=== PATIENT | female | born 1950 | race Hispanic/Latino ===

== ENCOUNTER 2019-05-04 10:51 | Emergency (ER) | payer BC, MEDICARE ==
[~2019-05-04] VITALS: Ht 167.6 cm; Wt 86.2 kg
[2019-05-04] MEDS ORDERED: IBUPROFEN 600 MG TAB PO STA (11:49)
[2019-05-04] MEDS ORDERED: IBUPROFEN 200 MG TAB ONE (12:15)
[2019-05-04] MEDS ORDERED: PENICILLIN G BENZATHINE LA 1.2 MU TBX IM STA (13:17)
[2019-05-04 19:34] VITALS: BP 121/59
== END 2019-05-04 13:42 | disposition home or self-care (01) ==
LOC: FSED 10:51
DX: J02.0 Streptococcal pharyngitis (principal); J01.00 Acute maxillary sinusitis, unspecified; R50.81 Fever presenting with conditions classified elsewhere; I10 Essential (primary) hypertension; M19.90 Unspecified osteoarthritis, unspecified site
CPT/HCPCS: 83518; 87400; 96372; 99283; J0561

== ENCOUNTER 2019-06-16 18:53 | Inpatient (IN) | payer MEDICARE ==
[~2019-06-16] VITALS: Ht 167.6 cm; Wt 84.4 kg
--- NOTE | 2019-06-16 21:10 | Diagnostic Imaging Report ---
EXAM: CHEST SINGLE (PORTABLE) DATE: 06/16/2019 8:30 PM INDICATION: ^SOB ^[id number] ^2039 COMPARISON: None FINDINGS: Lines and tubes: None Heart size normal for projection. No focal pulmonary opacity, pleural effusion or pneumothorax. Upper abdomen unremarkable. No acute bony abnormality. IMPRESSION: No evidence for acute disease. Signed by: Dr. Davis Mason M.D. on 06/16/2019 9:06 PM
[2019-06-16 21:25] LABS: BASOPHILS # (AUTO) 0.1 (0.0-0.1); BASOPHILS % 1.1 % (0.0-1.0); EOSINOPHILS # (AUTO) 0.2 (0.0-0.4); EOSINOPHILS % 2.1 % (0.0-6.0); HEMATOCRIT 39.4 % (34.2-44.1); HEMOGLOBIN 12.2 g/dL (12.0-16.0); LYMPHOCYTES # (AUTO) 1.9 (1.0-3.2); LYMPHOCYTES % 16.4 % (18.0-39.1); MEAN CORPUSCULAR HEMOGLOBIN 27.1 pg (28-32); MEAN CORPUSCULAR VOLUME 87.4 fL (81-99); MONOCYTES % 8.4 % (4.4-11.3); NEUTROPHILS % 69.1 % (38.7-80.0); PLATELET COUNT 313 x10e3/uL (140-360); RED BLOOD COUNT 4.51 x10e6/uL (3.6-5.1)
--- NOTE | 2019-06-16 21:27 | Diagnostic Imaging Report ---
EXAM: CT Abdomen and Pelvis WITHOUT contrast INDICATION: Right flank pain COMPARISON: None. TECHNIQUE: Abdomen and pelvis were scanned utilizing a multidetector helical scanner from the lung base to the pubic symphysis without administration of IV contrast. Absence of intravenous contrast decreases sensitivity for detection of focal lesions and vascular pathology. Coronal and sagittal reformations were obtained. Routine protocol was performed. IV CONTRAST: None ORAL CONTRAST: None COMPLICATIONS: None RADIATION DOSE: Total DLP: 612 mGy*cm Estimated effective dose: (DLP x 0.015 x size factor) mSv CTDIvol has been reviewed. It is below the limits set by the Radiation Protocol Committee (RPC). Dose modulation, iterative reconstruction, and/or weight based adjustment of the mA/kV was utilized to reduce the radiation dose to as low as reasonably achievable. FINDINGS: LINES and TUBES: None. LOWER THORAX : Mild cardiomegaly. Aortic valve calcifications. HEPATOBILIARY: Mild pneumobilia, as seen in patients with prior biliary surgery. No evidence of inflammatory changes. No focal hepatic lesions. No biliary ductal dilation. GALLBLADDER: There are cholecystectomy clips. SPLEEN: No splenomegaly. PANCREAS: No focal masses or ductal dilatation. ADRENALS: No adrenal nodules KIDNEYS/URETERS: No hydronephrosis. No cystic or solid mass lesions. A few punctate nonobstructive right renal calculi. Mild right renal atrophy. Mild urothelial thickening of the right renal pelvis and proximal ureteral. GI TRACT: Small hiatal hernia. No abnormal distention or wall thickening. Bowel anastomotic sutures in the lower mid abdomen with this focal bowel dilation, a common and essentially benign finding seen after bowel anastomosis. Colonic diverticuli without diverticulitis. Appendix is normal. PELVIC ORGANS/BLADDER: Hysterectomy. No adnexal masses. Trace perivesicular fat stranding. LYMPH NODES: No lymphadenopathy. VESSELS: There is mild atherosclerotic disease in the aorta and major arterial branches. PERITONEUM / RETROPERITONEUM: No free air or fluid. BONES: There are degenerative changes in the spine. SOFT TISSUES: Small sublatissimus lipoma in the right lower lateral posterior chest. IMPRESSION: 1. Urinary bladder findings can be seen with cystitis. 2. Subtle findings which can be seen with ascending right urinary tract infection. Mild right renal atrophy and punctate nonobstructive right renal calculi. 3. Colonic diverticulosis without diverticulitis. 4. Mild cardiomegaly. 5. Mild hepatomegaly. 6. Small hiatal hernia. Signed by: Rhett Moctezuma DO on 06/16/2019 9:24 PM
[2019-06-16 21:41] LABS: ALANINE AMINOTRANSFERASE 57 IU/L (0-55); ALBUMIN 3.2 g/dL (3.5-5.0); ALBUMIN/GLOBULIN RATIO 0.7 (0.8-2.0); ALKALINE PHOSPHATASE 272 IU/L (40-150); ANION GAP 12.9 mmol/L (8-16); BLOOD UREA NITROGEN 12 mg/dL (7-26); BUN/CREATININE RATIO 15 (6-25); CALCIUM 9.5 mg/dL (8.4-10.2); CARBON DIOXIDE 26 mmol/L (22-29); CHLORIDE 104 mmol/L (98-107); CREATININE, SERUM 0.81 mg/dL (0.57-1.11); EST GLOMERULAR FILTRATION RATE > 60 ML/MIN (60-); GLUCOSE 112 mg/dL (74-118); POTASSIUM 3.9 mmol/L (3.5-5.1); SODIUM 139 mmol/L (136-145)
[2019-06-16] MEDS ORDERED: CEFEPIME 1GM/NS 0.9% 50 ML 50 ML IV ONE (21:45)
[2019-06-16] MEDS ORDERED: CEFEPIME HCL 1 GM VIAL IV SCH (21:45)
[2019-06-16] MEDS ORDERED: SODIUM CHLORIDE 0.9% 1000ML 1,000 ML IV SCH (21:45)
[2019-06-16 22:04] LABS: BILIRUBIN,URINE NEGATIVE (NEGATIVE); CLARITY,URINE CLEAR (CLEAR); COLOR,URINE YELLOW (YELLOW); KETONES,URINE NEGATIVE (NEGATIVE); LEUKOCYTE ESTERASE ,URINE TRACE (NEGATIVE); NITRITE,URINE POSITIVE (NEGATIVE); PROTEIN,URINE DIPSTICK NEGATIVE (NEGATIVE); URINE UROBILINOGEN 0.2 mg/dL (0.2 - 1)
[2019-06-16 22:18] LABS: BACTERIA,URINE MANY /HPF; EPITHELIAL CELLS,URINE MODERATE /LPF
--- OUTSIDE RECORDS SUMMARY | 2019-06-16 23:43 | XMS REPORT ---
Author Author [facility] Address Unknown Phone Unavailable Care Team Providers Care County Surveyor Name Role Phone Shantal JUAREZ Unavailable Unavailable Problems This patient has no known problems. Allergies, Adverse Reactions, Alerts This patient has no known allergies or adverse reactions. Medications This patient has no known medications. Results Test Description Test Time Test Comments Text Results Atomic Results Result Comments CT ABDOMEN/PELVIS WO 2019 21:11:00 [facility] [address] [address] Patient Name: RAVI CARRANZA MR #: [id number] : 1950 Age/Sex: 69/F Req #: [id number] Adm Physician: Ordered by: PATRIA HOYOS DO Report #: [id number] Location: ER Room/Bed: Procedure: [id number] CT/CT ABDOMEN/PELVIS WO Exam Date: 06/16/19 Exam Time: 2039 REPORT STATUS: Signed EXAM: CT Abdomen and Pelvis WITHOUT contrast INDICATION: Right flank pain COMPARISON: None. TECHNIQUE: Abdomen and pelvis were scanned utilizing a multidetector helical scanner from the lung base to the pubic symphysis without administration of IV contrast. Absence of intravenous contrast decreases sensitivity for detection of focal lesions and vascular pathology. Coronal and sagittal reformations were obtained. Routine protocol was performed. IV CONTRAST: None ORAL CONTRAST: None COMPLICATIONS: None RADIATION DOSE: Total DLP: 612 mGy*cm Estimated effective dose: (DLP x 0.015 x size factor) mSv CTDIvol has been reviewed. It is below the limits set by the Radiation Protocol Committee (RPC). Dose modulation, iterative reconstruction, and/or weight based adjustment of the mA/kV was utilized to reduce the radiation dose to as low as reasonably achievable. FINDINGS: LINES and TUBES: None. LOWER THORAX : Mild cardiomegaly. Aortic valve calcificat ions. HEPATOBILIARY: Mild pneumobilia, as seen in patients with prior biliary surgery. No evidence of inflammatory changes. No focal hepatic lesions. No biliary ductal dilation. GALLBLADDER: There are cholecystectomy clips. SPLEEN: No splenomegaly. PANCREAS: No focal masses or ductal dilatation. ADRENALS: No adrenal nodules KIDNEYS/URETERS: No hydronephrosis. No cystic or solid mass lesions. A few punctate nonobstructive right renal calculi. Mild right renal atrophy. Mild urothelial thickening of the right renal pelvis and proximal ureteral. GI TRACT: Small hiatal hernia. No abnormal distention or wall thickening. Bowel anastomotic sutures in the lower mid abdomen with this focal bowel dilation, a common and essentially benign finding seen after bowel anastomosis. Colonic diverticuli without diverticulitis. Appendix is normal. PELVIC ORGANS/BLADDER: Hysterectomy. No adnexal masses. Trace perivesicular fat stranding. LYMPH NODES: No lymphadenopathy. VESSELS: There is mild atherosclerotic disease in the aorta and major arterial branches. PERITONEUM / RETROPERITONEUM: No free air or fluid. BONES: There are degenerative changes in the spine. SOFT TISSUES: Small sublatissimus lipoma in the right lower lateral posterior chest. IMPRESSION: 1. Urinary bladder findings can be seen with cystitis. 2. Subtle findings which can be seen with ascending right urinary tract infection. Mild right renal atrophy and punctate nonobstructive right renal calculi. 3. Colonic div erticulosis without diverticulitis. 4. Mild cardiomegaly. 5. Mild hepatomegaly. 6. Small hiatal hernia. Signed by: Rhett Moctezuma DO on 2019 9:24 PM Dictated By: RHETT MOCTEZUMA DO 23 Transcribed By: DERRICK on 06/16/192123 COPY TO: PATRIA HOYOS DO CHEST SINGLE (PORTABLE) 2019 21:06:00 [place] [address] Patient Name: RAVI CARRANZA MR #: [id number] : 1950 Age/Sex: 69/F Req #: [id number] Adm Physician: Ordered by: PATRIA HOYOS DO Report #: [id number] Location: ER Room/Bed: Procedure: [id number] DX/CHEST SINGLE (PORTABLE) Exam Date: 06/16/19 Exam Time: 2039 REPORT STATUS: Signed EXAM: CHEST SINGLE (PORTABLE) DATE: 2019 8:30 PM INDICATION: SOB [id number] COMPARISON: None FINDINGS: Lines and tubes: None Heart size normal for projection. No focal pulmonary opacity, pleural effusion or pneumothorax. Upper abdomen unremarkable. No acute bony abnormality. IMPRESSION: No evidence for acute disease. Signed by: Dr. Geoffrey Tellez M.D. on 9:06 PM Dictated By: GEOFFREY TELLEZ MD 05 Transcribed By: DERRICK on 06/16/192105 COPY TO: PATRIA HOYOS DO
[2019-06-17] VITALS (8 sets, daily range): BP systolic 112–170; BP diastolic 53–75
[2019-06-17] MEDS ORDERED: OMEPRAZOLE40 MG PO (00:07)
[2019-06-17] MEDS ORDERED: ENALAPRIL MALEA20 MG PO (00:07)
--- NOTE | 2019-06-17 00:30 | NUR ---
patient is a new admit that arrived via stretcher. patient is awake and talking. patient has been assisted into the bed. bed is in the lowest position and call olsen is within reach. will continue to monitor patient.
[2019-06-17] MEDS: ACETAMINOPHEN 325 MG TAB PO PRN ×2 (01:19→15:41)
--- NOTE | 2019-06-17 07:06 | NUR ---
report given to day nurse. patient is resting comfortably in bed. bed is in lowest position and call olsen is within reach.
[2019-06-17] MEDS ORDERED: SODIUM CHLORIDE 0.9% 250ML 250 ML ONE (16:12)
[2019-06-17] MEDS: ENALAPRIL MALEATE 10 MG TAB PO SCH (16:32)
[2019-06-17] MEDS: CEFTRIAXONE SOD 1 GM/NS 50 ML 50 ML IV SCH (16:32)
--- NOTE | 2019-06-17 20:37 | NUR ---
Received report from day nurse. Patient is resting comfortably in bed. Bed is in lowest position and call olsen is within reach. Will continue to monitor patient.
[2019-06-18] VITALS (8 sets, daily range): BP systolic 129–147; BP diastolic 59–70
--- NOTE | 2019-06-18 06:55 | NUR ---
report given to day nurse. patient is resting comfortably in bed. bed is in lowest position and call olsen is within reach.
[2019-06-18 07:12] LABS: BASOPHILS # (AUTO) 0.1 (0.0-0.1); BASOPHILS % 1.5 % (0.0-1.0); EOSINOPHILS # (AUTO) 0.3 (0.0-0.4); HEMATOCRIT 35.5 % (34.2-44.1); HEMOGLOBIN 10.8 g/dL (12.0-16.0); LYMPHOCYTES # (AUTO) 1.9 (1.0-3.2); MEAN CORPUSCULAR HEMOGLOBIN 26.7 pg (28-32); MEAN CORPUSCULAR HGB CONC 30.4 g/dL (31-35); MEAN CORPUSCULAR VOLUME 87.7 fL (81-99); MONOCYTES # (AUTO) 0.5 (0.2-0.8); MONOCYTES % 8.7 % (4.4-11.3); NEUTROPHILS # (AUTO) 3.2 (2.1-6.9); NEUTROPHILS % 50.9 % (38.7-80.0); PLATELET COUNT 322 x10e3/uL (140-360); RED BLOOD COUNT 4.05 x10e6/uL (3.6-5.1)
[2019-06-18 07:40] LABS: ANION GAP 11.2 mmol/L (8-16); BLOOD UREA NITROGEN 10 mg/dL (7-26); BUN/CREATININE RATIO 13 (6-25); CALCIUM 9.1 mg/dL (8.4-10.2); CARBON DIOXIDE 27 mmol/L (22-29); CHLORIDE 108 mmol/L (98-107); CREATININE, SERUM 0.78 mg/dL (0.57-1.11); EST GLOMERULAR FILTRATION RATE > 60 ML/MIN (60-); GLUCOSE 111 mg/dL (74-118); POTASSIUM 4.2 mmol/L (3.5-5.1); SODIUM 142 mmol/L (136-145)
[2019-06-18] MEDS: ACETAMINOPHEN 325 MG TAB PO PRN ×2 (08:56→20:22)
[2019-06-18] MEDS: PANTOPRAZOLE SOD 40 MG TABEC PO SCH (09:02)
[2019-06-18] MEDS: ENALAPRIL MALEATE 10 MG TAB PO SCH ×2 (09:03→16:22)
[2019-06-18 09:18] LABS: BILIRUBIN,URINE NEGATIVE (NEGATIVE); CLARITY,URINE SL CLOUDY (CLEAR); COLOR,URINE YELLOW (YELLOW); KETONES,URINE NEGATIVE (NEGATIVE); LEUKOCYTE ESTERASE ,URINE NEGATIVE (NEGATIVE); NITRITE,URINE NEGATIVE (NEGATIVE); PROTEIN,URINE DIPSTICK NEGATIVE (NEGATIVE); URINE UROBILINOGEN 0.2 mg/dL (0.2 - 1)
[2019-06-18 09:35] LABS: BACTERIA,URINE MODERATE /HPF; EPITHELIAL CELLS,URINE FEW /LPF; RBC,URINE 0-5 /HPF (0-5)
[2019-06-18] MEDS: CEFTRIAXONE SOD 1 GM/NS 50 ML 50 ML IV SCH (16:21)
--- NOTE | 2019-06-18 17:44 | NUR ---
Pt aox4 and able to verbalize needs. Denies any pain at this time. 0 s/s of acute distress noted.
--- NOTE | 2019-06-18 19:05 | NUR ---
received report from day nurse. patient is resting comfortably in the bed. bed is in the lowest position and call olsen is within reach.
[2019-06-19] VITALS (8 sets, daily range): BP systolic 120–170; BP diastolic 60–88
[2019-06-19 06:23] LABS: BASOPHILS # (AUTO) 0.1 (0.0-0.1); BASOPHILS % 1.7 % (0.0-1.0); EOSINOPHILS # (AUTO) 0.3 (0.0-0.4); EOSINOPHILS % 5.5 % (0.0-6.0); HEMOGLOBIN 11.5 g/dL (12.0-16.0); LYMPHOCYTES # (AUTO) 1.8 (1.0-3.2); LYMPHOCYTES % 30.2 % (18.0-39.1); MEAN CORPUSCULAR HGB CONC 31.1 g/dL (31-35); MEAN CORPUSCULAR VOLUME 86.9 fL (81-99); MONOCYTES # (AUTO) 0.4 (0.2-0.8); MONOCYTES % 7.4 % (4.4-11.3); NEUTROPHILS # (AUTO) 3.2 (2.1-6.9); PLATELET COUNT 362 x10e3/uL (140-360); RED BLOOD COUNT 4.26 x10e6/uL (3.6-5.1); RED CELL DISTRIBUTION WIDTH 12.9 % (11.7-14.4)
[2019-06-19 06:53] LABS: ALANINE AMINOTRANSFERASE 47 IU/L (0-55); ALBUMIN 2.8 g/dL (3.5-5.0); ALBUMIN/GLOBULIN RATIO 0.7 (0.8-2.0); ALKALINE PHOSPHATASE 202 IU/L (40-150); ANION GAP 11.4 mmol/L (8-16); BLOOD UREA NITROGEN 11 mg/dL (7-26); BUN/CREATININE RATIO 15 (6-25); CALCIUM 9.4 mg/dL (8.4-10.2); CARBON DIOXIDE 29 mmol/L (22-29); CHLORIDE 105 mmol/L (98-107); CREATININE, SERUM 0.75 mg/dL (0.57-1.11); EST GLOMERULAR FILTRATION RATE > 60 ML/MIN (60-); GLUCOSE 116 mg/dL (74-118); POTASSIUM 4.4 mmol/L (3.5-5.1); SODIUM 141 mmol/L (136-145)
--- NOTE | 2019-06-19 07:26 | NUR ---
report given to day nurse. patient is resting in bed. bed is in lowest position and call light is within reach.
--- NOTE | 2019-06-19 07:35 | NUR ---
PATIENT IN BED RESTING WITH NO S/S OF DISCOMFORT. CALL RECEIVED FROM LAB STATING THAT PATIENT HAS ESBL IN URINE. CALL PLACE TO MD, AWAITING CALL BACK. ISOLATION CART IN PLACE. BED IN LOWER POSITION, CALL LIGHT AT REACH.
[2019-06-19] MEDS: PANTOPRAZOLE SOD 40 MG TABEC PO SCH (07:58)
[2019-06-19] MEDS ORDERED: LORAZEPAM 1 MG TAB PO ONE (09:00)
[2019-06-19] MEDS ORDERED: GADOBENATE DIMEGLUMINE 1 ML IV ONE (09:05)
[2019-06-19] MEDS ORDERED: SODIUM CHLORIDE 0.9% 50ML 50 ML ONE (09:05)
[2019-06-19] MEDS: ENALAPRIL MALEATE 10 MG TAB PO SCH ×2 (09:14→17:21)
--- NOTE | 2019-06-19 09:17 | NUR ---
PATIENT OFF UNIT TO RADIOLOGY.
--- NOTE | 2019-06-19 10:12 | NUR ---
PATIENT BACK TO UNIT FROM RADIOLOGY. IN BED WITH CALL LIGHT AT REACH.
[2019-06-19] MEDS: MEROPENEM 500MG/ NS 50ML 50 ML IV SCH ×2 (11:14→18:00)
--- NOTE | 2019-06-19 11:52 | NUR ---
CONSENT SIGNED FOR PICC LINE PLACEMENT. RADIOLOGY NOTIFIED.
--- NOTE | 2019-06-19 13:04 | Diagnostic Imaging Report ---
EXAMINATION: CHEST XRAY LINE PLACEMENT INDICATION: Line placement COMPARISON: Chest radiograph 06/16/2019 FINDINGS: LINES/TUBES:Interval left PICC line placement, terminating at the superior vena cava. LUNGS:The lungs are well-inflated. No focal consolidation or pulmonary edema. PLEURA:No pleural effusion or pneumothorax. MEDIASTINUM:The cardiomediastinal silhouette appears normal in size and shape. BONES/SOFT TISSUES:No acute osseous injury. ABDOMEN:No free air under the diaphragm. IMPRESSION: Left PICC line terminates at the superior vena cava. No focal pneumonia or pulmonary edema. Signed by: Gibran Curz MD on 06/19/2019 1:01 PM
--- NOTE | 2019-06-19 13:13 | NUR ---
REQUEST RECEIVED FOR SNF VS HH FOR ABX. CM MET W THE PT AT THE BEDSIDE TO DISCUSS DC PLANNING. PT STATES SHE WOULD PREFER TO RETURN HOME IF POSSIBLE. DISCUSSED [facility]. STATES SHE HAS 3 DAUGHTERS AND HER IS ALSO TEACHABLE. STATES SHE WILL ALSO LEARN TO ADMINISTER MEDS IF NEEDED. PT STATES SHE IS IND W ADL'S. ALSO DISCUSSED A POSSIBLE COPAY. PT STATES IF THERE IS A LARGE COPAY SHE MAY CONSIDER A SNF. TOMAS NOTIFIED OF THIS.
--- NOTE | 2019-06-19 17:11 | Diagnostic Imaging Report ---
TECHNIQUE: MRI of the abdomen and MRCP WITHOUT and WITH intravenous contrast. 3-D volume reconstructions were obtained to evaluate the biliary ductal system. INDICATION: ^ABN LIVER ENZYMES ^Y. COMPARISON: CT from 06/16/2019. FINDINGS: LOWER THORAX: Unremarkable. LIVER: The liver is enlarged. No hepatic signal abnormality. There is an area of mild increased T2-weighted signal in segment V which measures 3.1 cm on axial T2-weighted image 20. This does mildly hyperenhancement on delayed phase imaging. There is mild interstitial diffusion in this area as well. BILIARY: Prior cholecystectomy. Pneumobilia. The common bile duct measures 0.3 cm in diameter. There has likely been a prior hepaticojejunostomy. SPLEEN: No splenomegaly. PANCREAS: No focal masses or ductal dilatation. ADRENALS: No adrenal nodules. KIDNEYS/URETERS: No hydronephrosis or solid mass lesions. Mild right renal cortical scarring. PERITONEUM/RETROPERITONEUM: No free fluid. LYMPH NODES: No lymphadenopathy. VESSELS: Conventional hepatic arterial anatomy. A rounded arterial structure in the hepatic hilum measures 0.7 cm I see on axial image 74 GI TRACT: No distention or wall thickening. Prior small bowel resection and anastomosis with patulous small bowel at the anastomotic site. BONES AND SOFT TISSUES: Unremarkable. IMPRESSION: The pneumobilia makes evaluation for underlying stones suboptimal. However, none is definitely seen. 1. There is a 3.1 cm lesion in the liver which is hyperintense on T2-weighted imaging with mildly restricted diffusion and delayed enhancement. If the patient has current signs of infection, phlegmon is the most likely diagnosis, especially given a prior hepaticojejunostomy and pneumobilia. Please correlate for signs of infection. The differential also includes focal nodular hyperplasia, cholangiocarcinoma, and a metastasis. A follow-up MRI of the abdomen with and without intravenous contrast is recommended in 3 months to document resolution after treatment. If the patient does not have signs of infection, consider Eovist MRI. 2. No definite choledocholithiasis. 3. Hepatomegaly. 4. The rounded area of arterial phase hyperenhancement in the hepatic hilum measures 0.7 cm and could be a small right hepatic artery aneurysm but is indeterminate. Close attention on follow-up imaging is recommended. Signed by: Johnny Cross JR, MD on 06/19/2019 5:08 PM
--- NOTE | 2019-06-19 18:56 | NUR ---
REPORT GIVEN TO ON COMING NURSE. PATIENT IN BED RESTING WITH NO S/S OF DISTRESS.
--- NOTE | 2019-06-19 19:15 | NUR ---
patient received awake, alert, lying quietly in bed. no c/o pain noted. pm assessment complete. daughter at the bedside. patient/daughter instructed to call for assistance when needed.
[2019-06-20] VITALS: BP 164/70
[2019-06-20] MEDS: MEROPENEM 500MG/ NS 50ML 50 ML IV SCH ×3 (02:00→17:19)
--- NOTE | 2019-06-20 03:00 | NUR ---
0300 labs drawn from left upper arm picc line at this time and sent to lab.
[2019-06-20 03:27] LABS: ANION GAP 11.1 mmol/L (8-16); BLOOD UREA NITROGEN 13 mg/dL (7-26); BUN/CREATININE RATIO 17 (6-25); CALCIUM 9.4 mg/dL (8.4-10.2); CARBON DIOXIDE 29 mmol/L (22-29); CHLORIDE 102 mmol/L (98-107); CREATININE, SERUM 0.77 mg/dL (0.57-1.11); EST GLOMERULAR FILTRATION RATE > 60 ML/MIN (60-); GLUCOSE 117 mg/dL (74-118); POTASSIUM 4.1 mmol/L (3.5-5.1); SODIUM 138 mmol/L (136-145)
[2019-06-20 04:35] VITALS: BP 125/71
[2019-06-20 04:41] LABS: BASOPHILS # (AUTO) 0.1 (0.0-0.1); BASOPHILS % 1.1 % (0.0-1.0); EOSINOPHILS # (AUTO) 0.3 (0.0-0.4); EOSINOPHILS % 4.1 % (0.0-6.0); HEMATOCRIT 37.6 % (34.2-44.1); HEMOGLOBIN 11.7 g/dL (12.0-16.0); LYMPHOCYTES # (AUTO) 1.8 (1.0-3.2); LYMPHOCYTES % 22.9 % (18.0-39.1); MEAN CORPUSCULAR HEMOGLOBIN 27.5 pg (28-32); MEAN CORPUSCULAR HGB CONC 31.1 g/dL (31-35); MEAN CORPUSCULAR VOLUME 88.3 fL (81-99); MONOCYTES # (AUTO) 0.6 (0.2-0.8); MONOCYTES % 6.9 % (4.4-11.3); NEUTROPHILS # (AUTO) 5.1 (2.1-6.9); PLATELET COUNT 412 x10e3/uL (140-360); RED BLOOD COUNT 4.26 x10e6/uL (3.6-5.1)
[2019-06-20] MEDS ORDERED: MERREM1 GM IV (05:41)
--- NOTE | 2019-06-20 07:25 | NUR ---
PATIENT IN BED RESTING WITH EYES CLOSED, NO RESPIRATORY DISTRESS OBSERVED. BED IN LOWER POSITION, CALL LIGHT AT REACH.
[2019-06-20 07:30] VITALS: BP 169/64
[2019-06-20] MEDS: PANTOPRAZOLE SOD 40 MG TABEC PO SCH (07:53)
[2019-06-20 08:00] VITALS: BP 169/64
[2019-06-20] MEDS: ENALAPRIL MALEATE 10 MG TAB PO SCH ×2 (08:45→17:19)
--- NOTE | 2019-06-20 11:33 | NUR ---
PATIENT OUT OF BED TO CHAIR WATCHING TV, NO COMPLAIN VOICED. CALL LIGHT AT REACH.
[2019-06-20 12:00] VITALS: BP 148/67
--- NOTE | 2019-06-20 12:09 | NUR ---
ORDER RECEIVED FOR MERREM 1GM IV Q12HR X 14DAYS. MET W THE PT AT THE BEDSIDE. CHOICE WAS PROVIDED. PT CHOSE [facility]. CHOICE LETTER WAS SIGNED AND COPY TO PT AND COPY TO CHART. REFERRA WAS FAXED TO [facility] @ OFF: [phone] / FAX: [phone]
--- NOTE | 2019-06-20 15:55 | NUR ---
PATIENT SITTING AT BED SIDE TALKING TO FAMILY MEMBER VISITING. CALL LIGHT AT REACH.
[2019-06-20 16:00] VITALS: BP 126/67
--- NOTE | 2019-06-20 16:05 | NUR ---
HOME HEALTH DISCHARGE NOTE PATIENT ADDRESS WHERE SERVICE WILL BE RECEIVED: [facility] [facility] [address] [place] [address] PATIENT CONTACT NUMBER: [phone] NAME OF HOME HEALTH COMPANY: [facility] TELEPHONE/FAX NUMBER OF COMPANY: OFF: [phone] / FAX: [phone] ADDRESS OF COMPANY: [address] [place] [address] [address] [place] [address] SERVICES TO RECEIVE: IV ANTIBIOTICS; MERREM 1GM IV Q12HRS FOR 14 DAYS. DC PICC LINE AFTER ANTIBIOTIC IS COMPLETED ANTICIPATED DATE SERVICES WILL BEGIN: 06/21/2019 Please call the company above if you have not received a call to schedule a home visit within 24 hours of discharge.
--- NOTE | 2019-06-20 16:05 | NUR ---
IMM LETTER EXPLAINED TO PT. PT VERBALIZED UNDERSTANDING. IMM LETTER SIGNED. COPY TO PT AND COPY TO CHART.
--- NOTE | 2019-06-20 18:10 | NUR ---
PATIENT DISCHARGED HOME . DISCHARGE INSTRUCTIONS AND FOLLOW UP GIVEN TO PATIENT, SHE VERBALIZED UNDERSTANDING. IV TO RIGHT WRIST REMOVED WITH TIP INTACT. ALL PERSONAL ITEMS TAKEN WITH PATIENT. LEFT UNIT PER WHEEL CHAIR TO FRONT LOBBY IN STABLE CONDITION
--- NOTE | 2019-06-26 05:04 | Discharge Summary ---
ADMISSION DIAGNOSES: 1. Urinary tract infection, present on admission. 2. Right upper quadrant abdominal pain. 3. Hypertension. 4. Gastroesophageal reflux disease. DISCHARGE DIAGNOSES: 1. Urinary tract infection, present on admission. 2. Right upper quadrant abdominal pain. 3. Hypertension. 4. Gastroesophageal reflux disease. 5. Rule out GI bleed. 6. Extended-spectrum beta-lactamases Escherichia coli of the urine, present on admission. HISTORY: Hypertension and GERD. SURGICAL HISTORY: Cholecystectomy. FAMILY HISTORY: Noncontributory. HOSPITAL COURSE: A 69-year-old female with history of hypertension, admits with complaints of right upper quadrant pain. She had a cholecystectomy done in history of cholangitis. She also had nausea and vomiting for the last couple of days, but denies nausea and vomiting on admission. On admission, chest x-ray was done, which was negative. CT of the abdomen and pelvis showed urinary bladder findings can be seen with cystitis, colonic diverticulosis without diverticulitis, small hiatal hernia, mild cardiomegaly and hepatomegaly. An MRCP was done, which showed a 3.1 cm lesion in the liver. No definite choledocholithiasis. Hepatomegaly and hepatic hilum measuring 0.7 cm, which could represent a small right hepatic artery aneurysm, but is age indeterminate. Urine culture was sent, which came back positive for ESBL, so the patient had a PICC line placed and 2 weeks of IV Merrem were arranged. At time of discharge, the patient is feeling much better and ready to go home. She understands discharge instruction and agrees to plan. Home health was arranged and the patient will discharge home. Dictated by Yasmeen Hernandez NP MD CLARISA Chopra/MODL /[id number]
== END 2019-06-20 18:05 | disposition home health service (06) | DRG 690 ==
LOC: ER 18:53 → ERHOLD 23:40 → MED/SURG3 06-17 00:29 → OBSVTOIN 06-19 10:46
PROVIDERS: ADMIT Internal Medicine; ATTEND Internal Medicine
PROC: 02HV33Z Insertion of Infusion Device into Superior Vena Cava, Percutaneous Approach (ICD-10-PCS; principal; 2019-06-19)
PROC: B548ZZA Ultrasonography of Superior Vena Cava, Guidance (ICD-10-PCS; 2019-06-19)
DX: N30.00 Acute cystitis without hematuria (principal); Z16.12 Extended spectrum beta lactamase (ESBL) resistance; K57.30 Diverticulosis of large intestine without perforation or abscess without bleeding; K21.9 Gastro-esophageal reflux disease without esophagitis; Z90.49 Acquired absence of other specified parts of digestive tract; E66.9 Obesity, unspecified; Z68.31 Body mass index [BMI] 31.0-31.9, adult; Z86.010 Personal history of colon polyps; B96.20 Unspecified Escherichia coli [E. coli] as the cause of diseases classified elsewhere; Z88.5 Allergy status to narcotic agent; K44.9 Diaphragmatic hernia without obstruction or gangrene; I51.7 Cardiomegaly; R16.0 Hepatomegaly, not elsewhere classified; I72.8 Aneurysm of other specified arteries; I11.9 Hypertensive heart disease without heart failure
CPT/HCPCS: 36415; 36569; 71045; 74176; 74183; 80048; 80053; 81001; 82270; 85025; 87086; 87186; 96365; 99284; G0378; J0692; J0696; J7030; J7050

== ENCOUNTER 2019-06-30 18:56 | Emergency (ER) | payer MEDICARE ==
[~2019-06-30] VITALS: Ht 167.6 cm; Wt 84.4 kg
[~2019-06-30 18:56] MED LIST: ENALAPRIL MALEA20 MG PO; MERREM1 GM IV; OMEPRAZOLE40 MG PO
[2019-06-30] MEDS ORDERED: ACETAMINOPHEN 325 MG TAB ONE (19:07)
[2019-06-30] MEDS ORDERED: ACETAMINOPHEN 325 MG TAB PO ONE (19:15)
[2019-06-30 19:49] LABS: BASOPHILS # (AUTO) 0.1 (0.0-0.1); BASOPHILS % 1.2 % (0.0-1.0); EOSINOPHILS # (AUTO) 0.1 (0.0-0.4); EOSINOPHILS % 1.3 % (0.0-6.0); HEMOGLOBIN 11.3 g/dL (12.0-16.0); LYMPHOCYTES # (AUTO) 1.4 (1.0-3.2); LYMPHOCYTES % 14.7 % (18.0-39.1); MEAN CORPUSCULAR HEMOGLOBIN 27.2 pg (28-32); MEAN CORPUSCULAR HGB CONC 31.4 g/dL (31-35); MEAN CORPUSCULAR VOLUME 86.5 fL (81-99); MONOCYTES # (AUTO) 0.9 (0.2-0.8); MONOCYTES % 9.7 % (4.4-11.3); NEUTROPHILS # (AUTO) 6.8 (2.1-6.9); NEUTROPHILS % 72.7 % (38.7-80.0); PLATELET COUNT 305 x10e3/uL (140-360); RED BLOOD COUNT 4.16 x10e6/uL (3.6-5.1); RED CELL DISTRIBUTION WIDTH 12.8 % (11.7-14.4)
[2019-06-30 20:08] LABS: BILIRUBIN,URINE NEGATIVE (NEGATIVE); CLARITY,URINE SL CLOUDY (CLEAR); COLOR,URINE YELLOW (YELLOW); KETONES,URINE NEGATIVE (NEGATIVE); LEUKOCYTE ESTERASE ,URINE NEGATIVE (NEGATIVE); NITRITE,URINE NEGATIVE (NEGATIVE); PROTEIN,URINE DIPSTICK 1+ (NEGATIVE); URINE UROBILINOGEN 0.2 mg/dL (0.2 - 1)
[2019-06-30 20:09] LABS: BACTERIA,URINE MODERATE /HPF; EPITHELIAL CELLS,URINE MANY /LPF
[2019-06-30 20:10] LABS: ALANINE AMINOTRANSFERASE 29 IU/L (0-55); ALBUMIN 3.1 g/dL (3.5-5.0); ALBUMIN/GLOBULIN RATIO 0.7 (0.8-2.0); ALKALINE PHOSPHATASE 194 IU/L (40-150); ANION GAP 12.9 mmol/L (8-16); BLOOD UREA NITROGEN 13 mg/dL (7-26); BUN/CREATININE RATIO 17 (6-25); CALCIUM 9.3 mg/dL (8.4-10.2); CARBON DIOXIDE 27 mmol/L (22-29); CHLORIDE 97 mmol/L (98-107); CREATININE, SERUM 0.77 mg/dL (0.57-1.11); EST GLOMERULAR FILTRATION RATE > 60 ML/MIN (60-); GLUCOSE 127 mg/dL (74-118); POTASSIUM 3.9 mmol/L (3.5-5.1); SODIUM 133 mmol/L (136-145)
--- NOTE | 2019-06-30 20:36 | Diagnostic Imaging Report ---
EXAMINATION: ABDOMEN ACUTE SERIES W/PA CXR INDICATION: FEVER/PAIN COMPARISON: None FINDINGS: PA and lateral views TUBES and LINES: Cholecystectomy clips LUNGS: Lungs are well inflated. There is no evidence of pneumonia or pulmonary edema. PLEURA: No pleural effusion or pneumothorax. HEART AND MEDIASTINUM: The cardiomediastinal silhouette is unremarkable. BONES AND SOFT TISSUES: No acute osseous lesion. Soft tissues are unremarkable. ABDOMEN AND PELVIS: Normal volume of stool in the colon. No dilated loops of small bowel. No abnormal abdominal calcifications. No abnormal soft tissue masses. No pneumoperitoneum. No acute osseous abnormality. IMPRESSION: No acute abnormality. Signed by: Jaswant Snow MD on 06/30/2019 8:32 PM
[2019-06-30] MEDS ORDERED: MORPHINE SULFATE 5 MG/ML VIAL IV ONE (22:00)
[2019-06-30] MEDS ORDERED: MORPHINE SULFATE 2 MG/ML SYR 1ML IV ONE (22:00)
--- NOTE | 2019-06-30 22:30 | Diagnostic Imaging Report ---
EXAM: CT Abdomen and Pelvis WITH contrast INDICATION: ^lower abdominal pain and fever ^[id number] ^2140 COMPARISON: CT abdomen/pelvis dated 06/16/2019 TECHNIQUE: Abdomen and pelvis were scanned utilizing a multidetector helical scanner from the lung base to the pubic symphysis after administration of IV contrast. Coronal and sagittal reformations were obtained. Dose modulation, iterative reconstruction, and/or weight based adjustment of the mA/kV was utilized to reduce the radiation dose to as low as reasonably achievable. Routine protocol was performed. Scan was performed when during portal venous phase. IV CONTRAST: 100 mL of Isovue-370 ORAL CONTRAST: Water COMPLICATIONS: None RADIATION DOSE: Total DLP: 533.78 mGy*cm Estimated effective dose: (DLP x 0.015 x size factor) mSv CTDIvol has been reviewed. It is below the limits set by the Radiation Protocol Committee (RPC). FINDINGS: LINES and TUBES: None. LOWER THORAX: Unremarkable HEPATOBILIARY: Hepatomegaly. No focal hepatic lesions. No biliary ductal dilation. Mild central and left hepatic lobe pneumobilia. GALLBLADDER: Surgically absent. SPLEEN: No splenomegaly. PANCREAS: No focal masses or ductal dilatation. ADRENALS: No adrenal nodules KIDNEYS/URETERS: Kidneys enhance symmetrically. Minimal right renal hydronephrosis and mild to moderate hydroureter. There is mild right renal cortical atrophy. Left kidney is unremarkable. No left hydronephrosis. No renal stones. GI TRACT: No abnormal distention or evidence of bowel obstruction. Wall thickening and inflammation surrounding the sigmoid colon. Sigmoid diverticulosis. Intact right abdomen bowel anastomosis. Appendix is normal. PELVIC ORGANS/BLADDER: Unremarkable. Hysterectomy. LYMPH NODES: No lymphadenopathy. VESSELS: Unremarkable. PERITONEUM / RETROPERITONEUM: No free air or fluid. BONES: Unchanged right femoral neck sclerotic focus, likely a bone island. SOFT TISSUES: Unremarkable. IMPRESSION: 1. Sigmoid diverticulitis. No evidence of perforation or abscess formation. 2. Minimal right hydronephrosis and mild to moderate right hydroureter with mild right renal cortical atrophy. No evidence of obstructive urolithiasis. Signed by: Dr. Homer Montgomery MD on 06/30/2019 10:27 PM
[2019-06-30] MEDS ORDERED: IOPAMIDOL 370 MG/ML 200 ML INFUS..BTL INJ ONE (22:38)
[2019-06-30] MEDS ORDERED: SODIUM CHLORIDE 0.9% 50ML 50 ML ONE (22:38)
== END 2019-06-30 23:18 | disposition home or self-care (01) ==
LOC: ER 18:56
DX: R10.30 Lower abdominal pain, unspecified (principal); R10.2 Pelvic and perineal pain; R11.2 Nausea with vomiting, unspecified; K57.32 Diverticulitis of large intestine without perforation or abscess without bleeding; I10 Essential (primary) hypertension
CPT/HCPCS: 36415; 74022; 74177; 80053; 81001; 83605; 85025; 87040; 87071; 87205; 99284; J2270; Q9967

== ENCOUNTER → 2019-12-27 | Day surgery (SDC) | payer MEDICARE, OTHER ==
[2019-12-22 12:52] LABS: BASOPHILS # (AUTO) 0.1 (0.0-0.1); BASOPHILS % 1.3 % (0.0-1.0); EOSINOPHILS # (AUTO) 0.3 (0.0-0.4); EOSINOPHILS % 3.7 % (0.0-6.0); HEMATOCRIT 36.8 % (34.2-44.1); HEMOGLOBIN 11.3 g/dL (12.0-16.0); LYMPHOCYTES # (AUTO) 1.7 (1.0-3.2); LYMPHOCYTES % 19.7 % (18.0-39.1); MEAN CORPUSCULAR HEMOGLOBIN 26.9 pg (28-32); MEAN CORPUSCULAR HGB CONC 30.7 g/dL (31-35); MEAN CORPUSCULAR VOLUME 87.6 fL (81-99); MONOCYTES # (AUTO) 0.7 (0.2-0.8); MONOCYTES % 7.9 % (4.4-11.3); NEUTROPHILS # (AUTO) 5.7 (2.1-6.9); NEUTROPHILS % 66.8 % (38.7-80.0); PLATELET COUNT 307 x10e3/uL (140-360); RED CELL DISTRIBUTION WIDTH 13.5 % (11.7-14.4)
[~2019-12-27] MED LIST changes: +FENTANYL CITRATE/PF 100MCG/2 ML INJ ONE; +GABAPENTIN100 MG PO; +GLUCAGON FOR INJ 1 MG VIAL ONE; +HYOSCYAMINE 0.125 MG TAB ONE; +LIDOCAINE HCL 2% LOCAL INJ 5 ML SDV VIAL INJ ONE; +MIDAZOLAM HCL 2 MG/2 ML VIAL ONE; +NITROFURANTOIN100 MG PO; +ONDANSETRON HCL INJ 2MG/ML 2ML 2 MG/ML VIAL ONE; +PROPOFOL IV EMULSION 10 MG/ML 20 ML VIAL ONE; +TYLENOL325 M2 PO
[2019-12-27 10:15] VITALS: BP 112/58
--- NOTE | 2019-12-27 14:36 | Operative Report ---
DATE OF PROCEDURE: 12/27/2019 SURGEON: Elfego Valenzuela MD PROCEDURES: EGD with biopsies, colonoscopy with polypectomy. INDICATIONS FOR EGD: Upper abdominal pain, nausea, bloating. INDICATIONS FOR COLONOSCOPY: Surveillance colonoscopy, personal history of colon polyps. MEDICATIONS: The patient was done under MAC, please see anesthesiologist's note. PROCEDURE IN DETAIL: With the patient in the left lateral decubitus position, a flexible fiberoptic Olympus gastroscope was introduced into the esophagus under direct visualization without any difficulty. There was some patchy erythema noted in distal esophagus. The scope was then advanced with ease into the stomach traversing a small hiatal hernia. Mucosa overlying the antrum and the body revealed some patchy erythema and [id number] edema, and biopsies were obtained and sent to stain for H. pylori. Pylorus was of normal contour and shape, was intubated with ease and the scope was advanced all the way to the second portion of the duodenum. Biopsies were obtained from the proximal second portion and duodenal bulb to rule out sprue. The scope was then withdrawn back into the stomach and retroflexed, mucosa overlying the fundus and the cardia appeared to be within normal limits. The scope was then straightened out, it was subsequently withdrawn, and the patient tolerated the procedure well. IMPRESSION: 1. Distal esophagitis, mild. 2. Small hiatal hernia. 3. Gastritis, biopsied, biopsies sent to stain for Helicobacter pylori. 4. Rule out sprue. PLAN: Follow up histology. Continue omeprazole 40 mg one p.o. q.a.m. before meals. The patient was then turned around and after adequate lubrication of the anal canal, a flexible fiberoptic Olympus colonoscope was inserted into the rectum with ease and advanced all the way to the cecum. Mucosa overlying the cecum appeared to be within normal limits. Two polyps were hot snared from the ascending colon. The transverse appeared to be within normal limits. One polyp was hot biopsied and site was hemoclipped. One polyp was hot snared from the descending colon. Diverticular disease was noted to involve the sigmoid colon. The rectum appeared to be within normal limits. The scope was then retroflexed into the distal rectum and small internal hemorrhoids were noted, none of which was actively bleeding. The scope was then straightened out, it was subsequently withdrawn, and the patient tolerated the procedure well. IMPRESSION: 1. Ascending colon polyps x2, hot snared. 2. Descending colon polyps x2, one hot biopsied and hemoclipped x1, and one hot snared. 3. Diverticulosis. 4. Internal hemorrhoids, none actively bleeding. PLAN: Follow up histology. Initiate high-fiber, low-fat diet. Initiate high-fiber supplement. The patient might benefit from a followup colonoscopy in 3 years. Elfego Valenzuela MD [facility]/ARVINL /[id number] cc: Reg Liriano DO
== END | disposition home or self-care (01) ==
LOC: OR 06:33
PROVIDERS: ATTEND Internal Medicine Gastroenterology
DX: K20.9 Esophagitis, unspecified (principal); K29.70 Gastritis, unspecified, without bleeding; K44.9 Diaphragmatic hernia without obstruction or gangrene; K63.5 Polyp of colon; K57.30 Diverticulosis of large intestine without perforation or abscess without bleeding; K64.8 Other hemorrhoids; D12.2 Benign neoplasm of ascending colon; D12.4 Benign neoplasm of descending colon; Z88.5 Allergy status to narcotic agent; Z01.810 Encounter for preprocedural cardiovascular examination; Z01.812 Encounter for preprocedural laboratory examination; Z11.59 Encounter for screening for other viral diseases
CPT/HCPCS: 36415; 43239; 45385; 85025; 87635; 93005; J1610; J2001; J2250; J2405; J2704; J3010; 45384

== ENCOUNTER 2020-01-08 15:55 | Emergency (ER) | payer MEDICARE, OTHER ==
[~2020-01-08] VITALS: Ht 167.6 cm; Wt 84.6 kg
[~2020-01-08 15:55] MED LIST changes: -FENTANYL CITRATE/PF 100MCG/2 ML INJ ONE; -GLUCAGON FOR INJ 1 MG VIAL ONE; -HYOSCYAMINE 0.125 MG TAB ONE; -LIDOCAINE HCL 2% LOCAL INJ 5 ML SDV VIAL INJ ONE; -MIDAZOLAM HCL 2 MG/2 ML VIAL ONE; -ONDANSETRON HCL INJ 2MG/ML 2ML 2 MG/ML VIAL ONE; -PROPOFOL IV EMULSION 10 MG/ML 20 ML VIAL ONE
--- NOTE | 2020-01-08 16:32 | NUR ---
{null, Report and care hand off given to LEYLA Hercules. }
[2020-01-08] MEDS ORDERED: SODIUM CHLORIDE 0.9% 500ML 500 ML IV STA (16:35)
[2020-01-08] MEDS ORDERED: IOPAMIDOL 370 MG/ML 200 ML INFUS..BTL INJ ONE (16:43)
[2020-01-08] MEDS ORDERED: SODIUM CHLORIDE 0.9% 50ML 50 ML ONE (16:43)
[2020-01-08] MEDS ORDERED: ONDANSETRON HCL INJ 2MG/ML 2ML 2 MG/ML VIAL IV STA (16:54)
[2020-01-08] MEDS ORDERED: ONDANSETRON HCL INJ 2MG/ML 2ML 2 MG/ML VIAL ONE (17:09)
[2020-01-08] MEDS ORDERED: SODIUM CHLORIDE 0.9% 500ML 500 ML ONE (17:10)
--- NOTE | 2020-01-08 17:46 | Diagnostic Imaging Report ---
EXAMINATION: PA and lateral views of the chest. COMPARISON: PA chest 06/30/2019 CLINICAL HISTORY: Dehydrated, constipation DISCUSSION: Lines/tubes: None. Lungs: The lungs are well inflated and clear. There is no evidence of pneumonia or pulmonary edema. Pleura: There is no pleural effusion or pneumothorax. Heart and mediastinum: Cardiomediastinal silhouette is unremarkable. Pulmonary vasculature is normal. Bones and soft tissues: No acute bony abnormalities. Degenerative changes in the thoracic spine IMPRESSION: No acute cardiopulmonary abnormalities. Signed by: Dr. Navdeep Riojas M.D. on 01/08/2020 5:42 PM
--- NOTE | 2020-01-08 18:06 | Diagnostic Imaging Report ---
EXAMINATION: CT of the abdomen and pelvis with contrast. TECHNIQUE: Spiral CT images of the abdomen and pelvis were performed from the lung bases to the lesser trochanters after the intravenous administration of 96 cc of Isovue 370 and the oral administration of water. Coronal and sagittal reformatted images were obtained. COMPARISON: CT abdomen and pelvis with contrast 06/30/2019 CLINICAL HISTORY:Abdominal pain for 3 days DISCUSSION: ABDOMEN/PELVIS: LOWER THORAX:Unremarkable. HEPATOBILIARY: No focal hepatic lesions. No intra or extrahepatic biliary ductal dilation. GALLBLADDER: Cholecystectomy clips. SPLEEN: No splenomegaly. PANCREAS: No focal masses or ductal dilatation. ADRENALS: No adrenal nodules. KIDNEYS/URETERS: No hydronephrosis, stones, or solid mass lesions. Cortical scarring in the right kidney. PELVIC ORGANS/BLADDER: Bladder is unremarkable. Uterus is absent. No adnexal masses. PERITONEUM/RETROPERITONEUM: No free air or fluid. LYMPH NODES: No intra-abdominal, retroperitoneal, pelvic or inguinal lymphadenopathy. VESSELS: The celiac trunk,superior and inferior mesenteric and bilateral renal arteries are patent The portal, superior mesenteric and splenic veins are patent. GI TRACT: 6-7 cm segment of the mid sigmoid colon, which shows moderate wall thickening and moderate surrounding fat stranding (series 2, image 61), very similar to prior CT dated 06/30/2019. 1-2 mm air foci in the sigmoid mesentery (for examples series 2, image 58). No adjacent well-defined enhancing fluid collections. Rest of the bowel shows no wall thickening, dilation or obstruction. Stable postoperative changes in the proximal small bowel. BONES AND SOFT TISSUE: No aggressive lytic or suspicious focal sclerotic lesions. No soft tissue abnormalities. IMPRESSION: 1. Findings consistent with sigmoid diverticulitis. 1-2 mm air foci in the sigmoid mesentery are consistent with a contained microperforation. No blaine pneumoperitoneum or adjacent abscess. Signed by: Dr. Navdeep Riojas M.D. on 01/08/2020 6:02 PM
[2020-01-08] MEDS ORDERED: PIPER-TAZ 3.375 GM 50 ML IV STA (18:21)
[2020-01-08] MEDS ORDERED: PIPER-TAZ 3.375 GM 50 ML ONE (18:39)
[2020-01-08] MEDS ORDERED: SODIUM CHLORIDE 0.9% 1000ML 1,000 ML ONE (18:47)
--- NOTE | 2020-01-08 18:59 | Emergency Department Note ---
History of Present Illnes History of Present Illness Chief Complaint: blq pain History of Present Illness This is a 69 year old female. was doing well until 2 days ago then epigastric pain then acute on chronic epigastric pain that resolved. then 15 hours ago blq pain then nausea Historian: Patient Arrival Mode: Car History limited by: condition of the patient (normal) Transaction Manager Required: No Onset (how long ago): hour(s) (15) Location: blq Quality: sharp Radiation: Denies non-radiation Severity: moderate Onset quality: sudden Duration (how long): hour(s) (15 ) Timing of current episode: constant Progression: worsening Chronicity: recurrent (diverticulitis) Context: Denies recent illness, Denies recent surgery, Denies recent immobiliz ation, Denies recent travel, Denies trauma/injury, Denies new medications, Denies hx of DVT/PE, Denies non-compliance w/ medications Relieving factors: rest Exacerbating factors: movement Associated symptoms: Reports nausea/vomiting (nausea) Treatments prior to arrival: none Past Medical/Family History Physician Review I have reviewed the patient's past medical and family history. Any updates have been documented here. Past Medical History Recent Fever: No Clinical Suspicion of Infectio: No New/Unexplained Change in Ment: No Past Medical History: Hypertension, UTI's, GERD, Osteoarthritis Past Surgical History: Cholecysctectomy, Hysterectomy Other Surgery: EXPLORATORY LAP Social History Smoking Cessation: Never Smoker Alcohol Use: None Any Illegal Drug Use: No TB Exposure/Symptoms: No Physically hurt or threatened: No Other Last Tetanus: UTD Any Pre-Existing Lines (PICC,: No Is patient up to date on immun: Yes Last Flu: No Last Pneumovax: UTD Review of Systems Review of Systems Constitutional: Reports no symptoms EENTM: Reports no symptoms Cardiovascular: Reports no symptoms Respiratory: Reports no symptoms Gastrointestinal: Reports abdominal pain, Reports nausea Genitourinary: Reports no symptoms Musculoskeletal: Reports no symptoms Integumentary: Reports no symptoms Neurological: Reports no symptoms Psychological: Reports no symptoms Endocrine: Reports no symptoms Hematological/Lymphatic: Reports no symptoms Review of other systems: All other systems negative Physical Exam Related Data Allergies: Coded Allergies: codeine (Verified Allergy, Unknown, 06/16/19) hydrocodone (Verified Adverse Reaction, Severe, NAUSEA, 12/21/19) Triage Vital Signs Vital Signs Date Time Temp Pulse Resp B/P (MAP) Pulse Ox O2 Delivery O2 Flow Rate FiO2 01/08/20 16:00 98.9 82 20 137/54 96 Vital signs reviewed: Yes Physical Exam CONSTITUTIONAL Constitutional: Present well-developed, Present well-nourished HENT HENT: Present normocephalic, Present atraumatic, Present oropharynx clear/moist, Present nose normal HENT L/R: Present left ext ear normal, Present right ext ear normal EYES Eyes: Reports PERRL, Reports conjunctivae normal NECK Neck: Present ROM normal PULMONARY Pulmonary: Present effort normal, Present breath sounds normal CARDIOVASCULAR Cardiovascular: Present regular rhythm, Present heart sounds normal, Present capillary refill normal, Present normal rate GASTROINTESTINAL Abdominal: Present soft, Present bowel sounds normal, Present tender, Present guarding, Present other (llq tenderness) GENITOURINARY Genitourinary: Present exam deferred SKIN Skin: Present warm, Present dry MUSCULOSKELETAL Musculoskeletal: Present ROM normal NEUROLOGICAL Neurological: Present alert, Present oriented x 3, Present no gross motor or sensory deficits PSYCHOLOGICAL Psychological: Present mood/affect normal, Present judgement normal Results Laboratory Lab results reviewed: Yes (cbc nl except [id number], nl cmp/lfts, ) Imaging Imaging results reviewed: Yes (ct abd/pelvis= diverticulitis) Impressions CXR= NEGATIVE Assessment & Plan Medical Decision Making MDM spoke to dr west- gen surgeon - at 1835hrs and accepts toransfer of pt to [facility]. spoke to dr mckeon -hospitalist-at 1850hrs and accepts transfer of pt Assessment & Plan Final Impression: (1) Diverticulitis of colon with perforation Last Vital Signs Date Time Temp Pulse Resp B/P (MAP) Pulse Ox O2 Delivery O2 Flow Rate FiO2 01/08/20 16:00 98.9 82 20 137/54 96 Home Meds Reported Medications Omeprazole (OMEPRAZOLE) 40 Mg Capsule., 40 MG PO DAILY 06/17/19 Enalapril Maleate (ENALAPRIL MALEATE) 20 Mg Tablet, 20 MG PO BID 06/17/19 Discontinued Reported Medications Acetaminophen (Tylenol) 325 Mg Capsule, 650 MG PO DAILY 12/21/19 Gabapentin (GABAPENTIN) 100 Mg Capsule, 100 MG PO PRN 12/21/19 Nitrofurantoin Macrocrystal (NITROFURANTOIN) 100 Mg Capsule, 100 MG PO Q12H 12/21/19 Medications in the ED Sodium Chloride 500 ml @ 500 mls/hr Q1H STAT IV Last administered on 01/08/20at 17:10; Admin Dose 500 MLS/HR; Start 01/08/20 at 16:35; Stop 01/08/20 at 17:34; Status DC Sodium Chloride 50 ml @ ud STK-MED ONCE .ROUTE ; Start 01/08/20 at 16:43; Stop 01/08/20 at 16:38; Status DC Iopamidol 74,000 mg STK-MED ONCE INJ ; Start 01/08/20 at 16:43; Stop 01/08/20 at 16:38; Status DC Ondansetron HCl 4 mg NOW STAT IV Last administered on 01/08/20at 17:10; Admin Dose 4 MG; Start 01/08/20 at 16:54; Stop 01/08/20 at 16:58; Status DC Ondansetron HCl 4 mg STK-MED ONCE .ROUTE ; Start 01/08/20 at 17:09; Stop 01/08/20 at 17:05; Status DC Sodium Chloride 500 ml @ ud STK-MED ONCE .ROUTE ; Start 01/08/20 at 17:10; Stop 01/08/20 at 17:05; Status DC Piperacillin Sod/ Tazobactam Sod 50 ml @ 100 mls/hr ONCE STAT IV ; Start 01/08/20 at 18:21; Stop 01/08/20 at 18:50 BRITNI RUIZ Jan 08, 2020 18:59
[2020-01-08] MEDS ORDERED: SODIUM CHLORIDE 0.9% 1000ML 1,000 ML IV STA (19:34)
--- NOTE | 2020-01-08 20:10 | NUR ---
{null, INITIAL CALL TO [facility] MADE AT 1910, INFO TAKEN FOR TRANSFER TO [facility], WHEN CALLED BACK TO ASK ETA FOR AMBULANCE [facility] SHE BAGAN TO EXPLAIN THAT THERE WERE SEVERAL TRANSFERS PENDING OUT OF THE MAIN ER AT [facility], STATED THAT THEY ONLY HAD ONE AMBULANCE AVAILABLE, WHEN ASKED IF SHE HAS EVEN DISPATCHED MY STAINED GLASS JOINER SHE PROCEDED TO TRY AND EXPLAN THAT SHE HAD TO CALL 3 OTHER AMBULANCES FROM AROUND THE [facility] TO TRY TO ACCOMMODATE THE DEMAND, AGAIN I ASKED FOR A YES OR NO QUESTION, HAD MY CALL REQUEST FOR TRANSPORT BEEN DISPATCHED? SHE SAID SHE COULD TRY TO SEE IF ANY OF THESE 3 AMBULANCES COULD BE REROUTED TO MY CALL, (BASICALLY ANSWERING MY QUESTION WITHOUT ANSWERING IT) SHE THOUGHT I WAS BELITTLING HER AND STATED THAT I WAS NOT ALLOWING THEM TO EXPLAIN, I TOLD HER THERE WAS NO NEED TO EXPLAIN ANYTHING AND SHE AGAIN FELT I WAS BEEN ARGUMENTITIVE WHEN I WAS TRYING TO EXPLAIN WHY I THOUGHT IT WAS WRONG OF HER TRYING TO EXPLAIN THERE SHORTCOMINGS INSTEAD OF ANSWERING A SIMPLE YES OR NO QUESTION WHEN I HAD ASKED IF MY CALL HAD BEEN DISPATCHED? CALLED [facility] AT 2017 AND THERE AMBULANCE AND CREW ARRIVED 2027. MY PATIENT WAS TRANSFERRED TO [facility] AT 2044 }
--- NOTE | 2020-01-08 20:19 | NUR ---
{null, [facility] contacted for transport to [facility]. ETA 15-20 min. }
--- NOTE | 2020-01-08 21:20 | NUR ---
{null, [facility] ARRIVED TO [facility] AT 2104 STATING THAT THEY WERE ORIGIANLLY GOING TO MAIN [facility] BUT THAT AT 2045 THEY WERE REROUTED HERE FOR MY PATIENT, NOTIFIED THEM THAT I HAD CANCELLED CALL AND THAT MY PATIENT HAD LEFT APPROX 30 MINUTES PRIOR TO THEIR ARRIVAL, ALSO INFORMED THEM THAT THEY SHOULD PROBABLY RETURN TO MAIN [facility] THEY STILL HAD MULTIPLE TRANSFERS PENDING, 2119 RECVD CALL FROM WAVE GUIDE ASSEMBLER OF [facility] WANTING TO INQUIRE WHY I HAD REQUESTED TO SPEAK TO HIM, I EXPLAINED PRIOR SITUATION AND HOW DAVY ASKED MULTIPLE TIMES TO BE GIVEN AN ETA BC USUALLY IF ITS MORE THAN 90 MINUTES, I USUALLY HAVE TO MAKE ARRANGMENTS WITH OTHER EMS COMPANIES BC WE ARE A FSER AND ONLY ONE NURSE DIFFICULT TO HANDLE CRITICAL PATIENTS WHILE ATTEMPTING TO SEE THE OTHER PATIENTS IN OUR FACILITY, HE ASKED WHY I DISPATCHED THEIR AMBULANCE IF I HAD SUCH A CRITICAL PATIENT HERE? I INFORMED HIM THAT PATIENT HAD LEFT APPROX 30 MIN PRIOR TO THE ARRIVAL OF HIS CREW. }
== END 2020-01-08 20:43 | disposition other institution (70) ==
LOC: FSED 15:55
DX: R10.13 Epigastric pain (principal); R10.30 Lower abdominal pain, unspecified; R11.0 Nausea; K57.20 Diverticulitis of large intestine with perforation and abscess without bleeding
CPT/HCPCS: 36415; 71046; 74177; 80053; 80076; 81003; 82553; 83880; 84484; 85025; 93005; 96374; 99284; J2405; J2543; J7030; J7040; Q9967

== ENCOUNTER 2020-06-08 09:59 | Emergency (ER) | payer MEDICARE ==
[~2020-06-08] VITALS: Ht 170.2 cm; Wt 84.0 kg
[2020-06-08] MEDS ORDERED: ONDANSETRON HCL 4 MG ORAL DISINTEGRATING TAB PO NR (10:30)
[2020-06-08] MEDS ORDERED: PROMETHAZINE HCL (IM) 25 MG/ML VIAL IM ONE ×2 (10:30→11:14)
--- NOTE | 2020-06-08 11:04 | NUR ---
urine culture collected and sent to the lab
[2020-06-08] MEDS ORDERED: PHENERGAN SUPP25 MG PR (11:06)
[2020-06-08] MEDS ORDERED: NITROFURANTOIN100 MG PO (11:06)
[2020-06-08] MEDS ORDERED: ONDANSETRON ODT8 MG PO (11:06)
--- NOTE | 2020-06-08 11:08 | Emergency Department Note ---
History of Present Illnes History of Present Illness Chief Complaint: nausea s/p taking tramadol to control chronic abdominal pain History of Present Illness This is a 69 year old female. h/o chronic abdominal pain since s/p cholecystectomy in the Historian: Patient Arrival Mode: Car History limited by: condition of the patient (normal) Forest Ecologist Required: No Onset (how long ago): hour(s) (5) Location: see above Quality: see above Radiation: Reports non-radiation Severity: moderate Onset quality: gradual Duration (how long): day(s) (2) Timing of current episode: intermittent Progression: worsening Chronicity: new Context: Denies recent illness, Denies recent surgery, Denies recent immobilization, Denies recent travel, Denies trauma/injury, Denies new medications, Denies hx of DVT/PE, Denies non-compliance w/ medications Relieving factors: none Exacerbating factors: none Associated symptoms: Reports nausea/vomiting Treatments prior to arrival: none Past Medical/Family History Physician Review I have reviewed the patient's past medical and family history. Any updates have been documented here. Past Medical History Recent Fever: No Clinical Suspicion of Infectio: No New/Unexplained Change in Ment: No Past Medical History: Hypertension Other Medical History: Cholangitis Past Surgical History: Cholecysctectomy Other Surgery: Liver surgery after it was punctured during cholecystectomy Social History Smoking Cessation: Never Smoker Counseling Performed: No Alcohol Use: None Any Illegal Drug Use: No Physically hurt or threatened: No Other Last Tetanus: UTD Any Pre-Existing Lines (PICC,: No Review of Systems Review of Systems Constitutional: Reports no symptoms EENTM: Reports no symptoms Cardiovascular: Reports no symptoms Respiratory: Reports no symptoms Gastrointestinal: Reports as per HPI Genitourinary: Reports no symptoms Musculoskeletal: Reports no symptoms Integumentary: Reports no symptoms Neurological: Reports no symptoms Psychological: Reports no symptoms Endocrine: Reports no symptoms Hematological/Lymphatic: Reports no symptoms Review of other systems: All other systems negative Physical Exam Related Data Allergies: Coded Allergies: tramadol (Verified Allergy, Intermediate, 06/08/20) codeine (Verified Allergy, Unknown, 06/16/19) hydrocodone (Verified Adverse Reaction, Severe, NAUSEA, 06/08/20) pt can take tylenol Triage Vital Signs Vital Signs Date Time Temp Pulse Resp B/P (MAP) Pulse Ox O2 Delivery O2 Flow Rate FiO2 06/08/20 10:04 97.9 81 18 124/63 97 Room Air Vital signs reviewed: Yes Physical Exam CONSTITUTIONAL Constitutional: Present well-developed, Present well-nourished HENT HENT: Present normocephalic, Present atraumatic, Present oropharynx clear/moist, Present nose normal HENT L/R: Present left ext ear normal, Present right ext ear normal EYES Eyes: Reports PERRL, Reports conjunctivae normal NECK Neck: Present ROM normal, Present supple PULMONARY Pulmonary: Present effort normal, Present breath sounds normal CARDIOVASCULAR Cardiovascular: Present regular rhythm, Present heart sounds normal, Present capillary refill normal, Present normal rate GASTROINTESTINAL Abdominal: Present soft, Present nontender, Present bowel sounds normal GENITOURINARY Genitourinary: Present exam deferred SKIN Skin: Present warm, Present dry MUSCULOSKELETAL Musculoskeletal: Present ROM normal NEUROLOGICAL Neurological: Present alert, Present oriented x 3, Present no gross motor or sensory deficits PSYCHOLOGICAL Psychological: Present mood/affect normal, Present judgement normal Results Laboratory Lab results reviewed: Yes Laboratory comments ua=+nitrites Assessment & Plan Medical Decision Making MDM chronic nausea, uti Assessment & Plan Final Impression: (1) Nausea (2) UTI (urinary tract infection) Depart Disposition: HOME, SELF-CARE Last Vital Signs Date Time Temp Pulse Resp B/P (MAP) Pulse Ox O2 Delivery O2 Flow Rate FiO2 06/08/20 10:04 97.9 81 18 124/63 97 Room Air Home Meds Active Scripts Nitrofurantoin Macrocrystal (NITROFURANTOIN) 100 Mg Capsule, 100 MG PO Q12H, #20 TAB Prov:BRITNI RUIZ 06/08/20 Promethazine Hcl* (PHENERGAN SUPP*) 25 Mg Supp, 25 MG KS Q4HR PRN for NAUSEA AND VOMITING, #30 SUPP.RECT take after zofran to control nausea/vomiting if need be Prov:BRITNI RUIZ 06/08/20 Ondansetron (ONDANSETRON ODT) 8 Mg Tab.rapdis, 4 MG PO Q4HR PRN for NAUSEA AND VOMITING, #30 TAB Prov:BRITNI RUIZ 06/08/20 Reported Medications Omeprazole (OMEPRAZOLE) 40 Mg Capsule.dr, 40 MG PO DAILY 06/17/19 Enalapril Maleate (ENALAPRIL MALEATE) 20 Mg Tablet, 20 MG PO BID 06/17/19 Medications in the ED Promethazine HCl 25 mg ONCE ONCE IM ; Start 06/08/20 at 10:30; Stop 06/08/20 at 10:31 Ondansetron HCl 4 mg ONCE PO ; Start 06/08/20 at 10:30; Stop 06/08/20 at 11:59 BRITNI RUIZ Jun 08, 2020 11:08
[2020-06-08] MEDS ORDERED: ONDANSETRON HCL 4 MG ORAL DISINTEGRATING TAB ONE (11:13)
--- OUTSIDE RECORDS SUMMARY | 2020-06-08 11:16 | XMS REPORT | Clinical Summary ---
Author Author [facility] Address Unknown Phone Unavailable Care Team Providers Care License Examiner Name Role Phone Reg Liriano DO PCP Allergies No Known Allergies Medications End Date Status Medication Sig Dispensed Refills Start Date Active enalapril (VASOTEC) 20 MG Twice A Day 0 tablet Active esomeprazole (NEXIUM) 20 Take 20 mg by 0 04/05 MG capsule mouth. 3 01/21/2020 cyclobenzaprine Take 1 tablet 30 tablet 0 01/11/20 2 (FLEXERIL) 10 MG tablet (10 mg total) 0 by mouth 3 (three) times daily as needed for Muscle spasms for up to 10 days. 01/18/2020 ciprofloxacin HCl (CIPRO) Take 1 tablet 14 tablet 0 500 MG tablet (500 mg 0 total) by mouth 2 (two) times daily for 7 days. 01/21/2020 loperamide (IMODIUM) 2 mg Take 1 30 capsule 0 capsule capsule (2 mg 0 total) by mouth 4 (four) times daily as needed for Diarrhea for up to 10 days. Active Problems Problem Noted Date Acute diverticulitis 01/09/2020 Encounters Care Team Description Date Type Specialty Pilar Sesay MD Gadicherla, Sonal Muralinath, MD Acute diverticulitis; History of common bile duct surgery 01/08/2020 [facility] General Internal Me dicine - Encounter 01/11/2020 after 06/08/2019 Social History Date Tobacco Use Types Packs/Day Years Used Never Assessed Sex Assigned at Date Recorded Not on file Last Filed Vital Signs Reading Time Taken Comments Vital Sign 143/73 01/11/2020 12:00 PM CDT Blood Pressure 77 01/11/2020 12:00 PM CDT Pulse 35.8 C (96.4 F) 01/11/2020 12:00 PM CDT Temperature 18 01/11/2020 12:00 PM CDT Respiratory Rate 94% 01/11/2020 12:00 PM CDT Oxygen Saturation - - Inhaled Oxygen Concentration 76.2 kg (168 lb) 01/08/2020 11:00 PM CDT Weight 167.6 cm (5' 6") 01/08/2020 11:00 PM CDT Height 27.12 01/08/2020 11:00 PM CDT Body Mass Index Plan of Treatment Health Maintenance Due Date Last Done Comments BREAST CANCER SCREENING 1950 COLON CANCER SCREENING 1950 COLONOSCOPY PNEUMOCOCCAL 65+ YRS (1 2013 of 1 - [id number]) Medicare IPPE (WELCOME TO 07/26/2019 MEDICARE) INFLUENZA VACCINE (#1) 2020 Procedures Comments Procedure Name Priority Date/Time Associated Diag nosis REPORT OF PROCEDURE - 01/12/2020 ENDOSCOPY SCAN 2:20 PM CDT CBC W/PLT COUNT & AUTO Routine 01/11/2020 DIFFERENTIAL 5:43 AM CDT BASIC METABOLIC PANEL (7) Routine 01/11/2020 5:43 AM CDT CBC W/PLT COUNT & AUTO Routine 01/11/2020 DIFFERENTIAL 5:43 AM CDT CBC W/PLT COUNT & AUTO Routine 01/10/2020 DIFFERENTIAL 5:37 AM CDT BASIC METABOLIC PANEL (7) Routine 01/10/2020 5:37 AM CDT CBC W/PLT COUNT & AUTO Routine 01/10/2020 DIFFERENTIAL 5:37 AM CDT CBC W/PLT COUNT & AUTO Routine 01/09/2020 DIFFERENTIAL 5:36 AM CDT BASIC METABOLIC PANEL (7) Routine 01/09/2020 5:36 AM CDT CBC W/PLT COUNT & AUTO Routine 01/09/2020 DIFFERENTIAL 5:36 AM CDT after 06/08/2019 Results * EKG-SCANNED (01/12/2020 2:20 PM CDT) Narrative Performed At This result has an attachment that is n ot available. * CBC with platelet count + automated diff (01/11/2020 5:43 AM CDT) Only the most recent of 3 results within the time period is included. WBC 5.7 3.5 - 10.5 K/L [facility] RBC 4.01 3.93 - 5.22 M/L [facility] Hemoglobin 10.8 (L) 11.2 - 15.7 GM/DL [facility] Hematocrit 35.0 34.1 - 44.9 % [facility] MCV 87.3 79.4 - 94.8 fL [facility] MCH 26.9 25.6 - 32.2 pg [facility] MCHC 30.9 (L) 32.2 - 35.5 GM/DL [facility] RDW 12.6 11.7 - 14.4 % [facility] Platelets 301 150 - 450 K/CU MM [facility] MPV 10.2 9.4 - 12.3 fL [facility] nRBC 0 0 - 0 /100 WBC [facility] % Neutros 64 % [facility] % Lymphs 20 % [facility] % Monos 11 % [facility] % Eos 4 % [facility] % Baso 1 % [facility] # Neutros 3.68 1.56 - 6.13 K/L [facility] # Lymphs 1.12 (L) 1.18 - 3.74 K/L [facility] # Monos 0.60 (H) 0.24 - 0.36 K/L [facility] # Eos 0.22 0.04 - 0.36 K/L [facility] # Baso 0.07 0.01 - 0.08 K/L [facility] Immature 1 0 - 1 % [facility] Specimen Blood Performing Organization Address City/[facility]/Zipcode Ph one Number [facility] [address] [place], [place] [address] [facility] * Basic Metabolic Panel (01/11/2020 5:43 AM CDT) Only the most recent of 3 results within the time period is included. Sodium 142 136 - 145 meq/L [facility] Potassium 3.7 3.5 - 5.1 meq/L [facility] Chloride 105 98 - 107 meq/L [facility] CO2 27 22 - 29 meq/L [facility] BUN 7 7 - 21 mg/dL [facility] Creatinine 0.83 0.57 - 1.25 mg/dL [facility] Glucose 89 70 - 105 mg/dL [facility] Calcium 8.8 8.4 - 10.2 mg/dL [facility] EGFR 68Comment: ESTIMATED GFR IS mL/min/1.73 sq m [facility] NOT ACCURATE CREATININE [facility] CLEARANCE IN PREDICTING MEDICAL CENTER GLOMERULAR FILTRATION RATE. ESTIMATED GFR IS NOT APPLICABLE FOR DIALYSIS PATIENTS. Specimen Blood Narrative Performed At Library Sales Consultant ID - YOLANDA Marsh [facility] Performing Organization Address City/State/Zipcode Ph one Number [facility] [address], [place] [address] [facility] after 06/08/2019 Insurance Type Payer Benefit Subscriber ID Effective Phone Address Plan / Dates Group [facility] - [employer]/MEDIC [id number] 2019-P MEDICARE MGD CARE ARE resent COMPLETE
--- OUTSIDE RECORDS SUMMARY | 2020-06-08 11:17 | XMS REPORT | Continuity of Care Document ---
Author Author [facility] t Organization [facility] Address [facility] [place] [address] Phone Unavailable Care Team Providers Care Java Technical Manager Name Role Phone KAUR DO LEWIS PCP Shama SEO, Kota Quezada Attphys [phone] Andrzej Bean MDal Attphys [phone] KOTA ALSTON Attphys Unavailable Vahe RUIZ Attphys Unavailable SANDVERO, AMBSCOTTIE Attphys Unavailable YUSRA SCHULTZ Attphys Unavailable BLAIRE, ANDRZEJ CRISTINA Admphys Unavailable YUSRA SCHULTZ Admphys Unavailable Payers Payer Name Policy Type Policy Number Effective Date Expiration Date [facility] - MEDICARE MGD CAREAAR P/MEDICARE [id number] 2019-Present [id number] 2019 00:00:00 [facility] Aarp Medicare Complete [id number] 2018 00:00:00 2018 00:00:00 [facility] Problems Condition Name Condition Details Condition Category Status Onset Date Resolution Date Last Treatment Date Treating Clinician Comments Source Acute diverticulitis Acute diverticulitis Disease Active 00:00:00 [facility] Pyelonephritis Pyelonephritis Problem Active [facility] Diverticulitis of large intestine with perforation Problem Active [facility] Allergies, Adverse Reactions, Alerts Allergy Name Allergy Type Status Severity Reaction(s) Onset Date Inacti ve Date Treating Clinician Comments Source Hydrocodone Propensity to adverse reactions Active Severe DORINDA SEA 2019-12-21 00:00:00 [facility] Codeine Allergy to substance Active 2019 00:00:00 [facility] Social History Social Habit Start Date Stop Date Quantity Comments Source Sex Assigned At [facility] Medications Ordered Medication Name Filled Medication Name Start Date Stop Da te Current Medication? Ordering Clinician Indication Dosage Frequency Signature (SIG) Comments Components Source enalapril (VASOTEC) 20 MG tablet 2020-01-11 15:40:04 Yes Twice A Day [facility] cyclobenzaprine (FLEXERIL) 10 MG tablet 00:00:00 2020-01-21 23:59:00 No 10mg Take 1 tablet (10 mg total) by mouth 3 (three) times daily as needed for Muscle spasms for up to 10 days. [facility] loperamide (IMODIUM) 2 mg capsule 2020-01-11 00:00:00 2019 23:59:00 No 2mg Take 1 capsule ( 2 mg total) by mouth 4 (four) times daily as needed for Diarrhea for up to 10 days. [facility] ciprofloxacin HCl (CIPRO) 500 MG tablet 00:00:00 2020-01-18 23:59:00 No 500mg Q.5D Take 1 tablet (500 mg total) by mouth 2 (two) times daily for 7 days. [facility] Meropenem (Merrem) 1 Gm INJ Meropenem (Merrem) 1 Gm INJ 04:41:00 2019-12-21 00:00:00 No 1 Every 12 Hours [facility] esomeprazole (NEXIUM) 20 MG capsule 2013-04-05 00:00:00 Yes 20mg Take 20 mg by mouth. [facility] Enalapril Maleate Enalapril Maleate Yes 20 Twic e A Day [facility] Omeprazole Omeprazole Yes 40 Daily [facility] Acetaminophen (Tylenol) 325 Mg CAPSULE Acetaminophen (Tylenol) 3 25 Mg CAPSULE 2020-01-08 00:00:00 No 650 Daily [facility] Gabapentin Gabapentin 2020-01-08 00:00:00 No 100 As Needed [facility] Nitrofurantoin Macrocrystal (Nitrofurantoin) 100 Mg CA PSULE Nitrofurantoin Macrocrystal (Nitrofurantoin) 100 Mg CAPSULE 2020-01-08 00:00:00 No 100 Every 12 Hours [facility] Vital Signs Vital Name Observation Time Observation Value Comments Source Systolic blood pressure 2020-01-11 12:00:00 143 mm[Hg] [facility] Diastolic blood pressure 2020-01-11 12:00:00 73 mm[Hg] [facility] Heart rate 2020-01-11 12:00:00 77 /min [facility] Body temperature 2020-01-11 12:00:00 35.78 Linda [facility] Respiratory rate 2020-01-11 12:00:00 18 /min [facility] Oxygen saturation in Arterial blood by Pulse oximetry 01-10 12:00:00 94 [facility] height 2020-01-08 23:00:00 167.6 cm [facility] Body weight 2020-01-08 23:00:00 76.204 kg [facility] BMI 2020-01-08 23:00:00 27.12 kg/m2 [facility] Weight 2020-01-08 16:00:00 186.50 [lb_av] [facility] BMI (Body Mass Index) 2020-01-08 16:00:00 30.1 kg/m2 [facility] Body Temperature 2019-12-27 09:42:00 98.3 [degF] [facility] Procedures Procedure Date / Time Performed Performing Clinician [facility] REPORT OF PROCEDURE - ENDOSCOPY SCAN 2020-01-12 14:20:49 Pro vider, Default Scanning [facility] BASIC METABOLIC PANEL (7) 2020-01-11 05:43:00 Cynthia, Romulo Dolores [facility] CBC W/PLT COUNT & AUTO DIFFERENTIAL 2020-01-11 05:43:00 Romulo Marie [facility] BASIC METABOLIC PANEL (7) 2020-01-10 05:37:00 Romulo Marie [facility] CBC W/PLT COUNT & AUTO DIFFERENTIAL 2020-01-10 05:37:00 Romulo Marie [facility] BASIC METABOLIC PANEL (7) 2020-01-09 05:36:00 Romulo Marie [facility] CBC W/PLT COUNT & AUTO DIFFERENTIAL 2020-01-09 05:36:00 CynthiaRomulo [facility] Computed tomography of abdomen and pelvis with contrast 2018 00:00:00 OTTO LANDEROS [facility] Magnetic resonance cholangiopancreatography (MRCP) wit hout then with contrast 2019-06-19 00:00:[address] [facility]ION OF INFUSION DEV INTO SUP VENA CAVA, PERC APPROACH 2019-06-19 00:00:00 [facility] ULTRASONOGRAPHY OF SUPERIOR VENA CAVA, GUIDANCE 2019-06-19 00:00 :[address] [facility] [address] of abdomen and pelvis without contrast 2019 00:00:00 [facility] Plan of Care Planned Activity Planned Date Details Comments Source Future Scheduled Test 2020-03-26 00:00:00 INFLUENZA VACCINE (#1) [code = INFLUENZA VACCINE (#1)] [facility] Future Scheduled Test 2019-07-26 00:00:00 Medicare IPPE (WEL COME TO MEDICARE) [code = Medicare IPPE (WELCOME TO MEDICARE)] [facility] Future Scheduled Test 2013 00:00:00 PNEUMOCOCCAL 65+ Y RS (1 of 1 - [id number]) [code = PNEUMOCOCCAL 65+ YRS (1 of 1 - [id number] PCV13)] [facility] Future Scheduled Test 1950 00:00:00 Screening for ling gnant neoplasm of breast (procedure) [code = 533327440] [facility] Future Scheduled Test 1950 00:00:00 Screening for ling gnant neoplasm of colon (procedure) [code = 197807488] [facility] Encounters Start Date/Time End Date/Time Encounter Type Admission Type [facility] Care Department Encounter ID Source 2020-01-08 15:55:00 2020-01-08 20:43:00 Departed Emergency Room 1 BRITNI RUIZ [facility] [id number] [facility] 2019-12-27 06:33:00 2019-12-27 06:33:00 Registered Surgical Day Care [facility] [id number] [facility] 2019-06-30 17:56:00 2019-06-30 22:18:00 Departed Emergency Room 1 PATRIA HOYOS [facility] [id number] [facility] 2019-06-19 09:46:00 2019-06-20 17:05:00 Discharged Inpatient 1 YUSRA SCHULTZ [facility] [id number] [facility] 2019-05-04 10:51:00 2019-05-04 13:42:00 Departed Emergency Room [facility] [id number] [facility] Results Test Description Test Time Test Comments Results Result Comments Source Basic Metabolic Panel 2020-01-11 07:04:00 Test Item Sodium (test code = 2951-2) 142 meq/L 136-145 Potassium (test code = 2823-3) 3.7 meq/L 3.5-5.1 Chloride (test code = 2075-0) 105 meq/L 98-107 CO2 (test code = 2027-9) 27 meq/L 22-29 BUN (test code = 3094-0) 7 mg/dL 7-21 Creatinine (test code = 2160-0) 0.83 mg/dL 0.57-1.25 Glucose (test code = 2345-7) 89 mg/dL 70-105 Calcium (test code = 05500-6) 8.8 mg/dL 8.4-10.2 EGFR (test code = 32244-8) 68 mL/min/1.73 sq m ESTIMATED GFR IS NOT ACCURATE CREATININE CLEARANCE IN PREDICTING GLOMERULAR FILTRATION RATE. ESTIMATED GFR IS NOT APPLICABLE FOR DIALYSIS PATIENTS. NA (test code = NA) Evaporator Repairer ID - YOLANDA [facility] METABOLIC [id number] 07:04:00* Test Item Value Reference Range Interpretation Comments SODIUM (BEAKER) (test code = 381) 142 meq/L 136-145 POTASSIUM (BEAKER) (test code = 379) 3.7 meq/L 3.5-5.1 CHLORIDE (BEAKER) (test code = 382) 105 meq/L 98-107 CO2 (BEAKER) (test code = 355) 27 meq/L 22-29 BLOOD UREA NITROGEN (BEAKER) (test code = 354) 7 mg/dL 7-21 CREATININE (BEAKER) (test code = 358) 0.83 mg/dL 0.57-1.25 GLUCOSE RANDOM (BEAKER) (test code = 652) 89 mg/dL 70-105 CALCIUM (BEAKER) (test code = 697) 8.8 mg/dL 8.4-10.2 EGFR (BEAKER) (test code = 1092) 68 mL/min/1.73 sq m ESTIMATED GFR IS NOT ACCURATE CREATININE CLEARANCE IN PREDICTING GLOMERULAR FILTRATION RATE. ESTIMATED GFR IS NOT APPLICABLE FOR DIALYSIS PATIENTS. Evaporator Repairer ID - JUL CCBC with platelet count + automated [id number] 06:23:00* Test Item Value Reference Range Interpretation Comments WBC (test code = 6690-2) 5.7 3.5- 10.5 K/L RBC (test code = 789-8) 4.01 3.93- 5.22 M/L MCHC (test code = 786-4) 30.9 32.2- 35.5 GM/DL L Hematocrit (test code = 4544-3) 35.0 % 34.1-44.9 MCV (test code = 787-2) 87.3 fL 79.4-94.8 MCH (test code = 785-6) 26.9 pg 25.6-32.2 RDW (test code = 788-0) 12.6 % 11.7-14.4 Platelets (test code = 777-3) 301 150- 450 K/CU MM MPV (test code = 61229-7) 10.2 fL 9.4-12.3 nRBC (test code = 413) 0 0- 0 /100 WBC % Neutros (test code = 429) 64 % % Lymphs (test code = 430) 20 % % Monos (test code = 431) 11 % % Eos (test code = 432) 4 % % Baso (test code = 437) 1 % # Neutros (test code = 670) 3.68 1.56- 6.13 K/L # Lymphs (test code = 414) 1.12 1.18- 3.74 K/L L # Monos (test code = 415) 0.60 0.24- 0.36 K/L H # Eos (test code = 416) 0.22 0.04- 0.36 K/L # Baso (test code = 417) 0.07 0.01- 0.08 K/L Immature Granulocytes-Relative (test code = 2801) 1 % 0-1 Lab Interpretation (test code = 46025-9) Abnormal [facility] W/PLT COUNT & AUTO [id number] 06:23:00* Test Item Value Reference Range Interpretation Comments WHITE BLOOD CELL COUNT (BEAKER) (test code = 775) 5.7 K/ L 3.5- 10.5 RED BLOOD CELL COUNT (BEAKER) (test code = 761) 4.01 M/ L 3.93-5 .22 HEMOGLOBIN (BEAKER) (test code = 410) 10.8 GM/DL 11.2-15.7 L HEMATOCRIT (BEAKER) (test code = 411) 35.0 % 34.1-44.9 MEAN CORPUSCULAR VOLUME (BEAKER) (test code = 753) 87.3 fL 79. 4-94.8 MEAN CORPUSCULAR HEMOGLOBIN (BEAKER) (test code = 751) 26.9 pg 25.6-32.2 MEAN CORPUSCULAR HEMOGLOBIN CONC (BEAKER) (test code = 752) 30.9 GM/DL 32.2-35.5 L RED CELL DISTRIBUTION WIDTH (BEAKER) (test code = 412) 12.6 % 11.7-14.4 PLATELET COUNT (BEAKER) (test code = 756) 301 K/CU MM 150-450 MEAN PLATELET VOLUME (BEAKER) (test code = 754) 10.2 fL 9.4-12 .3 NUCLEATED RED BLOOD CELLS (BEAKER) (test code = 413) 0 /100 WBC 0 -0 NEUTROPHILS RELATIVE PERCENT (BEAKER) (test code = 429) 64 % LYMPHOCYTES RELATIVE PERCENT (BEAKER) (test code = 430) 20 % MONOCYTES RELATIVE PERCENT (BEAKER) (test code = 431) 11 % EOSINOPHILS RELATIVE PERCENT (BEAKER) (test code = 432) 4 % BASOPHILS RELATIVE PERCENT (BEAKER) (test code = 437) 1 % NEUTROPHILS ABSOLUTE COUNT (BEAKER) (test code = 670) 3.68 K/ L 1.56-6.13 LYMPHOCYTES ABSOLUTE COUNT (BEAKER) (test code = 414) 1.12 K/ L 1.18-3.74 L MONOCYTES ABSOLUTE COUNT (BEAKER) (test code = 415) 0.60 K/ L 0. 24-0.36 H EOSINOPHILS ABSOLUTE COUNT (BEAKER) (test code = 416) 0.22 K/ L 0.04-0.36 BASOPHILS ABSOLUTE COUNT (BEAKER) (test code = 417) 0.07 K/ L 0. 01-0.08 IMMATURE GRANULOCYTES-RELATIVE PERCENT (BEAKER) (test code = 2801) 1 % 0-1 BASIC METABOLIC [id number] 06:18:00* Test Item Value Reference Range Interpretation Comments SODIUM (BEAKER) (test code = 381) 139 meq/L 136-145 POTASSIUM (BEAKER) (test code = 379) 3.8 meq/L 3.5-5.1 CHLORIDE (BEAKER) (test code = 382) 105 meq/L 98-107 CO2 (BEAKER) (test code = 355) 28 meq/L 22-29 BLOOD UREA NITROGEN (BEAKER) (test code = 354) 9 mg/dL 7-21 CREATININE (BEAKER) (test code = 358) 0.80 mg/dL 0.57-1.25 GLUCOSE RANDOM (BEAKER) (test code = 652) 75 mg/dL 70-105 CALCIUM (BEAKER) (test code = 697) 8.6 mg/dL 8.4-10.2 EGFR (BEAKER) (test code = 1092) 71 mL/min/1.73 sq m ESTIMATED GFR IS NOT ACCURATE CREATININE CLEARANCE IN PREDICTING GLOMERULAR FILTRATION RATE. ESTIMATED GFR IS NOT APPLICABLE FOR DIALYSIS PATIENTS. Evaporator Repairer ID - SHAWNA LCBC W/PLT COUNT & AUTO [id number] 05:55:00* Test Item Value Reference Range Interpretation Comments WHITE BLOOD CELL COUNT (BEAKER) (test code = 775) 5.3 K/ L 3.5- 10.5 RED BLOOD CELL COUNT (BEAKER) (test code = 761) 4.04 M/ L 3.93-5 .22 HEMOGLOBIN (BEAKER) (test code = 410) 10.8 GM/DL 11.2-15.7 L HEMATOCRIT (BEAKER) (test code = 411) 35.8 % 34.1-44.9 MEAN CORPUSCULAR VOLUME (BEAKER) (test code = 753) 88.6 fL 79. 4-94.8 MEAN CORPUSCULAR HEMOGLOBIN (BEAKER) (test code = 751) 26.7 pg 25.6-32.2 MEAN CORPUSCULAR HEMOGLOBIN CONC (BEAKER) (test code = 752) 30.2 GM/DL 32.2-35.5 L RED CELL DISTRIBUTION WIDTH (BEAKER) (test code = 412) 12.8 % 11.7-14.4 PLATELET COUNT (BEAKER) (test code = 756) 241 K/CU MM 150-450 MEAN PLATELET VOLUME (BEAKER) (test code = 754) 9.8 fL 9.4-12 .3 NUCLEATED RED BLOOD CELLS (BEAKER) (test code = 413) 0 /100 WBC 0 -0 NEUTROPHILS RELATIVE PERCENT (BEAKER) (test code = 429) 66 % LYMPHOCYTES RELATIVE PERCENT (BEAKER) (test code = 430) 19 % MONOCYTES RELATIVE PERCENT (BEAKER) (test code = 431) 10 % EOSINOPHILS RELATIVE PERCENT (BEAKER) (test code = 432) 4 % BASOPHILS RELATIVE PERCENT (BEAKER) (test code = 437) 1 % NEUTROPHILS ABSOLUTE COUNT (BEAKER) (test code = 670) 3.49 K/ L 1.56-6.13 LYMPHOCYTES ABSOLUTE COUNT (BEAKER) (test code = 414) 1.00 K/ L 1.18-3.74 L MONOCYTES ABSOLUTE COUNT (BEAKER) (test code = 415) 0.52 K/ L 0. 24-0.36 H EOSINOPHILS ABSOLUTE COUNT (BEAKER) (test code = 416) 0.22 K/ L 0.04-0.36 BASOPHILS ABSOLUTE COUNT (BEAKER) (test code = 417) 0.07 K/ L 0. 01-0.08 IMMATURE GRANULOCYTES-RELATIVE PERCENT (BEAKER) (test code = 2801) 1 % 0-1 BASIC METABOLIC [id number] 06:19:00* Test Item Value Reference Range Interpretation Comments SODIUM (BEAKER) (test code = 381) 139 meq/L 136-145 POTASSIUM (BEAKER) (test code = 379) 3.7 meq/L 3.5-5.1 CHLORIDE (BEAKER) (test code = 382) 104 meq/L 98-107 CO2 (BEAKER) (test code = 355) 27 meq/L 22-29 BLOOD UREA NITROGEN (BEAKER) (test code = 354) 12 mg/dL 7-21 CREATININE (BEAKER) (test code = 358) 0.80 mg/dL 0.57-1.25 GLUCOSE RANDOM (BEAKER) (test code = 652) 89 mg/dL 70-105 CALCIUM (BEAKER) (test code = 697) 8.8 mg/dL 8.4-10.2 EGFR (BEAKER) (test code = 1092) 71 mL/min/1.73 sq m ESTIMATED GFR IS NOT ACCURATE CREATININE CLEARANCE IN PREDICTING GLOMERULAR FILTRATION RATE. ESTIMATED GFR IS NOT APPLICABLE FOR DIALYSIS PATIENTS. Evaporator Repairer ID - GIRISH WCBC W/PLT COUNT & AUTO [id number] 05:57:00* Test Item Value Reference Range Interpretation Comments WHITE BLOOD CELL COUNT (BEAKER) (test code = 775) 7.9 K/ L 3.5- 10.5 RED BLOOD CELL COUNT (BEAKER) (test code = 761) 4.08 M/ L 3.93-5 .22 HEMOGLOBIN (BEAKER) (test code = 410) 11.0 GM/DL 11.2-15.7 L HEMATOCRIT (BEAKER) (test code = 411) 36.3 % 34.1-44.9 MEAN CORPUSCULAR VOLUME (BEAKER) (test code = 753) 89.0 fL 79. 4-94.8 MEAN CORPUSCULAR HEMOGLOBIN (BEAKER) (test code = 751) 27.0 pg 25.6-32.2 MEAN CORPUSCULAR HEMOGLOBIN CONC (BEAKER) (test code = 752) 30.3 GM/DL 32.2-35.5 L RED CELL DISTRIBUTION WIDTH (BEAKER) (test code = 412) 13.2 % 11.7-14.4 PLATELET COUNT (BEAKER) (test code = 756) 249 K/CU MM 150-450 MEAN PLATELET VOLUME (BEAKER) (test code = 754) 10.0 fL 9.4-12 .3 NUCLEATED RED BLOOD CELLS (BEAKER) (test code = 413) 0 /100 WBC 0 -0 NEUTROPHILS RELATIVE PERCENT (BEAKER) (test code = 429) 72 % LYMPHOCYTES RELATIVE PERCENT (BEAKER) (test code = 430) 15 % MONOCYTES RELATIVE PERCENT (BEAKER) (test code = 431) 9 % EOSINOPHILS RELATIVE PERCENT (BEAKER) (test code = 432) 2 % BASOPHILS RELATIVE PERCENT (BEAKER) (test code = 437) 1 % NEUTROPHILS ABSOLUTE COUNT (BEAKER) (test code = 670) 5.67 K/ L 1.56-6.13 LYMPHOCYTES ABSOLUTE COUNT (BEAKER) (test code = 414) 1.21 K/ L 1.18-3.74 MONOCYTES ABSOLUTE COUNT (BEAKER) (test code = 415) 0.72 K/ L 0. 24-0.36 H EOSINOPHILS ABSOLUTE COUNT (BEAKER) (test code = 416) 0.15 K/ L 0.04-0.36 BASOPHILS ABSOLUTE COUNT (BEAKER) (test code = 417) 0.07 K/ L 0. 01-0.08 IMMATURE GRANULOCYTES-RELATIVE PERCENT (BEAKER) (test code = 2801) 1 % 0-1 CT ABD/PEL WITH [id number] 17:43:00 [place] [address] Patient Name: RAVI CARRANZA MR #: [id number] : 1950 Age/Sex: 69/F Req #: [id number] Adm Physician: Ordered by: BRITNI RUIZ Report #: [id number] Location: [facility] Room/Bed: Procedure: [id number] HOPD/CT ABD /PEL WITH CONTRAST-HOPD Exam Date: 01/08/20 Exam Ford e: 1733 REPORT STATUS: Signed EX AMINATION: CT of the abdomen and pelvis with contrast. TECHNIQUE: Spiral CT images of the abdomen and pelvis were performed from the lung bases to the lesser trochanters after the intravenous administration of 96 cc of Isovue 370 and the oral administration of water. Coronal and sagittal reformatted images were obtained. COMPARISON: CT abdomen and pelvis with contrast 06/30/2019 CLINICAL HISTORY:Abdominal pain for 3 days DISCUSSION: ABDO MEN/PELVIS: LOWER THORAX:Unremarkable. HEPATOBILIARY: No focal hepatic lesions. No intra or extrahepatic biliary ductal dilation. GALLBLADDER: Cholecystectomy clips. SPLEEN: No splenomegaly. PANCREAS: No foc al masses or ductal dilatation. ADRENALS: No adrenal nodules. KIDNEYS /URETERS: No hydronephrosis, stones, or solid mass lesions. Cortical scarring in the right kidney. PELVIC ORGANS/BLADDER: Bladder is unremarkable. Uterus is absent. No adnexal masses. PERITONEUM/RETROPERITONEUM: No free air or fluid. LYMPH NODES: No intra-abdominal, retroperitoneal, pelvic or inguinal lymphadenopathy. VESSELS: The celiac trunk,superior and inferior mesent eduarda and bilateral renal arteries are patent The portal, superior mesenteric and splenic veins are patent. GI TRACT: 6-7 cm segment of the mid sigmoid colon, which shows moderate wall thickening and moderate surrounding fat str anding (series 2, image 61), very similar to prior CT dated 06/30/2019. 1-2 m m air foci in the sigmoid mesentery (for examples series 2, image 58). No nini cent well-defined enhancing fluid collections. Rest of the bowel shows no wall thickening, dilation or obstruction. Stable postoperative changes in the prox imal small bowel. BONES AND SOFT TISSUE: No aggressive lytic or suspicious focal sclerotic lesions. No soft tissue abnormalities. IMPRESSION: 1. Findings consistent with sigmoid diverticulitis. 1-2 mm air foci in the sigmoid mesentery are consistent with a contained microperforation. No blaine pneumoperitoneum or adjacent abscess. Signed by: Renea Huerta on 01/08/2020 6:02 PM Dictated By: NAVDEEP SOTELO MD Electronically S igned By: NAVDEEP SOTELO MD on 01/08/201801 Transcribed By: DERRICK on 1801 COPY TO: BRITNI RUIZ CXR 2 VIEW - [id number] 17:42:00 [place] [address] Patient Name: RAVI CARRANZA MR #: [id number] : 1950 Age/Sex: 69/F Req #: [id number] Adm Physician: Ordered by: BRITNI RUIZ Report #: [id number] Location: [facility] Room/Bed: Procedure: [id number] HOPD/CXR 2 VIEW - HOPD Exam Date: 01/08/20 Exam Time: 1733 REPORT STATUS: Signed EXAMINATION: PA and lateral views of the chest. COMPARISON: PA chest 06/30/2019 CL INICAL HISTORY: Dehydrated, constipation DISCUSSION: Lines/tubes : None. Lungs: The lungs are well inflated and clear. There is no evidenc e of pneumonia or pulmonary edema. Pleura: There is no pleural effusion or pneumothorax. Heart and mediastinum: Cardiomediastinal silhouette is un remarkable. Pulmonary vasculature is normal. Bones and soft tissues: No acute bony abnormalities. Degenerative changes in the thoracic spine IMPRESSION: No acute cardiopulmonary abnormalities. Signed b y: Dr. Navdeep Sotelo M.D. on 01/08/2020 5:42 PM Dictated By: NAVDEEP CHOW MD 41 Transcr ibed By: DERRICK on 01/08/201741 COPY TO: BRITNI RUIZ Troponin I measurement by highly sensitive enzyme [id number] 17:03:00 * Test Item Value Reference Range Interpretation Comments Troponin I (test code = 98963-2) 0.002 0-0.300 [facility] than one hour [id number] 13:15:00* Test Item Value Reference Range Interpretation Comments Coronavirus (PCR) (test code = Coronavirus (PCR)) NOT DETECTED NOTD ETECTED SARS-COV-2 (COVID19), HIGHRISK, RT-PCRNegative results do not preclude SARS-CoV- 2 infection and should not be used as the sole basis for patient management deci sions. Negative results must be combined with clinical observations, patient his tory, and epidemiological information. Optimum specimen types and timing for pea k viral levels during infections caused by SARS-CoV-2 have not been determined. Collection of multiple specimens ot types of specimens may be necessary to detec t virus. Improper specimen collection and handling, sequence variability under p rimers/probes, or organism present below the limit of detection may lead to fals e negative results. Positive and negative predictive values of testing are highl y dependent on prevalance. False negative test results are more likely when prev alence is high.The expected result is negative (not detected).The SARS-CoV-2 wilfrid t is intended for the qualitative detection of nucleic acid from SARS-CoV-2 in n asopharyngeal and oropharyngeal swab samples from patients who meet COVID-19 cli nical and or epidemiological criteria. For lower respiratory tract specimens, th e assay is submitted for authoriztion by FDA under an Emergency Use Authorizatio n (EUA). Testing methodology is real time RT-PCR. If received as separate collec tion devices, nasopharygeal and oropharyngeal specimens are combined for analysi s. Additional specimens may be split to a separate accession for analysi and rep orting as this test includes a single unit of service.Test results must be corre lated with clinical presentation and evaluated in the context of other laborator y and epidemiologic data. Test performance can be affected because the epidemiol ogy and clinical spectrum of infection caused by SARS-CoV-2 is not fully known. For example, the optimum types of specimens to collect and when during the cours e of infection these specimens are most likely to contain detectable viral RNA m ay not be known.This test has not been Food and Drug Administration (FDA) cleare d or approved and has been authorized by FDA under an Emergency Use Authorizatio n (EUA). The test is only authorized for the duration of the declaration that ci rcumstances exist justifying the authorization of emergency use of in vitro diag nostic tests for detection and/or diagnosis of SARS-CoV-2 under section 564(b) o f the Act, 21 U.S.C. section 360bbb-3(b)(1), unless the authorization is termina shira or revoked sooner. [facility] are certified under the C linical Laboratory Improvement Amendments of 1988 (CLIA), 42 U.S.C. section 263a , to perform high complexity tests.Testing performed by [facility] [id number] [place], [place] [phone] Director: Jaime Evans M.D.CLIA # [id number] leukocytes automated count (number/volume)2019-12-22 12:45:00* Test Item Value Reference Range Interpretation Comments White Blood Count (test code = 6690-2) 8.48 4.8-10.8 [facility] erythrocytes automated count (number/volume)2019-12-22 12:45:00* Test Item Value Reference Range Interpretation Comments Red Blood Count (test code = 789-8) 4.20 3.6-5.1 [facility] (moles/volume)2019-12-22 12:45:00* Test Item Value Reference Range Interpretation Comments Hemoglobin (test code = 77365-0) 11.3 12.0-16.0 [facility] HospitalAutomated blood hematocrit (volume fraction)2019-12-22 12:45:00* Test Item Value Reference Range Interpretation Comments Hematocrit (test code = 4544-3) 36.8 34.2-44.1 [facility] HospitalAutomated erythrocyte mean corpuscular sskyob7044-66-43 12:45:00* Test Item Value Reference Range Interpretation Comments Mean Corpuscular Volume (test code = 787-2) 87.6 81-99 [facility] HospitalAutomated erythrocyte mean corpuscular hemoglobin (mass per erythrocyte)2019-12-22 12:45:00* Test Item Value Reference Range Interpretation Comments Mean Corpuscular Hemoglobin (test code = 785-6) 26.9 28-32 [facility] HospitalAutomated erythrocyte mean corpuscular hemoglobin concentration measurement (mass/volume)2019-12-22 12:45:00* Test Item Value Reference Range Interpretation Comments Mean Corpuscular Hemoglobin Concent (test code = 786-4) 30.7 31-35 [facility] HospitalRDW NooNj-Gyu9618-54-29 12:45:00* Test Item Value Reference Range Interpretation Comments Red Cell Distribution Width (test code = 40216-8) 13.5 11.7 -14.4 [facility] HospitalAutomated blood platelet count (count/volume)2019-12-22 12:45:00* Test Item Value Reference Range Interpretation Comments Platelet Count (test code = 777-3) 307 140-360 [facility] HospitalAutsam[facility] centered blood segmented neutrophil count as percentage of total awimybitqa2741-72-41 12:45:00* Test Item Value Reference Range Interpretation Comments Neutrophils (%) (Auto) (test code = 53759-1) 66.8 38.7-80.0 [facility] HospitalAutomated blood lymphocyte count as percentage ot total scdoofvyxl8847-85-13 12:45:00* Test Item Value Reference Range Interpretation Comments Lymphocytes (%) (Auto) (test code = 736-9) 19.7 18.0-39.1 [facility] HospitalAutomated blood monocyte count as percentage of total kuybiwcnyn4866-64-39 12:45:00* Test Item Value Reference Range Interpretation Comments Monocytes (%) (Auto) (test code = 5905-5) 7.9 4.4-11.3 [facility] HospitalAutomated blood eosinophil count as percentage of total gzfdvwuksw4523-39-20 12:45:00* Test Item Value Reference Range Interpretation Comments Eosinophils (%) (Auto) (test code = 713-8) 3.7 0.0-6.0 [facility] HospitalAutomated blood basophil count as percentage of total cupambfgch7303-71-74 12:45:00* Test Item Value Reference Range Interpretation Comments Basophils (%) (Auto) (test code = 706-2) 1.3 0.0-1.0 [facility] HospitalFluoroscopic procedure less than one hour gjvzosrm1673-03-77 12:45:00* Test Item Value Reference Range Interpretation Comments IM GRANULOCYTES % (test code = IM GRANULOCYTES %) 0.6 0.0- 1.0 [facility] HospitalAutomated blood neutrophil count 2019-12-22 12:45:00* Test Item Value Reference Range Interpretation Comments Neutrophils # (Auto) (test code = 751-8) 5.7 2.1-6.9 [facility] HospitalBlood lymphocytes count (number/volume) 2019-12-22 12:45:00* Test Item Value Reference Range Interpretation Comments Lymphocytes # (Auto) (test code = 35682-1) 1.7 1.0-3.2 [facility] HospitalBlood monocytes automated count (number/volume)2019-12-22 12:45:00* Test Item Value Reference Range Interpretation Comments Monocytes # (Auto) (test code = 742-7) 0.7 0.2-0.8 [facility] HospitalAutomated blood eosinophil count 2019-12-22 12:45:00* Test Item Value Reference Range Interpretation Comments Eosinophils # (Auto) (test code = 711-2) 0.3 0.0-0.4 [facility] HospitalAutomated blood basophil count (count/volume)2019-12-22 12:45:00* Test Item Value Reference Range Interpretation Comments Basophils # (Auto) (test code = 704-7) 0.1 0.0-0.1 [facility] HospitalFluoroscopic procedure less than one hour kcmyfkmf1870-31-15 12:45:00* Test Item Value Reference Range Interpretation Comments Absolute Immature Granulocyte (auto (wilfrid t code = Absolute Immature Granulocyte (auto) 0.05 0-0.1 [facility] HospitalCT ABDOMEN/PELVIS [id number] 22:15:00 [facility] [address] [place] [address] Patient Name: RAVI CARRANZA MR #: [id number] : 1950 Age/Sex: 69/F Req #: [id number] Adm Physician: Ordered by: OTTO LANDEROS NP Report #: [id number] Location: ER Room/Bed: Procedure: 30 CT/CT ABDOMEN/PELVIS W Exam Date: 06/30/19 Exam T jayden: 214 REPORT STATUS: Signed EXAM: CT Abdomen and Pelvis WITH contrast INDICATION: lower abdomin al pain and fever [id number] COMPARISON: CT abdomen/pelvis dated TECHNIQUE: Abdomen and pelvis were scanned utilizing a multidetector h elical scanner from the lung base to the pubic symphysis after administration of IV contrast. Coronal and sagittal reformations were obtained. Dose modulati on, iterative reconstruction, and/or weight based adjustment of the mA/kV was utilized to reduce the radiation dose to as low as reasonably achievable. Ro utine protocol was performed. Scan was performed when during portal venous pha se. IV CONTRAST: 100 mL of Isovue-370 ORAL CONTRAST: Water COMPLICATIONS: None RADIATION DOSE: Total DLP: 533.78 mGy*cm Estimated effective dose: (DLP x 0.015 x size factor) mSv C TDIvol has been reviewed. It is below the limits set by the Radiation Protocol Committee (RPC). FINDINGS: LINES and TUBES: None. LOWER THORAX: Unremarkable HEPATOBILIARY: Hepatomegaly. No focal hepatic lesions. No bi liary ductal dilation. Mild central and left hepatic lobe pneumobilia. GA LLBLADDER: Surgically absent. SPLEEN: No splenomegaly. PANCREAS: No f ocal masses or ductal dilatation. ADRENALS: No adrenal nodules K IDNEYS/URETERS: Kidneys enhance symmetrically. Minimal right renal hydronephro sis and mild to moderate hydroureter. There is mild right renal cortical atrop hy. Left kidney is unremarkable. No left hydronephrosis. No renal stones. GI TRACT: No abnormal distention or evidence of bowel obstruction. Wall thic kening and inflammation surrounding the sigmoid colon. Sigmoid diverticulosis. Intact right abdomen bowel anastomosis. Appendix is normal. PELVIC ORGANS /BLADDER: Unremarkable. Hysterectomy. LYMPH NODES: No lymphadenopathy. VESSELS: Unremarkable. PERITONEUM / RETROPERITONEUM: No free air or fluid. BONES: Unchanged right femoral neck sclerotic focus, likely a bone island. SOFT TISSUES: Unremarkable. IMPRESSION: 1. Sigmoid di verticulitis. No evidence of perforation or abscess formation. 2. Minimal rig ht hydronephrosis and mild to moderate right hydroureter with mild right renal cortical atrophy. No evidence of obstructive urolithiasis. Signed by: Dr. Homer Keating MD on 06/30/2019 10:27 PM Dictated By: HOMER KEATING MD El ectronically Signed By: HOMER KEATING MD on 06/30/192226 Transcribed By: ASHLEY EASON on 06/30/192226 COPY TO: OTTO LANDEROS WHEY DEPARTMENT OPERATOR ABDOMEN ACUTE SERIES W/MAKSIM [id number] 20:27:00 [place] [address] Patient Name: RAVI CARRANZA MR #: [id number] : 1950 Age/Sex: 69/F Req #: [id number] Adm Physician: Ordered by: PATRIA HOYOS DO Report #: [id number] Location: ER Room/Bed: Procedure: 1206-00 66 DX/ABDOMEN ACUTE SERIES W/PA CXR Exam Date: 06/30/19 Exam Time: 1951 REPORT STATUS: Signed EXAMINATION: ABDOMEN ACUTE SERIES W/PA CXR INDICATION: FEVER /PAIN COMPARISON: None FINDINGS: PA and lateral views TUBE S and LINES: Cholecystectomy clips LUNGS: Lungs are well inflated. There is no evidence of pneumonia or pulmonary edema. PLEURA: No pleural effu mohan or pneumothorax. HEART AND MEDIASTINUM: The cardiomediastinal silhoue tte is unremarkable. BONES AND SOFT TISSUES: No acute osseous lesion. Soft tissues are unremarkable. ABDOMEN AND PELVIS: Normal volume of stool in the colon. No dilated loops of small bowel. No abnormal abdominal calcifi cations. No abnormal soft tissue masses. No pneumoperitoneum. No acute osseous abnormality. IMPRESSION: No acute abnormality. Signed by: Enrike Wilks MD on 06/30/2019 8:32 PM Dictated By: SIMONA Crooks 31 Transcribed By: DERRICK on 06/30/192031 COPY TO: PATRIA HOYOS DO Sodium Rrjjw0587-33-77 20:12:00* Test Item Value Reference Range Interpretation Comments Sodium Level (test code = 2951-2) 133 136-145 L [facility] HospitalPotassium Tetsk5007-63-89 20:12:00* Test Item Value Reference Range Interpretation Comments Potassium Level (test code = 2823-3) 3.9 3.5-5.1 [facility] HospitalChloride Jrpqx1212-74-99 20:12:00* Test Item Value Reference Range Interpretation Comments Chloride Level (test code = 2075-0) 97 98-107 L [facility] HospitalCarbon Dioxide Tdhgr8160-12-65 20:12:00* Test Item Value Reference Range Interpretation Comments Carbon Dioxide Level (test code = 2028-9) 27 22-29 [facility] HospitalAnion Nvw7709-51-26 20:12:00* Test Item Value Reference Range Interpretation Comments Anion Gap (test code = 16381-3) 12.9 8-16 [facility] HospitalBlood Urea Byaeejyx9494-65-35 20:12:00* Test Item Value Reference Range Interpretation Comments Blood Urea Nitrogen (test code = 3094-0) 13 7-26 [facility] HospitalCreatinine2019-12-06 20:12:00* Test Item Value Reference Range Interpretation Comments Creatinine (test code = 2160-0) 0.77 0.57-1.11 [facility] HospitalBUN/Creatinine Gqttp2433-11-74 20:12:00* Test Item Value Reference Range Interpretation Comments BUN/Creatinine Ratio (test code = 3097-3) 17 6- [facility] HospitalEstimat Glomerular Filtration Rate 2019-06-30 20:12:00* Test Item Value Reference Range Interpretation Comments Estimat Glomerular Filtration Rate (test code = 613495601) > 60 >60 Ranges were taken from the National Kidney Disease Education Program and the [facility] Kid[facility] Foundation literature.Reference ranges:60 or greater: Jlotqv40-97 ( for 3 consecutive months): Chronic kidney disease 15 or less: Kidney failureMet[facility] HospitalGlucose Sjkbz7962-57-77 20:12:00* Test Item Value Reference Range Interpretation Comments Glucose Level (test code = HDF8403) 127 74-118 H [facility] HospitalCalcium Phgsi9143-53-37 20:12:00* Test Item Value Reference Range Interpretation Comments Calcium Level (test code = 39777-6) 9.3 8.4-10.2 [facility] HospitalTotal Hmepiqvqj1207-34-26 20:12:00* Test Item Value Reference Range Interpretation Comments Total Bilirubin (test code = 1975-2) 1.6 0.2-1.2 H [facility] HospitalAspartate Amino Transf (AST/SGOT) 2019-06-30 20:12:00* Test Item Value Reference Range Interpretation Comments Aspartate Amino Transf (AST/SGOT) (test code = Aspartate Amino Transf (AST/SGOT)) 31 5-34 [facility] HospitalAlanine Aminotransferase (ALT/SGPT) 2019-06-30 20:12:00* Test Item Value Reference Range Interpretation Comments Alanine Aminotransferase (ALT/SGPT) (test code = 1742-6) 29 0-55 [facility] HospitalTotal Rrdmxlk4454-93-45 20:12:00* Test Item Value Reference Range Interpretation Comments Total Protein (test code = 2885-2) 7.3 6.5-8.1 [facility] HospitalAlbumin2019-12-06 20:12:00* Test Item Value Reference Range Interpretation Comments Albumin (test code = 1751-7) 3.1 3.5-5.0 L [facility] HospitalGlobulin2019-12-06 20:12:00* Test Item Value Reference Range Interpretation Comments Globulin (test code = 95576-6) 4.2 2.3-3.5 H [facility] HospitalAlbumin/Globulin Rklzq6590-66-42 20:12:00 * Test Item Value Reference Range Interpretation Comments Albumin/Globulin Ratio (test code = 1759-0) 0.7 0.8-2.0 L [facility] HospitalAlkaline Geanwzitrdx8898-11-74 20:12:00* Test Item Value Reference Range Interpretation Comments Alkaline Phosphatase (test code = 6768-6) 194 40-150 H [facility] HospitalUrine Rrlbr1705-13-55 20:09:00* Test Item Value Reference Range Interpretation Comments Urine Color (test code = 5778-6) YELLOW YELLOW [facility] HospitalUrine Etvmrba7252-69-04 20:09:00* Test Item Value Reference Range Interpretation Comments Urine Clarity (test code = 75389-4) SL CLOUDY CLEAR [facility] HospitalUrine Specific Uhcydzg9522-17-97 20:09:00 * Test Item Value Reference Range Interpretation Comments Urine Specific [place] (test code = 5811-5) 1.010 1.010-1.02 5 [facility] HospitalUrine fE6237-88-42 20:09:00* Test Item Value Reference Range Interpretation Comments Urine pH (test code = 98110-1) 7 5-7 [facility] HospitalUrine Leukocyte Jueengqn2127-90-61 20:09:00* Test Item Value Reference Range Interpretation Comments Urine Leukocyte Esterase (test code = 5799-2) NEGATIVE NEGATIVE [facility] HospitalUrine Tsfslld9493-70-29 20:09:00* Test Item Value Reference Range Interpretation Comments Urine Nitrite (test code = 27559-4) NEGATIVE NEGATIVE [facility] HospitalUrine Fqnjswy7671-76-88 20:09:00* Test Item Value Reference Range Interpretation Comments Urine Protein (test code = 5804-0) 1+ NEGATIVE H [facility] Glucose (UA)2019-06-30 20:09:00* Test Item Value Reference Range Interpretation Comments Urine Glucose (UA) (test code = 2349-9) NEGATIVE NEGATIVE [facility] HospitalUrine Evnqcva9063-43-72 20:09:00* Test Item Value Reference Range Interpretation Comments Urine Ketones (test code = 48703-8) NEGATIVE NEGATIVE [facility] Ttzirxivybvq4195-80-98 20:09:00* Test Item Value Reference Range Interpretation Comments Urine Urobilinogen (test code = 31927-1) 0.2 0.2-1 [facility] HospitalUrine Batakxjwm6879-57-59 20:09:00* Test Item Value Reference Range Interpretation Comments Urine Bilirubin (test code = 1978-6) NEGATIVE NEGATIVE [facility] HospitalUrine Dwzck* Test Item Value Reference Range Interpretation Comments Urine Blood (test code = 45734-6) 1+ NEGATIVE H [facility] HospitalUrine QKV6924-69-33 20:09:00* Test Item Value Reference Range Interpretation Comments Urine WBC (test code = 5821-4) NONE 0-5 [facility] HospitalUrine VHZ9711-64-50 20:09:00* Test Item Value Reference Range Interpretation Comments Urine RBC (test code = 22577-7) 6-10 0-5 H [facility] HospitalUrine Hibfepvr6419-39-19 20:09:00* Test Item Value Reference Range Interpretation Comments Urine Bacteria (test code = 91988-8) MODERATE NONE H [facility] HospitalUrine Epithelial Xpiiz5757-83-86 20:09:00 * Test Item Value Reference Range Interpretation Comments Urine Epithelial Cells (test code = 57731-1) MANY NONE [facility] HospitalLactic Acid Rvhzg7903-53-89 20:07:00* Test Item Value Reference Range Interpretation Comments Lactic Acid Level (test code = Lactic Acid Level) 0.8 0.5- 2.0 [facility] HospitalWhite Blood Miqwz5356-75-08 19:50:00* Test Item Value Reference Range Interpretation Comments White Blood Count (test code = 6690-2) 9.40 4.8-10.8 [facility] HospitalRed Blood Rakrb9351-23-12 19:50:00* Test Item Value Reference Range Interpretation Comments Red Blood Count (test code = 789-8) 4.16 3.6-5.1 [facility] HospitalHemoglobin2019-12-06 19:50:00* Test Item Value Reference Range Interpretation Comments Hemoglobin (test code = 06586-5) 11.3 12.0-16.0 L [facility] HospitalHematocrit2019-12-06 19:50:00* Test Item Value Reference Range Interpretation Comments Hematocrit (test code = 4544-3) 36.0 34.2-44.1 [facility] HospitalMean Corpuscular Gxwava7116-80-84 19:50:00* Test Item Value Reference Range Interpretation Comments Mean Corpuscular Volume (test code = 787-2) 86.5 81-99 [facility] HospitalMean Corpuscular Kfjnoymvle5839-07-21 19:50:00* Test Item Value Reference Range Interpretation Comments Mean Corpuscular Hemoglobin (test code = 785-6) 27.2 28-32 L [facility] HospitalMean Corpuscular Hemoglobin Concent 2019-06-30 19:50:00* Test Item Value Reference Range Interpretation Comments Mean Corpuscular Hemoglobin Concent (test code = 786-4) 31.4 31-35 [facility] HospitalRed Cell Distribution Custg5758-67-70 19:50:00* Test Item Value Reference Range Interpretation Comments Red Cell Distribution Width (test code = 75213-6) 12.8 11.7 -14.4 [facility] HospitalPlatelet Lrtby6644-55-25 19:50:00* Test Item Value Reference Range Interpretation Comments Platelet Count (test code = 777-3) 305 140-360 [facility] HospitalNeutrophils (%) (Auto)2019-06-30 19:50:00 * Test Item Value Reference Range Interpretation Comments Neutrophils (%) (Auto) (test code = 41045-0) 72.7 38.7-80.0 [facility] HospitalLymphocytes (%) (Auto)2019-06-30 19:50:00 * Test Item Value Reference Range Interpretation Comments Lymphocytes (%) (Auto) (test code = 736-9) 14.7 18.0-39.1 L [facility] HospitalMonocytes (%) (Auto)2019-06-30 19:50:00* Test Item Value Reference Range Interpretation Comments Monocytes (%) (Auto) (test code = 5905-5) 9.7 4.4-11.3 [facility] HospitalEosinophils (%) (Auto)2019-06-30 19:50:00 * Test Item Value Reference Range Interpretation Comments Eosinophils (%) (Auto) (test code = 713-8) 1.3 0.0-6.0 [facility] HospitalBasophils (%) (Auto)2019-06-30 19:50:00* Test Item Value Reference Range Interpretation Comments Basophils (%) (Auto) (test code = 706-2) 1.2 0.0-1.0 H [facility] HospitalIM GRANULOCYTES %2019-06-30 19:50:00* Test Item Value Reference Range Interpretation Comments IM GRANULOCYTES % (test code = IM GRANULOCYTES %) 0.4 0.0- 1.0 [facility] HospitalNeutrophils # (Auto)2019-06-30 19:50:00* Test Item Value Reference Range Interpretation Comments Neutrophils # (Auto) (test code = 751-8) 6.8 2.1-6.9 [facility] HospitalLymphocytes # (Auto)2019-06-30 19:50:00* Test Item Value Reference Range Interpretation Comments Lymphocytes # (Auto) (test code = 60578-5) 1.4 1.0-3.2 [facility] HospitalMonocytes # (Auto)2019-06-30 19:50:00* Test Item Value Reference Range Interpretation Comments Monocytes # (Auto) (test code = 742-7) 0.9 0.2-0.8 H [facility] HospitalEosinophils # (Auto)2019-06-30 19:50:00* Test Item Value Reference Range Interpretation Comments Eosinophils # (Auto) (test code = 711-2) 0.1 0.0-0.4 [facility] HospitalBasophils # (Auto)2019-06-30 19:50:00* Test Item Value Reference Range Interpretation Comments Basophils # (Auto) (test code = 704-7) 0.1 0.0-0.1 [facility] HospitalAbsolute Immature Granulocyte (auto 2019-06-30 19:50:00* Test Item Value Reference Range Interpretation Comments Absolute Immature Granulocyte (auto (wilfrid t code = Absolute Immature Granulocyte (auto) 0.04 0-0.1 [facility] HospitalUrine color fgwwaelpdtwrm8705-96-46 18:11:00* Test Item Value Reference Range Interpretation Comments Urine Color (test code = 5778-6) YELLOW YELLOW [facility] HospitalUrine onvdvah8791-35-64 18:11:00* Test Item Value Reference Range Interpretation Comments Urine Clarity (test code = 21252-3) SL CLOUDY CLEAR [facility] of Urine by Test strip 2019-06-30 18:11:00* Test Item Value Reference Range Interpretation Comments Urine Specific [place] (test code = 5811-5) 1.010 1.010-1.02 5 [facility] HospitalUrine pH measurement by automated test rkbyc3334-59-02 18:11:00* Test Item Value Reference Range Interpretation Comments Urine pH (test code = 67425-3) 7 5-7 [facility] HospitalUrine leukocyte esterase detection by bhhhxpmu0629-33-78 18:11:00* Test Item Value Reference Range Interpretation Comments Urine Leukocyte Esterase (test code = 5799-2) NEGATIVE NEGATIVE [facility] HospitalUrine nitrite xfhsoiozq4783-43-18 18:11:00* Test Item Value Reference Range Interpretation Comments Urine Nitrite (test code = 51895-3) NEGATIVE NEGATIVE [facility] HospitalUrine protein measurement by test strip (mass/volume)2019-06-30 18:11:00* Test Item Value Reference Range Interpretation Comments Urine Protein (test code = 5804-0) 1+ NEGATIVE [facility] HospitalUrine glucose wdysxorni9956-81-25 18:11:00* Test Item Value Reference Range Interpretation Comments Urine Glucose (UA) (test code = 2349-9) NEGATIVE NEGATIVE [facility] HospitalUrine ketones detection by automated test vyqys4304-86-71 18:11:00* Test Item Value Reference Range Interpretation Comments Urine Ketones (test code = 91688-9) NEGATIVE NEGATIVE [facility] HospitalUrine urobilinogen measurement by test strip (mass/volume)2019-06-30 18:11:00* Test Item Value Reference Range Interpretation Comments Urine Urobilinogen (test code = 70457-7) 0.2 0.2-1 [facility] HospitalUrine total bilirubin measurement (mass/volume)2019-06-30 18:11:00* Test Item Value Reference Range Interpretation Comments Urine Bilirubin (test code = 1978-6) NEGATIVE NEGATIVE [facility] HospitalUrine erythrocytes bfkdqnrtq4225-40-65 18:11:00* Test Item Value Reference Range Interpretation Comments Urine Blood (test code = 25724-5) 1+ NEGATIVE [facility] HospitalAutomated urine sediment leukocyte count by microscopy (number/high power field)2019-06-30 18:11:00* Test Item Value Reference Range Interpretation Comments Urine WBC (test code = 5821-4) NONE 0-5 [facility] HospitalErythrocytes detection in urine sediment by light mxrylxwkiu5459-73-07 18:11:00* Test Item Value Reference Range Interpretation Comments Urine RBC (test code = 91576-3) 6-10 0-5 [facility] HospitalBacteria detection in urine sediment by light uhwhurhsoh3084-41-28 18:11:00* Test Item Value Reference Range Interpretation Comments Urine Bacteria (test code = 20387-1) MODERATE NONE [facility] HospitalEpithelial cells detection in urine sediment by light rzryshcchs0569-43-01 18:11:00* Test Item Value Reference Range Interpretation Comments Urine Epithelial Cells (test code = 44202-6) MANY NONE [facility]ham[facility]um or plasma sodium measurement (moles/volume)2019-06-30 18:09:00* Test Item Value Reference Range Interpretation Comments Sodium Level (test code = 2951-2) 133 136-145 [facility]hamerum or plasma potassium measurement (moles/volume)2019-06-30 18:09:00* Test Item Value Reference Range Interpretation Comments Potassium Level (test code = 2823-3) 3.9 3.5-5.1 [facility]hamerum or plasma chloride measurement (moles/volume)2019-06-30 18:09:00* Test Item Value Reference Range Interpretation Comments Chloride Level (test code = 2075-0) 97 98-107 [facility]hamerum or plasma carbon dioxide, total measurement (moles/volume)2019-06-30 18:09:00* Test Item Value Reference Range Interpretation Comments Carbon Dioxide Level (test code = 2028-9) 27 22-29 [facility]hamerum or plasma anion zuf7001-53-29 18:09:00* Test Item Value Reference Range Interpretation Comments Anion Gap (test code = 95273-4) 12.9 8-16 [facility]hamerum or plasma urea nitrogen measurement (mass/volume)2019-06-30 18:09:00* Test Item Value Reference Range Interpretation Comments Blood Urea Nitrogen (test code = 3094-0) 13 7-26 [facility]hamerum or plasma creatinine measurement (mass/volume)2019-06-30 18:09:00* Test Item Value Reference Range Interpretation Comments Creatinine (test code = 2160-0) 0.77 0.57-1.11 [facility]ham[facility]um or plasma urea nitrogen/creatinine mass yoayw5946-90-21 18:09:00* Test Item Value Reference Range Interpretation Comments BUN/Creatinine Ratio (test code = 3097-3) 17 6-25 [facility] HospitalEstimated glomerular filtration rate (GFR) bxfmjzbqibzkh8443-32-19 18:09:00* Test Item Value Reference Range Interpretation Comments Estimat Glomerular Filtration Rate (test code = 745043048) > 60 >60 Ranges were taken from the National Kidney Disease Education Program and the [facility] Foundation literature.Reference ranges:60 or greater: Yubefo22-35 ( for 3 consecutive months): Chronic kidney disease 15 or less: Kidney failureMetropolitan Methodist HospitalGlucose nwfjdgixfxl4207-03-43 18:09:00* Test Item Value Reference Range Interpretation Comments Glucose Level (test code = ERF3787) 127 74-118 [facility] or plasma calcium measurement (mass/volume)2019-06-30 18:09:00* Test Item Value Reference Range Interpretation Comments Calcium Level (test code = 97641-6) 9.3 8.4-10.2 [facility] HospitalFluoroscopic procedure less than one hour qvswpgqx5960-09-03 18:09:00* Test Item Value Reference Range Interpretation Comments Lactic Acid Level (test code = Lactic Acid Level) 0.8 0.5- 2.0 [facility]um or plasma total bilirubin measurement (mass/volume)2019-06-30 18:09:00* Test Item Value Reference Range Interpretation Comments Total Bilirubin (test code = 1975-2) 1.6 0.2-1.2 [facility] HospitalFluoroscopic procedure less than one hour tfcsahki8863-81-14 18:09:00* Test Item Value Reference Range Interpretation Comments Aspartate Amino Transf (AST/SGOT) (test code = Aspartate Amino Transf (AST/SGOT)) 31 5-34 [facility]ham[facility]um or plasma alanine aminotransferase measurement (enzymatic activity/volume)2019-06-30 18:09:00* Test Item Value Reference Range Interpretation Comments Alanine Aminotransferase (ALT/SGPT) (test code = 1742-6) 29 0-55 [facility] or plasma protein measurement (mass/volume)2019-06-30 18:09:00* Test Item Value Reference Range Interpretation Comments Total Protein (test code = 2885-2) 7.3 6.5-8.1 [facility] or plasma albumin measurement (mass/volume)2019-06-30 18:09:00* Test Item Value Reference Range Interpretation Comments Albumin (test code = 1751-7) 3.1 3.5-5.0 [facility] HospitalPlasma globulin measurement (mass/volume) 2019-06-30 18:09:00* Test Item Value Reference Range Interpretation Comments Globulin (test code = 09994-1) 4.2 2.3-3.5 [facility] or plasma albumin/globulin mass tlmoe9850-91-96 18:09:00* Test Item Value Reference Range Interpretation Comments Albumin/Globulin Ratio (test code = 1759-0) 0.7 0.8-2.0 [facility] or plasma alkaline phosphatase measurement (enzymatic activity/volume)2019-06-30 18:09:00* Test Item Value Reference Range Interpretation Comments Alkaline Phosphatase (test code = 6768-6) 194 40-150 [facility] HospitalBlood ryrtlfb0431-67-02 18:09:00* Test Item Value Reference Range Interpretation Comments Blood Culture (test code = 74888887) NO GROWTH AFTER 5 DAYS, FINAL REPORT [facility] HospitalBacterial blood gchqzxp2878-30-98 18:09:00* Test Item Value Reference Range Interpretation Comments Blood Culture (test code = 600-7) MICROCOCCUS SPECIES [facility] HospitalWhite Blood Fpadc0518-75-62 04:44:00* Test Item Value Reference Range Interpretation Comments White Blood Count (test code = 6690-2) 8.02 4.8-10.8 [facility] HospitalRed Blood Akvpc5822-17-64 04:44:00* Test Item Value Reference Range Interpretation Comments Red Blood Count (test code = 789-8) 4.26 3.6-5.1 [facility] HospitalHemoglobin2019-11-26 04:44:00* Test Item Value Reference Range Interpretation Comments Hemoglobin (test code = 36213-5) 11.7 12.0-16.0 L [facility] HospitalHematocrit2019-11-26 04:44:00* Test Item Value Reference Range Interpretation Comments Hematocrit (test code = 4544-3) 37.6 34.2-44.1 [facility] HospitalMean Corpuscular Nkpxow1030-64-71 04:44:00* Test Item Value Reference Range Interpretation Comments Mean Corpuscular Volume (test code = 787-2) 88.3 81-99 [facility] HospitalMean Corpuscular Znxnkuwtzt3445-81-80 04:44:00* Test Item Value Reference Range Interpretation Comments Mean Corpuscular Hemoglobin (test code = 785-6) 27.5 28-32 L [facility] HospitalMean Corpuscular Hemoglobin Concent 2019-06-20 04:44:00* Test Item Value Reference Range Interpretation Comments Mean Corpuscular Hemoglobin Concent (test code = 786-4) 31.1 31-35 [facility] HospitalRed Cell Distribution Chvum9050-17-34 04:44:00* Test Item Value Reference Range Interpretation Comments Red Cell Distribution Width (test code = 51487-0) 13.0 11.7 -14.4 [facility] HospitalPlatelet Vngwy8127-41-73 04:44:00* Test Item Value Reference Range Interpretation Comments Platelet Count (test code = 777-3) 412 140-360 H [facility] HospitalNeutrophils (%) (Auto)2019-06-20 04:44:00 * Test Item Value Reference Range Interpretation Comments Neutrophils (%) (Auto) (test code = 08253-4) 64.0 38.7-80.0 [facility] HospitalLymphocytes (%) (Auto)2019-06-20 04:44:00 * Test Item Value Reference Range Interpretation Comments Lymphocytes (%) (Auto) (test code = 736-9) 22.9 18.0-39.1 [facility] HospitalMonocytes (%) (Auto)2019-06-20 04:44:00* Test Item Value Reference Range Interpretation Comments Monocytes (%) (Auto) (test code = 5905-5) 6.9 4.4-11.3 [facility] HospitalEosinophils (%) (Auto)2019-06-20 04:44:00 * Test Item Value Reference Range Interpretation Comments Eosinophils (%) (Auto) (test code = 713-8) 4.1 0.0-6.0 [facility] HospitalBasophils (%) (Auto)2019-06-20 04:44:00* Test Item Value Reference Range Interpretation Comments Basophils (%) (Auto) (test code = 706-2) 1.1 0.0-1.0 H [facility] HospitalIM GRANULOCYTES %2019-06-20 04:44:00* Test Item Value Reference Range Interpretation Comments IM GRANULOCYTES % (test code = IM GRANULOCYTES %) 1.0 0.0- 1.0 [facility] HospitalNeutrophils # (Auto)2019-06-20 04:44:00* Test Item Value Reference Range Interpretation Comments Neutrophils # (Auto) (test code = 751-8) 5.1 2.1-6.9 [facility] HospitalLymphocytes # (Auto)2019-06-20 04:44:00* Test Item Value Reference Range Interpretation Comments Lymphocytes # (Auto) (test code = 70005-4) 1.8 1.0-3.2 [facility] HospitalMonocytes # (Auto)2019-06-20 04:44:00* Test Item Value Reference Range Interpretation Comments Monocytes # (Auto) (test code = 742-7) 0.6 0.2-0.8 [facility] HospitalEosinophils # (Auto)2019-06-20 04:44:00* Test Item Value Reference Range Interpretation Comments Eosinophils # (Auto) (test code = 711-2) 0.3 0.0-0.4 [facility] HospitalBasophils # (Auto)2019-06-20 04:44:00* Test Item Value Reference Range Interpretation Comments Basophils # (Auto) (test code = 704-7) 0.1 0.0-0.1 [facility] HospitalAbsolute Immature Granulocyte (auto 2019-06-20 04:44:00* Test Item Value Reference Range Interpretation Comments Absolute Immature Granulocyte (auto (wilfrid t code = Absolute Immature Granulocyte (auto) 0.08 0-0.1 [facility]hamodium Nxczy1488-95-34 03:36:00* Test Item Value Reference Range Interpretation Comments Sodium Level (test code = 2951-2) 138 136-145 [facility] HospitalPotassium Qzcnd1698-63-50 03:36:00* Test Item Value Reference Range Interpretation Comments Potassium Level (test code = 2823-3) 4.1 3.5-5.1 [facility] HospitalChloride Cjekc6714-17-48 03:36:00* Test Item Value Reference Range Interpretation Comments Chloride Level (test code = 2075-0) 102 98-107 [facility] HospitalCarbon Dioxide Meuuv3435-90-48 03:36:00* Test Item Value Reference Range Interpretation Comments Carbon Dioxide Level (test code = 2028-9) 29 22-29 [facility] HospitalAnion Nil6406-35-90 03:36:00* Test Item Value Reference Range Interpretation Comments Anion Gap (test code = 68001-1) 11.1 8-16 [facility] HospitalBlood Urea Twuxoaoc1220-02-94 03:36:00* Test Item Value Reference Range Interpretation Comments Blood Urea Nitrogen (test code = 3094-0) 13 7-26 [facility] HospitalCreatinine2019-11-26 03:36:00* Test Item Value Reference Range Interpretation Comments Creatinine (test code = 2160-0) 0.77 0.57-1.11 [facility] HospitalBUN/Creatinine Wrklv5421-81-05 03:36:00* Test Item Value Reference Range Interpretation Comments BUN/Creatinine Ratio (test code = 3097-3) 17 6-25 [facility] HospitalEstimat Glomerular Filtration Rate 2019-06-20 03:36:00* Test Item Value Reference Range Interpretation Comments Estimat Glomerular Filtration Rate (test code = 075518418) > 60 >60 Ranges were taken from the National Kidney Disease Education Program and the [employer] [employer] literature.Reference ranges:60 or greater: Rhacnf20-12 ( for 3 consecutive months): Chronic kidney disease 15 or less: Kidney failureMetropolitan Methodist HospitalGlucose Zsvti0436-10-95 03:36:00* Test Item Value Reference Range Interpretation Comments Glucose Level (test code = JQB7757) 117 74-118 [facility] HospitalCalcium Ijksm8804-04-35 03:36:00* Test Item Value Reference Range Interpretation Comments Calcium Level (test code = 44205-0) 9.4 8.4-10.2 [facility] HospitalMRI MRCP HNC6147-65-36 16:42:00 [place] [address] Patient Name: RAVI CARRANZA MR #: [id number] : 1950 Age/Sex: 69/F Req #: [id number] Adm Physician: YUSRA SCHULTZ MD Ordered by: DEQUAN FUENTES MD Report #: [id number] Location: [facility] Room/Bed: [facility] Procedure: 1125-001 0 MRI/MRI MRCP WWO Exam Date: Exam Time: REPORT STATUS: Signed TECHNIQUE: MRI of t he abdomen and MRCP WITHOUT and WITH intravenous contrast. 3-D volume reconstr uctions were obtained to evaluate the biliary ductal system. INDICATION: ABN LIVER ENZYMES Y. COMPARISON: CT from 2019. FINDINGS: LOWER THORAX: Unremarkable. LIVER: The liver is enlarged. No hepatic signal abnormality. There is an area of mild increased T2-weighted signal in s egment V which measures 3.1 cm on axial T2-weighted image 20. This does mildly hyperenhancement on delayed phase imaging. There is mild interstitial diffusi on in this area as well. BILIARY: Prior cholecystectomy. Pneumobilia. The c ommon bile duct measures 0.3 cm in diameter. There has likely been a prior hep aticojejunostomy. SPLEEN: No splenomegaly. PANCREAS: No focal masses or d uctal dilatation. ADRENALS: No adrenal nodules. KIDNEYS/URETERS: No hydro nephrosis or solid mass lesions. Mild right renal cortical scarring. KEVEN TONEUM/RETROPERITONEUM: No free fluid. LYMPH NODES: No lymphadenopathy. VESS ELS: Conventional hepatic arterial anatomy. A rounded arterial structure in th e hepatic hilum measures 0.7 cm I see on axial image 74 GI TRACT: No disten tion or wall thickening. Prior small bowel resection and anastomosis with patu lous small bowel at the anastomotic site. BONES AND SOFT TISSUES: Unremarka ble. IMPRESSION: The pneumobilia makes evaluation for underlying st ones suboptimal. However, none is definitely seen. 1. There is a 3.1 cm lesion in the liver which is hyperintense on T2-weighted imaging with mildly r estricted diffusion and delayed enhancement. If the patient has current signs of infection, phlegmon is the most likely diagnosis, especially given a prior hepaticojejunostomy and pneumobilia. Please correlate for signs of infection. The differential also includes focal nodular hyperplasia, cholangiocarcinoma, and a metastasis. A follow-up MRI of the abdomen with and without intravenous contrast is recommended in 3 months to document resolution after treatment. If the patient does not have signs of infection, consider Eovist MRI. 2. No definite choledocholithiasis. 3. Hepatomegaly. 4. The rounded area of arterial phase hyperenhancement in the hepatic hilum measures 0.7 cm and c ould be a small right hepatic artery aneurysm but is indeterminate. Close atte ntion on follow-up imaging is recommended. Signed by: Johnny Cross JR, MD on 06/19/2019 5:08 PM Dictated By: JOHNNY CROSS MD 170 Transcribed By: DERRICK on 06/19/19 170 COPY TO: DEQUAN FUENTES MD CHEST XRAY LINE VFWXWFMOC2391-60-85 13:00:00 [facility] [address] [address] Patient Name: RAVI CARRANZA MR #: [id number] : 1950 Age/Sex: 69/F Req #: [id number] Adm Physician: YUSRA SCHULTZ MD Ordered by: YUSRA SCHULTZ MD Report #: [id number] Location: MED/SURG3 Room/Bed: [facility] Procedure: [id number] DX/CHEST XRAY LINE PLACEMENT Exam Date: Exam Time: REPORT STATUS: Signed EXAMINAT ION: CHEST XRAY LINE PLACEMENT INDICATION: Line placement COMPARI SON: Chest radiograph 2019 FINDINGS: LINES/TUBES:Interval l eft PICC line placement, terminating at the superior vena cava. LUNGS:The lungs are well-inflated. No focal consolidation or pulmonary edema. PLEURA :No pleural effusion or pneumothorax. MEDIASTINUM:The cardiomediastinal lupe houette appears normal in size and shape. BONES/SOFT TISSUES:No acute osseo us injury. ABDOMEN:No free air under the diaphragm. IMPRESSION: Left PICC line terminates at the superior vena cava. No focal pneumonia or pulmonary edema. Signed by: Bobo Burciaga MD on 06/19/2019 1:01 PM Dic tated By: BOBO BURCIAGA MD 130 1 Transcribed By: DERRICK on 06/19/19 1301 COPY TO: KILLAM,YUSRA MD Total Gopjiherk6918-69-08 07:02:00* Test Item Value Reference Range Interpretation Comments Total Bilirubin (test code = 1975-2) 0.4 0.2-1.2 [facility] HospitalAspartate Amino Transf (AST/SGOT) 2019-06-19 07:02:00* Test Item Value Reference Range Interpretation Comments Aspartate Amino Transf (AST/SGOT) (test code = Aspartate Amino Transf (AST/SGOT)) 41 5-34 H [facility] HospitalAlanine Aminotransferase (ALT/SGPT) 2019-06-19 07:02:00* Test Item Value Reference Range Interpretation Comments Alanine Aminotransferase (ALT/SGPT) (test code = 1742-6) 47 0-55 [facility] HospitalTotal Gcwuyrb9663-05-39 07:02:00* Test Item Value Reference Range Interpretation Comments Total Protein (test code = 2885-2) 6.8 6.5-8.1 [facility] HospitalAlbumin2019-11-25 07:02:00* Test Item Value Reference Range Interpretation Comments Albumin (test code = 1751-7) 2.8 3.5-5.0 L [facility] HospitalGlobulin2019-11-25 07:02:00* Test Item Value Reference Range Interpretation Comments Globulin (test code = 99565-0) 4.0 2.3-3.5 H [facility] HospitalAlbumin/Globulin Uamcu7685-57-01 07:02:00 * Test Item Value Reference Range Interpretation Comments Albumin/Globulin Ratio (test code = 1759-0) 0.7 0.8-2.0 L [facility] HospitalAlkaline Luvfixdfpvu5610-84-47 07:02:00* Test Item Value Reference Range Interpretation Comments Alkaline Phosphatase (test code = 6768-6) 202 40-150 H [facility] HospitalUrine Uafzmld5937-90-58 06:39:00* Test Item Value Reference Range Interpretation Comments Urine Culture (test code = 630-4) No Result Data Provided [facility] HospitalUrine Urvfvbf0698-85-30 06:39:00* Test Item Value Reference Range Interpretation Comments Urine Culture (test code = 630-4) No Result Data Provided [facility] Occult Vkzqq7081-04-75 10:15:00* Test Item Value Reference Range Interpretation Comments Stool Occult Blood (test code = 2335-8) NEGATIVE NEGATIVE [facility]ham[facility] Occult Rqimc9896-56-97 10:15:00* Test Item Value Reference Range Interpretation Comments Stool Occult Blood (test code = 2335-8) NEGATIVE NEGATIVE [facility] HospitalUrine GOW2582-11-60 09:35:00* Test Item Value Reference Range Interpretation Comments Urine WBC (test code = 5821-4) 6-10 0-5 H [facility] HospitalUrine QAN1894-13-30 09:35:00* Test Item Value Reference Range Interpretation Comments Urine RBC (test code = 53844-0) 0-5 0-5 [facility] HospitalUrine Wtrecxwo3136-60-28 09:35:00* Test Item Value Reference Range Interpretation Comments Urine Bacteria (test code = 84213-6) MODERATE NONE H [facility] HospitalUrine Epithelial Iaqzs6804-65-20 09:35:00 * Test Item Value Reference Range Interpretation Comments Urine Epithelial Cells (test code = 75389-0) FEW NONE [facility] HospitalUrine Iytde2100-70-85 09:19:00* Test Item Value Reference Range Interpretation Comments Urine Color (test code = 5778-6) YELLOW YELLOW [facility] HospitalUrine Ioydnuq6831-17-90 09:19:00* Test Item Value Reference Range Interpretation Comments Urine Clarity (test code = 68283-6) SL CLOUDY CLEAR [facility] HospitalUrine Specific Pjmzgsk1471-63-82 09:19:00 * Test Item Value Reference Range Interpretation Comments Urine Specific [place] (test code = 5811-5) 1.015 1.010-1.02 5 [facility] HospitalUrine wT6853-54-64 09:19:00* Test Item Value Reference Range Interpretation Comments Urine pH (test code = 52306-0) 6 5-7 [facility] HospitalU[facility] Leukocyte Mzuopwpw1183-20-37 09:19:00* Test Item Value Reference Range Interpretation Comments Urine Leukocyte Esterase (test code = 20755-1) NEGATIVE NEGATIV E [facility] HospitalUrine Cvojbvb6413-09-15 09:19:00* Test Item Value Reference Range Interpretation Comments Urine Nitrite (test code = 30740-2) NEGATIVE NEGATIVE [facility] HospitalUrine Wgsiqqu6621-13-01 09:19:00* Test Item Value Reference Range Interpretation Comments Urine Protein (test code = 77262-3) NEGATIVE NEGATIVE [facility] HospitalUrine Glucose (UA)2019-06-18 09:19:00* Test Item Value Reference Range Interpretation Comments Urine Glucose (UA) (test code = 18476-6) NEGATIVE NEGATIVE [facility] HospitalUrine Kxyoolc8209-23-53 09:19:00* Test Item Value Reference Range Interpretation Comments Urine Ketones (test code = 98386-7) NEGATIVE NEGATIVE [facility] HospitalUrine Byfvzfunjdte3570-10-79 09:19:00* Test Item Value Reference Range Interpretation Comments Urine Urobilinogen (test code = 82021-4) 0.2 0.2-1 [facility] HospitalUrine Nhcpwzgtb0531-22-47 09:19:00* Test Item Value Reference Range Interpretation Comments Urine Bilirubin (test code = 1977-8) NEGATIVE NEGATIVE [facility] HospitalUrine Hjrrs9182-25-05 09:19:00* Test Item Value Reference Range Interpretation Comments Urine Blood (test code = 45815-3) NEGATIVE NEGATIVE [facility] gastrointestinal hemoglobin jyntkkwgp5421-39-27 08:00:00* Test Item Value Reference Range Interpretation Comments Stool Occult Blood (test code = 2335-8) NEGATIVE NEGATIVE [facility] HospitalCT ABDOMEN/PELVIS CF9203-12-72 21:11:00 [place] [address] Patient Name: RAVI CARRANZA MR #: [id number] : 1950 Age/Sex: 69/F Req #: [id number] Adm Physician: Ordered by: PATRIA HOYOS DO Report #: [id number] Location: Room/Bed: Procedure: 112[address] 33 CT/CT ABDOMEN/PELVIS WO Exam Date: 06/16/19 Exam Time: 2039 REPORT STATUS: Signed EXAM: CT Abdomen and Pelvis WITHOUT contrast INDICATION: Right flank pain COMPARISON: None. TECHNIQUE: Abdomen and pelvis were scanned utilizing a mu ltidetector helical scanner from the lung base to the pubic symphysis without administration of IV contrast. Absence of intravenous contrast decreases sensi tivity for detection of focal lesions and vascular pathology. Coronal and sagi ttal reformations were obtained. Routine protocol was performed. IV CO NTRAST: None ORAL CONTRAST: None COMPLICATIONS: None RADIATION DOSE: Total DLP: 612 mGy*cm Estimated effective dose: (DLP x 0.015 x size factor) mSv CTDIvol has been reviewed. It is below th e limits set by the Radiation Protocol Committee (RPC). Dose modulation , iterative reconstruction, and/or weight based adjustment of the mA/kV was ut ilized to reduce the radiation dose to as low as reasonably achievable. FINDINGS: LINES and TUBES: None. LOWER THORAX : Mild cardiomegaly. Aor tic valve calcifications. HEPATOBILIARY: Mild pneumobilia, as seen in p atients with prior biliary surgery. No evidence of inflammatory changes. No fo lane hepatic lesions. No biliary ductal dilation. GALLBLADDER: There are cholecystectomy clips. SPLEEN: No splenomegaly. PANCREAS: No focal masses or ductal dilatation. ADRENALS: No adrenal nodules KIDNEY S/URETERS: No hydronephrosis. No cystic or solid mass lesions. A few punctat e nonobstructive right renal calculi. Mild right renal atrophy. Mild urothelia l thickening of the right renal pelvis and proximal ureteral. GI TRACT: Small hiatal hernia. No abnormal distention or wall thickening. Bowel anastom otic sutures in the lower mid abdomen with this focal bowel dilation, a common and essentially benign finding seen after bowel anastomosis. Colonic divertic minal without diverticulitis. Appendix is normal. PELVIC ORGANS/BLADDER: Hys terectomy. No adnexal masses. Trace perivesicular fat stranding. LYMPH N ODES: No lymphadenopathy. VESSELS: There is mild atherosclerotic disease in the aorta and major arterial branches. PERITONEUM / RETROPERITONEUM: No free air or fluid. BONES: There are degenerative changes in the spine. SOFT TISSUES: Small sublatissimus lipoma in the right lower lateral posterior chest. IMPRESSION: 1. Urinary bladder findings can be seen wi th cystitis. 2. Subtle findings which can be seen with ascending right urina ry tract infection. Mild right renal atrophy and punctate nonobstructive right renal calculi. 3. Colonic diverticulosis without diverticulitis. 4. Mi ld cardiomegaly. 5. Mild hepatomegaly. 6. Small hiatal hernia. Signed by: Rhett Vega DO on 2019 9:24 PM Dictated By: RHETT PATTERSON ON DO 23 Transcrib ed By: DERRICK on 06/16/192123 COPY TO: PATRIA HOYOS DO Bacterial urine xkzccpq1113-23-91 21:10:00* Test Item Value Reference Range Interpretation Comments Urine Culture (test code = 630-4) ESCHERICHIA [facility]ESBL [facility]2019 21:06:00 [place] [address] Patient Name: RAVI CARRANZA MR #: [id number] : 1950 Age/Sex: 69/F Req #: [id number] Adm Physician: Ordered by: PATRIA HOYOS DO Report #: [id number] Location: ER Room/Bed: Procedure: 1122-00 80 DX/CHEST SINGLE (PORTABLE) Exam Date: 06/16/19 Ex am Time: 2039 REPORT STATUS: Signed EXAM: CHEST SINGLE (PORTABLE) DATE: 2019 8:30 PM INDICATI ON: SOB [id number] COMPARISON: None FINDINGS: Lines and tubes: None Heart size normal for projection. No focal pul monary opacity, pleural effusion or pneumothorax. Upper abdomen unremarkabl e. No acute bony abnormality. IMPRESSION: No evidence for acute disease. Signed by: Dr. Davis Mason M.D. on 2019 9:06 PM Dictated By: DAVIS MASON MD 05 Transcribed By: DERRICK on 06/16/192105 COPY TO: PATRIA HOYOS DO
[2020-06-08 11:26] VITALS: BP 106/67
[2020-06-08] MEDS ORDERED: ACETAMINOPHEN 325 MG TAB PO NR (11:30)
[2020-06-08] MEDS ORDERED: BACTRIM DS TAB1 EACH PO (11:32)
== END 2020-06-08 11:39 | disposition home or self-care (01) ==
LOC: FSED 10:19
DX: N39.0 Urinary tract infection, site not specified (principal); R11.2 Nausea with vomiting, unspecified; I10 Essential (primary) hypertension
CPT/HCPCS: 81003; 87086; 87186; 99283; J2550; Q0162

== ENCOUNTER 2020-06-12 18:58 | Emergency (ER) | payer MEDICARE ==
[~2020-06-12] VITALS: Ht 170.2 cm; Wt 83.9 kg
[~2020-06-12 18:58] MED LIST changes: +BACTRIM DS TAB1 EACH PO; +ONDANSETRON ODT8 MG PO; +PHENERGAN SUPP25 MG PR
[2020-06-12] MEDS ORDERED: ONDANSETRON HCL 4 MG ORAL DISINTEGRATING TAB ONE (19:54)
[2020-06-12] MEDS ORDERED: ONDANSETRON HCL 4 MG ORAL DISINTEGRATING TAB PO ONE (20:00)
[2020-06-12 20:13] LABS: BASOPHILS % 0.7 % (0.0-1.0); EOSINOPHILS # (AUTO) 0.1 (0.0-0.4); EOSINOPHILS % 1.2 % (0.0-6.0); HEMATOCRIT 38.1 % (34.2-44.1); HEMOGLOBIN 11.6 g/dL (12.0-16.0); LYMPHOCYTES # (AUTO) 1.9 (1.0-3.2); LYMPHOCYTES % 32.7 % (18.0-39.1); MEAN CORPUSCULAR HEMOGLOBIN 26.8 pg (28-32); MEAN CORPUSCULAR HGB CONC 30.4 g/dL (31-35); MONOCYTES # (AUTO) 0.4 (0.2-0.8); NEUTROPHILS # (AUTO) 3.3 (2.1-6.9); NEUTROPHILS % 57.9 % (38.7-80.0); PLATELET COUNT 223 x10e3/uL (140-360); RED BLOOD COUNT 4.33 x10e6/uL (3.6-5.1); RED CELL DISTRIBUTION WIDTH 13.2 % (11.7-14.4)
[2020-06-12 20:33] LABS: ALANINE AMINOTRANSFERASE 16 IU/L (0-55); ALBUMIN 3.4 g/dL (3.5-5.0); ALKALINE PHOSPHATASE 136 IU/L (40-150); ANION GAP 12.3 mmol/L (8-16); BLOOD UREA NITROGEN 16 mg/dL (7-26); BUN/CREATININE RATIO 12 (6-25); CALCIUM 8.4 mg/dL (8.4-10.2); CARBON DIOXIDE 24 mmol/L (22-29); CHLORIDE 107 mmol/L (98-107); CREATINE KINASE 82 IU/L (29-168); CREATININE, SERUM 1.37 mg/dL (0.57-1.11); EST GLOMERULAR FILTRATION RATE 38 ML/MIN (60-); GLUCOSE 149 mg/dL (74-118); POTASSIUM 4.3 mmol/L (3.5-5.1); SODIUM 139 mmol/L (136-145)
--- NOTE | 2020-06-12 21:04 | Diagnostic Imaging Report ---
Examination: CT head without contrast Clinical Indication: ^N ^DIZZINESS ^[id number] ^2019. Technique: Transaxial noncontrast images from the skull base through the vertex were obtained. Sagittal and coronal reformatted images were done. Dose modulation, iterative reconstruction, and/or weight based adjustment of the mA/kV was utilized to reduce the radiation dose to as low as reasonably achievable. Comparison: None. Findings: Scalp: No abnormalities. Bones: Intact. No fractures. No blastic or lytic lesions. Brain sulci: Appropriate for patient's age. Ventricles: Normal in size and configuration. No hydrocephalus. . Extra-axial space: No abnormalities. Parenchyma: There are patchy areas of low-attenuation within subcortical and periventricular white matter, nonspecific, but could represent microvascular ischemic disease. No masses, hemorrhage, or acute or chronic cortical based vascular insults. Suprasellar region: No abnormalities. Craniocervical junction: The foramen magnum is patent. No Chiari one malformation. Impression: 1. No acute intracranial finding. 2. Mild chronic microvascular ischemic change. Signed by: Dr. Radha Prescott M.D. on 06/12/2020 9:01 PM
--- NOTE | 2020-06-12 21:23 | Emergency Department Note ---
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 Historian: Patient, Family Member Arrival Mode: Car Onset (how long ago): hour(s) (2) Severity: moderate Onset quality: sudden Duration (how long): hour(s) (2) Timing of current episode: constant Progression: worsening Chronicity: new Context: Denies recent illness, Denies recent surgery Relieving factors: none Exacerbating factors: none Associated symptoms: Reports nausea/vomiting Past Medical/Family History Physician Review I have reviewed the patient's past medical and family history. Any updates have been documented here. Past Medical History Recent Fever: No Clinical Suspicion of Infectio: No New/Unexplained Change in Ment: No Past Medical History: Hypertension Other Medical History: Cholangitis Past Surgical History: Cholecysctectomy Other Surgery: Liver surgery after it was punctured during cholecystectomy Social History Smoking Cessation: Never Smoker Any Illegal Drug Use: No Other Last Tetanus: UTD Review of Systems Review of Systems Constitutional: Reports no symptoms EENTM: Reports no symptoms Cardiovascular: Reports no symptoms Respiratory: Reports no symptoms Gastrointestinal: Reports as per HPI Genitourinary: Reports no symptoms Musculoskeletal: Reports no symptoms Integumentary: Reports no symptoms Neurological: Reports as per HPI Psychological: Reports no symptoms Endocrine: Reports no symptoms Hematological/Lymphatic: Reports no symptoms Physical Exam Related Data Allergies: Coded Allergies: tramadol (Verified Allergy, Intermediate, 06/08/20) codeine (Verified Allergy, Unknown, 06/16/19) hydrocodone (Verified Adverse Reaction, Severe, NAUSEA, 06/08/20) pt can take tylenol Triage Vital Signs Vital Signs Date Time Temp Pulse Resp B/P (MAP) Pulse Ox O2 Delivery O2 Flow Rate FiO2 06/12/20 19:41 98.2 81 19 151/72 100 Room Air Vital signs reviewed: Yes Physical Exam CONSTITUTIONAL Constitutional: Present well-developed, Present well-nourished; Absent distressed HENT HENT: Present normocephalic, Present atraumatic, Present oropharynx clear/moist, Present nose normal HENT L/R: Present left ext ear normal, Present right ext ear normal EYES Eyes: Reports PERRL, Reports conjunctivae normal NECK Neck: Present ROM normal PULMONARY Pulmonary: Present effort normal, Present breath sounds normal CARDIOVASCULAR Cardiovascular: Present regular rhythm, Present heart sounds normal, Present capillary refill normal, Present normal rate GASTROINTESTINAL Abdominal: Present soft, Present nontender, Present bowel sounds normal GENITOURINARY Genitourinary: Present exam deferred SKIN Skin: Present warm, Present dry MUSCULOSKELETAL Musculoskeletal: Present ROM normal NEUROLOGICAL Neurological: Present alert, Present oriented x 3, Present no gross motor or sensory deficits, Present weakness (GENERALIZED) PSYCHOLOGICAL Psychological: Present mood/affect normal, Present judgement normal Results Laboratory Result Diagram: 06/12/20195506/12/201955 Laboratory Laboratory Tests Test 06/12/20 22:23 06/12/20 19:56 Urine Color Yellow (YELLOW) Urine Clarity Clear (CLEAR) Urine pH 5.5 (5 - 7) Urine Specific [place] >=1.030 (1.010-1.025) Urine Protein Negative (NEGATIVE) Urine Glucose (UA) Negative (NEGATIVE) Urine Ketones Negative (NEGATIVE) Urine Blood Negative (NEGATIVE) Urine Nitrite Negative (NEGATIVE) Urine Bilirubin Negative (NEGATIVE) Urine Urobilinogen 0.2 mg/dL (0.2 - 1) Urine Leukocyte Esterase Negative (NEGATIVE) Urine RBC 0-5 /HPF (0-5) Urine WBC 0-5 /HPF (0-5) Urine Epithelial Cells Few /LPF (NONE) Urine Bacteria Rare /HPF (NONE) Urine Opiates Screen Negative (NEGATIVE) Urine Methadone Screen Negative (NEGATIVE) Urine Barbiturates Screen Negative (NEGATIVE) Urine Phencyclidine Screen Negative (NEGATIVE) Urine Amphetamines Screen Negative (NEGATIVE) Urine Methamphetamines Screen Negative (NEGATIVE) Urine Benzodiazepines Screen Negative (NEGATIVE) Urine Cocaine Screen Negative (NEGATIVE) Urine Cannabinoids Screen Positive (NEGATIVE) White Blood Count 5.75 x10e3/uL (4.8-10.8) Red Blood Count 4.33 x10e6/uL (3.6-5.1) Hemoglobin 11.6 g/dL (12.0-16.0) Hematocrit 38.1 % (34.2-44.1) Mean Corpuscular Volume 88.0 fL (81-99) Mean Corpuscular Hemoglobin 26.8 pg (28-32) Mean Corpuscular Hemoglobin Concent 30.4 g/dL (31-35) Red Cell Distribution Width 13.2 % (11.7-14.4) Platelet Count 223 x10e3/uL (140-360) Neutrophils (%) (Auto) 57.9 % (38.7-80.0) Lymphocytes (%) (Auto) 32.7 % (18.0-39.1) Monocytes (%) (Auto) 7.0 % (4.4-11.3) Eosinophils (%) (Auto) 1.2 % (0.0-6.0) Basophils (%) (Auto) 0.7 % (0.0-1.0) Neutrophils # (Auto) 3.3 (2.1-6.9) Lymphocytes # (Auto) 1.9 (1.0-3.2) Monocytes # (Auto) 0.4 (0.2-0.8) Eosinophils # (Auto) 0.1 (0.0-0.4) Basophils # (Auto) 0.0 (0.0-0.1) Absolute Immature Granulocyte (auto 0.03 x10e3/uL (0-0.1) Sodium Level 139 mmol/L (136-145) Potassium Level 4.3 mmol/L (3.5-5.1) Chloride Level 107 mmol/L (98-107) Carbon Dioxide Level 24 mmol/L (22-29) Anion Gap 12.3 mmol/L (8-16) Blood Urea Nitrogen 16 mg/dL (7-26) Creatinine 1.37 mg/dL (0.57-1.11) Estimat Glomerular Filtration Rate 38 ML/MIN (60-) BUN/Creatinine Ratio 12 (6-25) Glucose Level 149 mg/dL (74-118) Calcium Level 8.4 mg/dL (8.4-10.2) Total Bilirubin 0.2 mg/dL (0.2-1.2) Aspartate Amino Transf (AST/SGOT) 19 IU/L (5-34) Alanine Aminotransferase (ALT/SGPT) 16 IU/L (0-55) Alkaline Phosphatase 136 IU/L (40-150) Creatine Kinase 82 IU/L (29-168) Creatine Kinase MB 1.90 ng/mL (0-5.0) Troponin I < 0.001 ng/mL (0-0.300) Total Protein 6.9 g/dL (6.5-8.1) Albumin 3.4 g/dL (3.5-5.0) Globulin 3.5 g/dL (2.3-3.5) Albumin/Globulin Ratio 1.0 (0.8-2.0) Laboratory Tests Test 06/12/20 19:56 White Blood Count 5.75 x10e3/uL (4.8-10.8) Red Blood Count 4.33 x10e6/uL (3.6-5.1) Hemoglobin 11.6 g/dL (12.0-16.0) Hematocrit 38.1 % (34.2-44.1) Mean Corpuscular Volume 88.0 fL (81-99) Mean Corpuscular Hemoglobin 26.8 pg (28-32) Mean Corpuscular Hemoglobin Concent 30.4 g/dL (31-35) Red Cell Distribution Width 13.2 % (11.7-14.4) Platelet Count 223 x10e3/uL (140-360) Neutrophils (%) (Auto) 57.9 % (38.7-80.0) Lymphocytes (%) (Auto) 32.7 % (18.0-39.1) Monocytes (%) (Auto) 7.0 % (4.4-11.3) Eosinophils (%) (Auto) 1.2 % (0.0-6.0) Basophils (%) (Auto) 0.7 % (0.0-1.0) Neutrophils # (Auto) 3.3 (2.1-6.9) Lymphocytes # (Auto) 1.9 (1.0-3.2) Monocytes # (Auto) 0.4 (0.2-0.8) Eosinophils # (Auto) 0.1 (0.0-0.4) Basophils # (Auto) 0.0 (0.0-0.1) Absolute Immature Granulocyte (auto 0.03 x10e3/uL (0-0.1) Sodium Level 139 mmol/L (136-145) Potassium Level 4.3 mmol/L (3.5-5.1) Chloride Level 107 mmol/L (98-107) Carbon Dioxide Level 24 mmol/L (22-29) Anion Gap 12.3 mmol/L (8-16) Blood Urea Nitrogen 16 mg/dL (7-26) Creatinine 1.37 mg/dL (0.57-1.11) Estimat Glomerular Filtration Rate 38 ML/MIN (60-) BUN/Creatinine Ratio 12 (6-25) Glucose Level 149 mg/dL (74-118) Calcium Level 8.4 mg/dL (8.4-10.2) Total Bilirubin 0.2 mg/dL (0.2-1.2) Aspartate Amino Transf (AST/SGOT) 19 IU/L (5-34) Alanine Aminotransferase (ALT/SGPT) 16 IU/L (0-55) Alkaline Phosphatase 136 IU/L (40-150) Creatine Kinase 82 IU/L (29-168) Creatine Kinase MB 1.90 ng/mL (0-5.0) Troponin I < 0.001 ng/mL (0-0.300) Total Protein 6.9 g/dL (6.5-8.1) Albumin 3.4 g/dL (3.5-5.0) Globulin 3.5 g/dL (2.3-3.5) Albumin/Globulin Ratio 1.0 (0.8-2.0) Lab results reviewed: Yes Imaging Imaging results reviewed: Yes Impressions Procedure: [id number] CT/CT BRAIN WO Exam Date: 06/12/20 Exam Time: 2019 REPORT STATUS: Signed Examination: CT head without contrast Clinical Indication: ^N ^DIZZINESS ^[id number] ^2019. Technique: Transaxial noncontrast images from the skull base through the vertex were obtained. Sagittal and coronal reformatted images were done. Dose modulation, iterative reconstruction, and/or weight based adjustment of the mA/kV was utilized to reduce the radiation dose to as low as reasonably achievable. Comparison: None. Findings: Scalp: No abnormalities. Bones: Intact. No fractures. No blastic or lytic lesions. Brain sulci: Appropriate for patient's age. Ventricles: Normal in size and configuration. No hydrocephalus. . Extra-axial space: No abnormalities. Parenchyma: There are patchy areas of low-attenuation within subcortical and periventricular white matter, nonspecific, but could represent microvascular ischemic disease. No masses, hemorrhage, or acute or chronic cortical based vascular insults. Suprasellar region: No abnormalities. Craniocervical junction: The foramen magnum is patent. No Chiari one malformation. Impression: 1. No acute intracranial finding. 2. Mild chronic microvascular ischemic change. Signed by: Dr. Radha Prescott M.D. on 06/12/2020 9:01 PM Dictated By: RADHA HERNANDEZ MD 00 Transcribed By: DERRICK on 06/12/202100 COPY TO: ELIZABETH COLIN MD~ Procedure: [id number] DX/CHEST SINGLE (PORTABLE) Exam Date: 06/12/20 Exam Time: 1999 REPORT STATUS: Signed EXAMINATION: CHEST SINGLE (PORTABLE) INDICATION: ^DIZZINESS, NAUSEA ^20200612 ^1999 COMPARISON: Chest x-ray on 06/30/2019. FINDINGS: TUBES and LINES: None. LUNGS: Normal lung volumes. There is bilateral hilar prominence, however this is unchanged from prior examination. There is bibasilar atelectasis. No focal consolidations. PLEURA: No pleural effusion or pneumothorax. HEART AND MEDIASTINUM: The cardiomediastinal silhouette is unremarkable. BONES AND SOFT TISSUES: No acute osseous lesion. Soft tissues are unremarkable. UPPER ABDOMEN: No free air under the diaphragm. IMPRESSION: 1. Bilateral hilar prominence, unchanged from prior examinations. This may represent chronic hilar adenopathy. 2. No focal consolidation, pleural effusion or pneumothorax. No pulmonary edema. Signed by: Dion Machuca MD on 06/12/2020 9:26 PM Dictated By: DION MACHUCA MD 25 Transcribed By: DERRICK on 06/12/202125 COPY TO: ELIZABETH COLIN MD~ Procedures 12 Lead ECG Interpretation ECG Interpretation : ECG: ECG 1 Senior Credit Analyst: Interpreted by ED physician Date: Jun 12, 2020 Time: 19:51 Rhythm: sinus rhythm Rate: normal BPM: 71 QRS axis: normal ST segments normal: Yes T waves normal: Yes Other findings: no other findings Clinical Impression: normal ECG Assessment & Plan Medical Decision Making [facility] PT WITH WEAKNESS, N/V CBC, CMP, EKG, CARDIAC ENZYMES, CT BRAIN ,UDS, UA ORDERED TO EVAL FOR MYOCARDIAL INFARCTION, POSSIBLE INGESTION OF THC, INTRACRANIAL ABNORMALITY, UTI, ELECTROLYTE ABNORMALITY Reassessment Reassessment time: 05:01 Reassessment pt feels much better and is ambulatory without assistance Assessment & Plan Final Impression: (1) Drug ingestion, accidental (2) Use of cannabinoid edibles Depart Disposition: HOME, SELF-CARE Last Vital Signs Date Time Temp Pulse Resp B/P (MAP) Pulse Ox O2 Delivery O2 Flow Rate FiO2 06/12/20 19:41 98.2 81 19 151/72 100 Room Air Home Meds Active Scripts Sulfamethoxazole/Trimethoprim (BACTRIM DS TABLET) 1 Each Tablet, 1 TAB PO Q12H, #20 TAB Prov:BRITNI RUIZ 06/08/20 Nitrofurantoin Macrocrystal (NITROFURANTOIN) 100 Mg Capsule, 100 MG PO Q12H, #20 TAB Prov:BRITNI RUIZ 06/08/20 Promethazine Hcl* (PHENERGAN SUPP*) 25 Mg Supp, 25 MG CA Q4HR PRN for NAUSEA AND VOMITING, #30 SUPP.RECT take after zofran to control nausea/vomiting if need be Prov:BRITNI RUIZ 06/08/20 Ondansetron (ONDANSETRON ODT) 8 Mg Tab.rapdis, 4 MG PO Q4HR PRN for NAUSEA AND VOMITING, #30 TAB Prov:BRITNI RUIZ 06/08/20 Reported Medications Omeprazole (OMEPRAZOLE) 40 Mg Capsule.dr, 40 MG PO DAILY 06/17/19 Enalapril Maleate (ENALAPRIL MALEATE) 20 Mg Tablet, 20 MG PO BID 06/17/19 Medications in the ED Ondansetron HCl 4 mg STK-MED ONCE .ROUTE ; Start 06/12/20 at 19:54; Stop 06/12/20 at 19:47; Status DC Ondansetron HCl 4 mg ONCE ONCE PO Last administered on 06/12/20at 19:49; Admin Dose 4 MG; Start 06/12/20 at 20:00; Stop 06/12/20 at 20:01; Status DC ELIZABETH COLIN MD Jun 12, 2020 21:23
--- NOTE | 2020-06-12 21:29 | Diagnostic Imaging Report ---
EXAMINATION: CHEST SINGLE (PORTABLE) INDICATION: ^DIZZINESS, NAUSEA ^20200612 ^1999 COMPARISON: Chest x-ray on 06/30/2019. FINDINGS: TUBES and LINES: None. LUNGS: Normal lung volumes. There is bilateral hilar prominence, however this is unchanged from prior examination. There is bibasilar atelectasis. No focal consolidations. PLEURA: No pleural effusion or pneumothorax. HEART AND MEDIASTINUM: The cardiomediastinal silhouette is unremarkable. BONES AND SOFT TISSUES: No acute osseous lesion. Soft tissues are unremarkable. UPPER ABDOMEN: No free air under the diaphragm. IMPRESSION: 1. Bilateral hilar prominence, unchanged from prior examinations. This may represent chronic hilar adenopathy. 2. No focal consolidation, pleural effusion or pneumothorax. No pulmonary edema. Signed by: Home Michelle MD on 06/12/2020 9:26 PM
[2020-06-12] MEDS ORDERED: SODIUM CHLORIDE 0.9% 1000ML 1,000 ML IV ONE (21:30)
[2020-06-12 22:34] LABS: COLOR,URINE YELLOW (YELLOW)
[2020-06-12 22:35] LABS: CLARITY,URINE CLEAR (CLEAR); LEUKOCYTE ESTERASE ,URINE NEGATIVE (NEGATIVE); NITRITE,URINE NEGATIVE (NEGATIVE); PROTEIN,URINE DIPSTICK NEGATIVE (NEGATIVE)
[2020-06-12 22:36] LABS: BACTERIA,URINE RARE /HPF; BILIRUBIN,URINE NEGATIVE (NEGATIVE); EPITHELIAL CELLS,URINE FEW /LPF; KETONES,URINE NEGATIVE (NEGATIVE); RBC,URINE 0-5 /HPF (0-5); URINE UROBILINOGEN 0.2 mg/dL (0.2 - 1); WBC,URINE (MAN) 0-5 /HPF (0-5)
[2020-06-12 22:37] LABS: AMPHETAMINES SCREEN,URINE NEGATIVE (NEGATIVE); PHENCYCLIDINE SCREEN,URINE NEGATIVE (NEGATIVE)
[2020-06-12 22:38] LABS: BENZODIAZEPINES SCREEN,URINE NEGATIVE (NEGATIVE)
--- OUTSIDE RECORDS SUMMARY | 2020-06-12 22:49 | XMS REPORT | Clinical Summary ---
Author Author ROSS [facility] Address Unknown Phone Unavailable Care Team Providers Care Mines Safety Engineer Name Role Phone Reg Liriano DO PCP [...] History of common bile duct surgery 01/08/2020 [facility] General Internal Me dicine - Encounter 01/11/2020 after 06/12/2019 Social History Date Tobacco Use Types Packs/Day [...] 65+ YRS (1 2013 of 1 - [id number]) Medicare IPPE (WELCOME TO 07/26/2019 MEDICARE) [...] Routine 01/09/2020 DIFFERENTIAL 5:36 AM CDT after 06/12/2019 Results * EKG-SCANNED (01/12/2020 2:20 PM CDT) Narrative Performed At This result has an attachment that is n ot available. * CBC with platelet count + automated diff (01/11/2020 5:43 AM CDT) Only the most recent of 3 results within the time period is included. WBC 5.7 3.5 - 10.5 K/L [facility] RBC 4.01 3.93 - 5.22 M/L [facility] Hemoglobin 10.8 (L) 11.2 - 15.7 GM/DL [facility] Hematocrit 35.0 34.1 - 44.9 % [facility] MCV 87.3 79.4 - 94.8 fL [facility] MCH 26.9 25.6 - 32.2 pg [facility] MCHC 30.9 (L) 32.2 - 35.5 GM/DL [facility] RDW 12.6 11.7 - 14.4 % [facility] Platelets 301 150 - 450 K/CU MM [facility] MPV 10.2 9.4 - 12.3 fL [facility] nRBC 0 0 - 0 /100 WBC [facility] % Neutros 64 % [facility] % Lymphs 20 % [facility] % Monos 11 % [facility] % Eos 4 % [facility] % Baso 1 % [facility] # Neutros 3.68 1.56 - 6.13 K/L [facility] # Lymphs 1.12 (L) 1.18 - 3.74 K/L [facility] # Monos 0.60 (H) 0.24 - 0.36 K/L [facility] # Eos 0.22 0.04 - 0.36 K/L [facility] # Baso 0.07 0.01 - 0.08 K/L [facility] Immature 1 0 - 1 % [facility] Specimen Blood Performing Organization Address City/[facility]/Zipcode Ph one Number [facility] [address] [place], [place] [address] [facility] * Basic Metabolic Panel (01/11/2020 5:43 AM CDT) Only the most recent of 3 results within the time period is included. Sodium 142 136 - 145 meq/L [facility] Potassium 3.7 3.5 - 5.1 meq/L [facility] Chloride 105 98 - 107 meq/L [facility] CO2 27 22 - 29 meq/L [facility] BUN 7 7 - 21 mg/dL [facility] Creatinine 0.83 0.57 - 1.25 mg/dL [facility] Glucose 89 70 - 105 mg/dL [facility] Calcium 8.8 8.4 - 10.2 mg/dL [facility] EGFR 68Comment: ESTIMATED GFR IS mL/min/1.73 sq m [facility] NOT ACCURATE CREATININE [facility] CLEARANCE IN PREDICTING [facility] GLOMERULAR FILTRATION RATE. ESTIMATED GFR IS NOT APPLICABLE FOR DIALYSIS PATIENTS. Specimen Blood Narrative Performed At Assistant Public Defender ID - YOLANDA Marsh [facility] Performing Organization Address City/State/Zipcode Ph one Number [facility] [address] [place], [place] [address] [facility] after 06/12/2019 Insurance Type Payer Benefit Subscriber ID Effective Phone Address Plan / Dates Group [facility] - AARP/MEDIC [id number] [id number] MEDICARE MGD CARE ARE resent COMPLETE
--- OUTSIDE RECORDS SUMMARY | 2020-06-12 22:50 | XMS REPORT | Continuity of Care Document ---
Author Author [facility] t Organization [facility] Address 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 Role Phone DO JOSHUA DIETRICH PCP Vahe COLIN Attphys Unavailable Kota Alston MD Attphys [phone] Andrzej Rudd MD Attphys [phone] Vahe RUIZ Attphys Unavailable KOTA ALSTON Attphys Unavailable PATRIA HOYOS Attphys Unavailable YUSRA SCHULTZ Attphys Unavailable ANDRZEJ RUDD JESSI Admphys Unavailable YUSRA SCHULTZ Admphys Unavailable Payers Payer Name Policy Type Policy Number Effective Date Expiration Date Mau dae [facility] Medicare Complete [id number] 2018 00:00:00 2018 00:00:00 [facility] - MEDICARE MGD CAREAAR P/MEDICARE [id number] 2019-Present [id number] 2019 00:00:00 [facility] Problems Condition Name Condition Details Condition Category Status Onset Date Resolution Date Last Treatment Date Treating Clinician Comments Source Acute diverticulitis Acute diverticulitis Disease Active 00:00:00 [facility] Pyelonephritis Pyelonephritis Problem Active [facility] Diverticulitis of large intestine with perforation Problem Active [facility] Nausea Problem Active [facility] Urinary tract infection Problem Active [facility] Allergies, Adverse Reactions, Alerts Allergy Name Allergy Type Status Severity Reaction(s) Onset Date Inacti ve Date Treating Clinician Comments Source Hydrocodone Propensity to adverse reactions Active Severe DORINDA SEA 2020-06-08 00:00:00 [facility] Tramadol Allergy to substance Active Moderate 2020-06-08 00:00:00 [facility] Codeine Allergy to substance Active 2019 00:00:00 [facility] Social History Social Habit Start Date Stop Date Quantity Comments Source Sex Assigned At [facility] Medications Ordered Medication Name Filled Medication Name Start Date Stop Da te Current Medication? Ordering Clinician Indication Dosage Frequency Signature (SIG) Comments Components Source Sulfamethoxazole/Trimethoprim (Bactrim Ds Tablet) 1 Ea ch TABLET Sulfamethoxazole/Trimethoprim (Bactrim Ds Tablet) 1 Each TABLET 2020-06-08 11:32:00 Yes 1 Every 12 Hours [facility] Nitrofurantoin Macrocrystal (Nitrofurantoin) 100 Mg CA PSULE Nitrofurantoin Macrocrystal (Nitrofurantoin) 100 Mg CAPSULE 2020-06-08 11:06:00 Yes 100 Every 12 Hours [facility] Ondansetron (Ondansetron Odt) 8 Mg [facility] Ondanset larisa (Ondansetron Odt) 8 Mg TAB.RAPDIS 2020-06-08 11:06:00 Yes 4 E very 4 Hours as needed for Nausea And Vomiting [facility] Promethazine Hcl (Phenergan Supp*) 25 Mg SUPP Prometha zine Hcl (Phenergan Supp*) 25 Mg SUPP 2020-06-08 11:06:00 Yes 25 E very 4 Hours as needed for Nausea And Vomiting [facility] enalapril (VASOTEC) 20 MG tablet 2020-01-11 15:40:04 Yes Twice A Day [facility] cyclobenzaprine (FLEXERIL) 10 MG tablet 00:00:00 2020-01-21 23:59:00 No 10mg Take 1 tablet (10 mg total) by mouth 3 (three) times daily as needed for Muscle spasms for up to 10 days. [facility] loperamide (IMODIUM) 2 mg capsule 2020-01-11 00:00:00 2019 23:59:00 No 2mg Take 1 capsule ( 2 mg total) by mouth 4 (four) times daily as needed for Diarrhea for up to 10 days. [facility] ciprofloxacin HCl (CIPRO) 500 MG tablet 00:00:00 2020-01-18 23:59:00 No 500mg Q.5D Take 1 tablet (500 mg total) by mouth 2 (two) times daily for 7 days. [facility] Meropenem (Merrem) 1 Gm INJ Meropenem (Merrem) 1 Gm INJ 05:41:00 2019-12-21 00:00:00 No 1 Every 12 Hours [facility] esomeprazole (NEXIUM) 20 MG capsule 2013-04-05 00:00:00 Yes 20mg Take 20 mg by mouth. [facility] Enalapril Maleate Enalapril Maleate Yes 20 Twic e A Day [facility] Omeprazole Omeprazole Yes 40 Daily [facility] Acetaminophen (Tylenol) 325 Mg CAPSULE Acetaminophen (Tylenol) 3 25 Mg CAPSULE 2020-01-08 00:00:00 No 650 Daily [facility] Gabapentin Gabapentin 2020-01-08 00:00:00 No 100 As Needed [facility] Nitrofurantoin Macrocrystal (Nitrofurantoin) 100 Mg CA PSULE Nitrofurantoin Macrocrystal (Nitrofurantoin) 100 Mg CAPSULE 2020-01-08 00:00:00 No 100 Every 12 Hours [facility] Vital Signs Vital Name Observation Time Observation Value Comments Source Body Temperature 2020-06-08 11:26:00 101.0 [degF] [facility] Heart Rate 2020-06-08 11:26:00 80 /min [facility] Respiratory rate 2020-06-08 11:26:00 16 /min [facility] BP Systolic 2020-06-08 11:26:00 106 mm[Hg] [facility] BP Diastolic 2020-06-08 11:26:00 67 mm[Hg] [facility] Oxygen saturation by Pulse oximetry 2020-06-08 11:26:00 99 /min [facility] Weight 2020-06-08 10:04:00 185.25 [lb_av] [facility] BMI (Body Mass Index) 2020-06-08 10:04:00 29.0 kg/m2 [facility] Systolic blood pressure 2020-01-11 12:00:00 143 mm[Hg] [facility] Diastolic blood pressure 2020-01-11 12:00:00 73 mm[Hg] [facility] Heart rate 2020-01-11 12:00:00 77 /min [facility] Body temperature 2020-01-11 12:00:00 35.78 Linda [facility] Respiratory rate 2020-01-11 12:00:00 18 /min [facility] Oxygen saturation in Arterial blood by Pulse oximetry 01-10 12:00:00 94 [facility] 2020-01-08 23:00:00 167.6 cm [facility] Body weight 2020-01-08 23:00:00 76.204 kg [facility] BMI 2020-01-08 23:00:00 27.12 kg/m2 [facility] Weight 2020-01-08 16:00:00 186.50 [lb_av] [facility] BMI (Body Mass Index) 2020-01-08 16:00:00 30.1 kg/m2 [facility] Body Temperature 2019-12-27 09:42:00 98.3 [degF] [facility] Procedures Procedure Date / Time Performed Performing Clinician [facility] e REPORT OF PROCEDURE - ENDOSCOPY SCAN 2020-01-12 14:20:49 Pro vider, Default Scanning [facility] BASIC METABOLIC PANEL (7) 2020-01-11 05:43:00 Romulo Marie [facility] CBC W/PLT COUNT & AUTO DIFFERENTIAL 2020-01-11 05:43:00 Romulo Marie [facility] BASIC METABOLIC PANEL (7) 2020-01-10 05:37:00 Romulo Marie [facility] CBC W/PLT COUNT & AUTO DIFFERENTIAL 2020-01-10 05:37:00 Romulo Marie [facility] BASIC METABOLIC PANEL (7) 2020-01-09 05:36:00 Romulo Marie [facility] CBC W/PLT COUNT & AUTO DIFFERENTIAL 2020-01-09 05:36:00 Romulo Marie [facility] EMERGENCY DEPT VISIT 2020-01-08 00:00:00 [facility] EGD BIOPSY SINGLE/MULTIPLE 2019-12-27 00:00:00 [facility] COLONOSCOPY W/LESION REMOVAL 2019-12-27 00:00:00 [facility] Plan of Care Planned Activity Planned Date Details Comments Source Future Scheduled Test 2020-03-26 00:00:00 INFLUENZA VACCINE (#1) [code = INFLUENZA VACCINE (#1)] [facility] Future Scheduled Test 2019-07-26 00:00:00 Medicare IPPE (WEL COME TO MEDICARE) [code = Medicare IPPE (WELCOME TO MEDICARE)] [facility] Future Scheduled Test 2013 00:00:00 PNEUMOCOCCAL 65+ Y RS (1 of 1 - [id number] PCV13) [code = PNEUMOCOCCAL 65+ YRS (1 of 1 - [id number] PCV13)] [facility] Future Scheduled Test 1950 00:00:00 Screening for ling gnant neoplasm of breast (procedure) [code = 775796387] [facility] Future Scheduled Test 1950 00:00:00 Screening for ling gnant neoplasm of colon (procedure) [code = 796194119] [facility] dical [place] Instructions Urinary Tract Infection - Women [facility] Encounters Start Date/Time End Date/Time Encounter Type Admission Type [facility] Care Department Encounter ID Source 2020-06-08 10:19:00 2020-06-08 11:39:00 Departed Emergency Room [facility] [id number] [facility] 2020-01-08 16:55:00 2020-01-08 21:43:00 Departed Emergency Room 1 BRITNI RUIZ [facility] [id number] [facility] 2019-12-27 07:33:00 2019-12-27 07:33:00 Registered Surgical Day Care [facility] [id number] [facility] 2019-06-30 17:56:00 2019-06-30 22:18:00 Departed Emergency Room 1 PATRIA HOYOS [facility] [id number] [facility] 2019-06-19 09:46:00 2019-06-20 17:05:00 Discharged Inpatient 1 YUSRA SCHULTZ [facility] [id number] [facility] 2019-05-04 10:51:00 2019-05-04 13:42:00 Departed Emergency Room [facility] [id number] [facility] Results Test Description Test Time Test Comments Results Result Comments Source CHEST SINGLE (PORTABLE) 2020-06-12 21:23:[facility] 1950 Sex: F [place] [address] Patient Name: RAVI CARRANZA MR #: [id number] : 1950 Age/Sex: 69/F Req #: [id number] Adm Physician: Ordered by: ELIZABETH COLIN MD Report #: [id number] Location: ER Room/Bed: Procedure: [id number] DX/CHEST SINGLE (PORTABLE) Exam Date: 06/12/20 Exam Time: 1999 REPORT STATUS: Signed EXAMINATION: CHEST SINGLE (KOKO BLE) INDICATION: DIZZINESS, NAUSEA 20200612 COMPARISON: Chest x-ray on 06/30/2019. FINDINGS: TUBES and LINES: None. LUNGS: Normal lung volumes. There is bilateral hilar prominence, however this is unchanged from prior examination. There is bibasilar atelectasis. No focal consolidations. PLEURA: No pleural effusion or pneumothorax. HEART AND MEDIASTINUM: The cardiomediastinal silhouette is unremarkable. BONES AND SOFT TISSUES: No acute osseous lesion. Soft tissues are unremarkable. UPPER ABDOMEN: No free air under the diaphragm. IMPRESSION: 1. Bilateral hilar prominence, unchanged from prior examinations. This may represent chronic hilar adenopathy. 2. No focal consolidation, pleural effusion or pneumothorax. No pulmonary edema. Signed by: Dion Mcahuca MD on 06/12/2020 9:26 PM Dictated By: DION MACHUCA MD 25 Transcribed By: DERRICK on 06/12/202125 COPY TO: ELIZABETH COLIN MD CT BRAIN WO 2020-06-12 20:59:[address] [facility] : 1950 Sex: F [place] [address] Patient Name: RAVI CARRANZA MR #: [id number] : 1950 Age/Sex: 69/F Req #: [id number] Adm Physician: Ordered by: ELIZABETH COLIN MD Report #: [id number] Location: ER Room/Bed: Procedure: [id number] CT/CT BRAIN WO Exam Date: 06/12/20 Exam Time: 2019 REPORT STATUS: Signed Examination: CT head without contrast Clinical Indication: N DIZZINESS [id number] 2019. Technique: Transaxial noncontrast images from the skull base through the vertex were obtained. Sagittal and coronal reformatted images were done. Dose modulation, iterative reconstruction, and/or weight based adjustment of the mA/kV was utilized to reduce the radiation dose to as low as reasonably achievable. Comparison: None. Findings: Scalp: No abnormalities. Bones: Intact. No fractures. No blastic or lytic lesions. Brain sulci: Appropriate for patient's age. Ventricles: Normal in size and configuration. No hydrocepha gabriela. . Extra-axial space: No abnormalities. Parenchyma: There are patchy areas of low-attenuation within subcortical and periventricular white matter, nonspecific, but could represent microvascular ischemic disease. No masses, hemorrhage, or acute or chronic cortical based vascular insults. Suprasellar region: No abnormalities. Craniocervical junction: The foramen magnum is patent. No Chiari one malformation. Impression: 1. No acute intracranial finding. 2. Mild chronic microvascular ischemic change. Signed by: Dr. Enrique Prescott M.D. on 06/12/2020 9:01 PM Dictated By: ENRIQUE HERNANDEZ MD 00 Transcribed By: DERRICK on 06/12/202100 COPY TO: ELIZABETH COLIN MD Basic Metabolic Panel 2020-01-11 07:04:00 Test Item Sodium (test code = 2951-2) 142 meq/L 136-145 Potassium (test code = 2823-3) 3.7 meq/L 3.5-5.1 Chloride (test code = 2075-0) 105 meq/L 98-107 CO2 (test code = 8-9) 27 meq/L 22-29 BUN (test code = 3094-0) 7 mg/dL 7-21 Creatinine (test code = 2160-0) 0.83 mg/dL 0.57-1.25 Glucose (test code = 2345-7) 89 mg/dL 70-105 Calcium (test code = 56425-1) 8.8 mg/dL 8.4-10.2 EGFR (test code = 16545-3) 68 mL/min/1.73 sq m ESTIMATED GFR IS NOT ACCURATE CREATININE CLEARANCE IN PREDICTING GLOMERULAR FILTRATION RATE. ESTIMATED GFR IS NOT APPLICABLE FOR DIALYSIS PATIENTS. NA (test code = NA) Boat Motor Mechanic ID - YOLANDA [place] [facility] METABOLIC [id number] 07:04:00* Test Item Value Reference Range Interpretation [...] GFR IS NOT APPLICABLE FOR DIALYSIS PATIENTS. Boat Motor Mechanic ID - YOLANDA CCBC with platelet count + automated [id number] 06:23:00* Test Item Value Reference Range Interpretation [...] 450 K/CU MM MPV (test code = 27382-2) 10.2 fL 9.4-12.3 nRBC (test code = [...] % 0-1 Lab Interpretation (test code = 84899-0) Abnormal [facility] W/PLT COUNT & AUTO [id number] 06:23:00* Test Item Value Reference Range Interpretation [...] = 2801) 1 % 0-1 BASIC METABOLIC [id number] 06:18:00* Test Item Value Reference Range Interpretation [...] GFR IS NOT APPLICABLE FOR DIALYSIS PATIENTS. Boat Motor Mechanic ID - PIAYA LCBC W/PLT COUNT & AUTO [id number] 05:55:00* Test Item Value Reference Range Interpretation [...] = 2801) 1 % 0-1 BASIC METABOLIC [id number] 06:19:00* Test Item Value Reference Range Interpretation [...] GFR IS NOT APPLICABLE FOR DIALYSIS PATIENTS. Boat Motor Mechanic ID - GIRISH WCBC W/PLT COUNT & AUTO [id number] 05:57:00* Test Item Value Reference Range Interpretation [...] (test code = 2801) 1 % 0-1 Troponin I measurement by highly sensitive enzyme xjqayxvutkh6273-82-52 18:03:00 * Test Item Value Reference Range Interpretation Comments Troponin I (test code = 82832-0) 0.002 ng/mL 0-0.300 [facility] [id number] 17:43:00 [facility] [address] [place] [address] Patient Name: RAVI CARRANZA MR #: [id number] : 1950 Age/Sex: 69/F Req #: [id number] Adm Physician: Ordered by: BRITNI RUIZ Report #: [id number] Location: [facility] Room/Bed: Procedure: HOPD/CT ABD /PEL WITH CONTRAST-HOPD Exam Date: [...] TO: BRITNI RUIZ CXR 2 VIEW - [id number] 17:42:00 [place] [address] Patient Name: RAVI CARRANZA MR #: [id number] : 1950 Age/Sex: 69/F Req #: [id number] Adm Physician: Ordered by: BRITNI RUIZ Report #: [id number] Location: [facility] Room/Bed: Procedure: [id number] HOPD/CXR 2 VIEW - HOPD Exam Date: [...] Troponin I measurement by highly sensitive enzyme dtbyrhfzgdg9607-22-68 17:03:00 * Test Item Value Reference Range Interpretation Comments Troponin I (test code = 19936-7) 0.002 0-0.300 [facility] procedure less than one hour gzlshqaz6424-72-29 14:15:00* Test Item Value Reference Range Interpretation Comments [...] complexity tests.Testing performed by [facility] [address] [phone] Director: Jaime Evans M.D.IA # [id number] [facility]ann [facility] HospitalBlm[facility] leukocytes automated count (number/volume)2019-12-22 13:45:00* Test Item Value Reference Range Interpretation Comments White Blood Count (test code = 6690-2) 8.48 10*3/uL 4.8-10.8 [facility] erythrocytes automated count (number/volume)2019-12-22 13:45:00* Test Item Value Reference Range Interpretation Comments Red Blood Count (test code = 789-8) 4.20 10*6/mL 3.6-5.1 [facility] HospitalBlood hemoglobin measurement (moles/volume)2019-12-22 13:45:00* Test Item Value Reference Range Interpretation Comments Hemoglobin (test code = 17059-4) 11.3 g/dL 12.0-16.0 [facility] HospitalAutomated blood hematocrit (volume fraction)2019-12-22 13:45:00* Test Item Value Reference Range Interpretation Comments Hematocrit (test code = 4544-3) 36.8 % 34.2-44.1 [facility] HospitalAutomated erythrocyte mean corpuscular qwyqru9247-11-35 13:45:00* Test Item Value Reference Range Interpretation Comments Mean Corpuscular Volume (test code = 787-2) 87.6 81-99 [facility] HospitalAutomated erythrocyte mean corpuscular hemoglobin (mass per erythrocyte)2019-12-22 13:45:00* Test Item Value Reference Range Interpretation Comments Mean Corpuscular Hemoglobin (test code = 785-6) 26.9 pg 28-32 [facility] HospitalAutomated erythrocyte mean corpuscular hemoglobin concentration measurement (mass/volume)2019-12-22 13:45:00* Test Item Value Reference Range Interpretation Comments Mean Corpuscular Hemoglobin Concent (test code = 786-4) 30.7 g/dL 31-35 [facility] HospitalRDW XfdJv-Nls6148-33-29 13:45:00* Test Item Value Reference Range Interpretation Comments Red Cell Distribution Width (test code = 14856-3) 13.5 % 11.7 -14.4 [facility] HospitalAutvidant pungo hospitaled blood platelet count (count/volume)2019-12-22 13:45:00* Test Item Value Reference Range Interpretation Comments Platelet Count (test code = 777-3) 307 10*3/uL 140-360 [facility] HospitalAutvidant pungo hospitaled blood segmented neutrophil count as percentage of total ughcjypdlq8060-73-30 13:45:00* Test Item Value Reference Range Interpretation Comments Neutrophils (%) (Auto) (test code = 82392-7) 66.8 % 38.7-80.0 [facility] HospitalAutvidant p[facility] hospitaled blood lymphocyte count as percentage ot total ykzhfssqsn8284-94-40 13:45:00* Test Item Value Reference Range Interpretation Comments Lymphocytes (%) (Auto) (test code = 736-9) 19.7 % 18.0-39.1 [facility] HospitalAutomated blood monocyte count as percentage of total wqynswofql5783-41-71 13:45:00* Test Item Value Reference Range Interpretation Comments Monocytes (%) (Auto) (test code = 5905-5) 7.9 % 4.4-11.3 [facility] HospitalAutomated blood eosinophil count as percentage of total ljnfclqnhk3855-25-82 13:45:00* Test Item Value Reference Range Interpretation Comments Eosinophils (%) (Auto) (test code = 713-8) 3.7 % 0.0-6.0 [facility] HospitalAutomated blood basophil count as percentage of total gjujmnmbxs1044-74-39 13:45:00* Test Item Value Reference Range Interpretation Comments Basophils (%) (Auto) (test code = 706-2) 1.3 % 0.0-1.0 [facility] HospitalFluoroscopic procedure less than one hour depmixjv5960-74-99 13:45:00* Test Item Value Reference Range Interpretation Comments IM GRANULOCYTES % (test code = IM GRANULOCYTES %) 0.6 % 0.0- 1.0 [facility] HospitalAutomated blood neutrophil count 2019-12-22 13:45:00* Test Item Value Reference Range Interpretation Comments Neutrophils # (Auto) (test code = 751-8) 5.7 2.1-6.9 [facility] HospitalBlood lymphocytes count (number/volume) 2019-12-22 13:45:00* Test Item Value Reference Range Interpretation Comments Lymphocytes # (Auto) (test code = 24008-9) 1.7 1.0-3.2 [facility] HospitalBlood monocytes automated count (number/volume)2019-12-22 13:45:00* Test Item Value Reference Range Interpretation Comments Monocytes # (Auto) (test code = 742-7) 0.7 0.2-0.8 [facility] HospitalAutomated blood eosinophil count 2019-12-22 13:45:00* Test Item Value Reference Range Interpretation Comments Eosinophils # (Auto) (test code = 711-2) 0.3 0.0-0.4 [facility] HospitalAutomated blood basophil count (count/volume)2019-12-22 13:45:00* Test Item Value Reference Range Interpretation Comments Basophils # (Auto) (test code = 704-7) 0.1 0.0-0.1 [facility] HospitalFluoroscopic procedure less than one hour ofarwpil3521-01-73 13:45:00* Test Item Value Reference Range Interpretation Comments Absolute Immature Granulocyte (auto (wilfrid t code = Absolute Immature Granulocyte (auto) 0.05 10*3/uL 0-0.[address] [facility] than one hour ktsrluds9761-43-85 13:15:00* Test Item Value Reference Range Interpretation [...] for the duration of the declaration that rcumstances exist justifying the authorization of emergency [...] complexity tests.Testing performed by [facility] [id number] [place] [address] [phone] Director: Jaime Evans M.D.CLIA # [id number] Hermann Cyp[facility] HospitalBlm[facility] center leukocytes automated count (number/volume)2019-12-22 12:45:00* Test Item Value Reference Range Interpretation Comments White Blood Count (test code = 6690-2) 8.48 4.8-10.8 [facility] erythrocytes automated count (number/volume)2019-12-22 12:45:00* Test Item Value Reference Range Interpretation Comments Red Blood Count (test code = 789-8) 4.20 3.6-5.1 [facility] HospitalBlood hemoglobin measurement (moles/volume)2019-12-22 12:45:00* Test Item Value Reference Range Interpretation Comments Hemoglobin (test code = 07739-2) 11.3 12.0-16.0 [facility] HospitalAutomated blood hematocrit (volume fraction)2019-12-22 12:45:00* Test Item Value Reference Range Interpretation Comments Hematocrit (test code = 4544-3) 36.8 34.2-44.1 [facility] HospitalAutomated erythrocyte mean corpuscular dybyhr3347-29-73 12:45:00* Test Item Value Reference Range Interpretation Comments Mean Corpuscular Volume (test code = 787-2) 87.6 81-99 [facility] HospitalAutomated erythrocyte mean corpuscular hemoglobin (mass per erythrocyte)2019-12-22 12:45:00* Test Item Value Reference Range Interpretation Comments Mean Corpuscular Hemoglobin (test code = 785-6) 26.9 28-32 [facility] HospitalAutomated erythrocyte mean corpuscular hemoglobin concentration measurement (mass/volume)2019-12-22 12:45:00* Test Item Value Reference Range Interpretation Comments Mean Corpuscular Hemoglobin Concent (test code = 786-4) 30.7 31-35 [facility] HospitalRDW MhaGg-Sqs3060-90-29 12:45:00* Test Item Value Reference Range Interpretation Comments Red Cell Distribution Width (test code = 63889-2) 13.5 11.7 -14.4 [facility] HospitalAutomated blood platelet count (count/volume)2019-12-22 12:45:00* Test Item Value Reference Range Interpretation Comments Platelet Count (test code = 777-3) 307 140-360 [facility] HospitalAutomated blood segmented neutrophil count as percentage of total msmvazjrro4011-13-91 12:45:00* Test Item Value Reference Range Interpretation Comments Neutrophils (%) (Auto) (test code = 37108-9) 66.8 38.7-80.0 [facility] HospitalAutomated blood lymphocyte count as percentage ot total lmzmyhhhpa9035-62-77 12:45:00* Test Item Value Reference Range Interpretation Comments Lymphocytes (%) (Auto) (test code = 736-9) 19.7 18.0-39.1 [facility] HospitalAutomated blood monocyte count as percentage of total yqmwsxrohn7238-95-08 12:45:00* Test Item Value Reference Range Interpretation Comments Monocytes (%) (Auto) (test code = 5905-5) 7.9 4.4-11.3 [facility] HospitalAutomated blood eosinophil count as percentage of total ebvfnbbdvy4181-89-67 12:45:00* Test Item Value Reference Range Interpretation Comments Eosinophils (%) (Auto) (test code = 713-8) 3.7 0.0-6.0 [facility] HospitalAutomated blood basophil count as percentage of total fkeultprsi8056-01-28 12:45:00* Test Item Value Reference Range Interpretation Comments Basophils (%) (Auto) (test code = 706-2) 1.3 0.0-1.0 [facility] HospitalFluoroscopic procedure less than one hour ssahkolw8398-08-58 12:45:00* Test Item Value Reference Range Interpretation Comments IM GRANULOCYTES % (test code = IM GRANULOCYTES %) 0.6 0.0- 1.0 [facility] HospitalAutomated blood neutrophil count 2019-12-22 12:45:00* Test Item Value Reference Range Interpretation Comments Neutrophils # (Auto) (test code = 751-8) 5.7 2.1-6.9 [facility] HospitalBlood lymphocytes count (number/volume) 2019-12-22 12:45:00* Test Item Value Reference Range Interpretation Comments Lymphocytes # (Auto) (test code = 63677-5) 1.7 1.0-3.2 [facility] HospitalBlood monocytes automated count (number/volume)2019-12-22 12:45:00* Test Item Value Reference Range Interpretation Comments Monocytes # (Auto) (test code = 742-7) 0.7 0.2-0.8 [facility] HospitalAutomated blood eosinophil count 2019-12-22 12:45:00* Test Item Value Reference Range Interpretation Comments Eosinophils # (Auto) (test code = 711-2) 0.3 0.0-0.4 [facility] HospitalAutomated blood basophil count (count/volume)2019-12-22 12:45:00* Test Item Value Reference Range Interpretation Comments Basophils # (Auto) (test code = 704-7) 0.1 0.0-0.1 [facility] HospitalFluoroscopic procedure less than one hour qticyxnk3279-28-47 12:45:00* Test Item Value Reference Range Interpretation Comments Absolute Immature Granulocyte (auto (wilfrid t code = Absolute Immature Granulocyte (auto) 0.05 0-0.1 [facility] HospitalCT ABDOMEN/PELVIS [id number] 22:15:00 [place] [address] Patient Name: RAVI CARRANZA MR #: [id number] : 1950 Age/Sex: 69/F Req #: [id number] [facility] Physician: Ordered by: OTTO LANDEROS NP Report #: [id number] Location: ER Room/Bed: Procedure: 30 CT/CT ABDOMEN/PELVIS W Exam Date: 06/30/19 Exam T jayden: 2140 REPORT STATUS: Signed EXAM: CT Abdomen and [...] EASON on 06/30/192226 COPY TO: OTTO LANDEROS NP ABDOMEN ACUTE SERIES W/PA [id number] 20:27:00 [place] [address] Patient Name: RAVI CARRANZA MR #: [id number] : 1950 Age/Sex: 69/F Req #: [id number] Adm Physician: Ordered by: PATRIA HOYOS DO Report #: [id number] Location: ER Room/Bed: Procedure: 1206-00 66 DX/ABDOMEN [...] 06/30/192031 COPY TO: PATRIA HOYOS DO Sodium Offfx0503-14-82 20:12:00* Test Item Value Reference Range Interpretation Comments Sodium Level (test code = 2951-2) 133 136-145 L [facility] HospitalPotassium Xcrxz8573-94-36 20:12:00* Test Item Value Reference Range Interpretation Comments Potassium Level (test code = 2823-3) 3.9 3.5-5.1 [facility] HospitalChloride Gwdlk8466-87-41 20:12:00* Test Item Value Reference Range Interpretation Comments Chloride Level (test code = 2075-0) 97 98-107 L [facility] HospitalCarbon Dioxide Xpnqx3569-79-59 20:12:00* Test Item Value Reference Range Interpretation Comments Carbon Dioxide Level (test code = 8-9) 27 22-29 [facility] HospitalAnion [id number] 20:12:00* Test Item Value Reference Range Interpretation Comments Anion Gap (test code = 41164-5) 12.9 8-16 [facility] HospitalBlood Urea Uliumzpt3736-19-59 20:12:00* Test Item Value Reference Range Interpretation Comments Blood Urea Nitrogen (test code = 3094-0) 13 7-26 [facility] HospitalCreatinine2019-12-06 20:12:00* Test Item Value Reference Range Interpretation Comments Creatinine (test code = 2160-0) 0.77 0.57-1.11 [facility] HospitalBUN/Creatinine Hdoio5533-65-42 20:12:00* Test Item Value Reference Range Interpretation Comments BUN/Creatinine Ratio (test code = 3097-3) 17 6-25 [facility] HospitalEstimat Glomerular Filtration Rate 2019-06-30 20:12:00* Test Item Value Reference Range Interpretation Comments Estimat Glomerular Filtration Rate (test code = 273405714) > 60 >60 Ranges were taken from the National Kidney Disease Education Program and the [facility] Kid[facility] Foundation literature.Reference ranges:60 or greater: Yptfvq92-17 ( for 3 consecutive months): Chronic kidney disease 15 or less: Kidney failureMemorial Hermann Cypress HospitalGlucose Gvmpc6321-71-03 20:12:00* Test Item Value Reference Range Interpretation Comments Glucose Level (test code = RCC7875) 127 74-118 H [facility] HospitalCalcium Szceh4809-38-89 20:12:00* Test Item Value Reference Range Interpretation Comments Calcium Level (test code = 25473-1) 9.3 8.4-10.2 [facility] HospitalTotal Ibeapaizi8153-83-62 20:12:00* Test Item Value Reference Range Interpretation Comments Total Bilirubin (test code = 1975-2) 1.6 0.2-1.2 H [facility] HospitalAspartate Amino Transf (AST/SGOT) 2019-06-30 20:12:00* Test Item Value Reference Range Interpretation Comments Aspartate Amino Transf (AST/SGOT) (test code = Aspartate Amino Transf (AST/SGOT)) 31 5-34 [facility] HospitalAlanine Aminotransferase (ALT/SGPT) 2019-06-30 20:12:00* Test Item Value Reference Range Interpretation Comments Alanine Aminotransferase (ALT/SGPT) (test code = 1742-6) 29 0-55 [facility] HospitalTotal Pyzyytp2404-87-08 20:12:00* Test Item Value Reference Range Interpretation Comments Total Protein (test code = 2885-2) 7.3 6.5-8.1 [facility] HospitalAlbumin2019-12-06 20:12:00* Test Item Value Reference Range Interpretation Comments Albumin (test code = 1751-7) 3.1 3.5-5.0 L [facility] HospitalGlobulin2019-12-06 20:12:00* Test Item Value Reference Range Interpretation Comments Globulin (test code = 41773-2) 4.2 2.3-3.5 H [facility] HospitalAlbumin/Globulin Aeppc1156-11-18 20:12:00 * Test Item Value Reference Range Interpretation Comments Albumin/Globulin Ratio (test code = 1759-0) 0.7 0.8-2.0 L [facility] HospitalAlkaline Ucxtchaagkr2683-51-77 20:12:00* Test Item Value Reference Range Interpretation Comments Alkaline Phosphatase (test code = 6768-6) 194 40-150 H [facility] HospitalUrine Rgkkl8160-52-05 20:09:00* Test Item Value Reference Range Interpretation Comments Urine Color (test code = 5778-6) YELLOW YELLOW [facility] HospitalUrine Skuleak6767-19-83 20:09:00* Test Item Value Reference Range Interpretation Comments Urine Clarity (test code = 94476-0) SL CLOUDY CLEAR [facility] HospitalUrine Specific Rnzqlpy8803-32-13 20:09:00 * Test Item Value Reference Range Interpretation Comments Urine Specific [place] (test code = 5811-5) 1.010 1.010-1.02 5 [facility] HospitalUrine wJ3277-29-61 20:09:00* Test Item Value Reference Range Interpretation Comments Urine pH (test code = 07412-6) 7 5-7 [facility] HospitalUrine Leukocyte Pnastfsj7872-54-06 20:09:00* Test Item Value Reference Range Interpretation Comments Urine Leukocyte Esterase (test code = 5799-2) NEGATIVE NEGATIVE [facility] HospitalUrine Qsgzmgm8199-88-02 20:09:00* Test Item Value Reference Range Interpretation Comments Urine Nitrite (test code = 84772-5) NEGATIVE NEGATIVE [facility] HospitalUrine Tdjanpt0533-33-85 20:09:00* Test Item Value Reference Range Interpretation Comments Urine Protein (test code = 5804-0) 1+ NEGATIVE H [facility] HospitalUrine Glucose (UA)2019-06-30 20:09:00* Test Item Value Reference Range Interpretation Comments Urine Glucose (UA) (test code = 2349-9) NEGATIVE NEGATIVE [facility] HospitalUrine Udzfhjj9890-36-86 20:09:00* Test Item Value Reference Range Interpretation Comments Urine Ketones (test code = 56830-9) NEGATIVE NEGATIVE [facility] Nupvbjlmufam9386-78-69 20:09:00* Test Item Value Reference Range Interpretation Comments Urine Urobilinogen (test code = 27111-1) 0.2 0.2-1 [facility] Fvagevxdn3833-54-22 20:09:00* Test Item Value Reference Range Interpretation Comments Urine Bilirubin (test code = 1978-6) NEGATIVE NEGATIVE [facility] HospitalUrine Zmosk2250-95-35 20:09:00* Test Item Value Reference Range Interpretation Comments Urine Blood (test code = 33926-0) 1+ NEGATIVE H [facility] HospitalUrine NWB8047-59-11 20:09:00* Test Item Value Reference Range Interpretation Comments Urine WBC (test code = 5821-4) NONE 0-5 [facility] HospitalUrine TCH8781-32-65 20:09:00* Test Item Value Reference Range Interpretation Comments Urine RBC (test code = 36722-1) 6-10 0-5 H [facility] HospitalUrine Nmwvkfeh8169-86-24 20:09:00* Test Item Value Reference Range Interpretation Comments Urine Bacteria (test code = 27306-0) MODERATE NONE H [facility] HospitalUrine Epithelial Rbmoo9628-29-41 20:09:00 * Test Item Value Reference Range Interpretation Comments Urine Epithelial Cells (test code = 82201-8) MANY NONE [facility] HospitalLactic Acid Vwsib2867-08-83 20:07:00* Test Item Value Reference Range Interpretation Comments Lactic Acid Level (test code = Lactic Acid Level) 0.8 0.5- 2.0 [facility] HospitalWhite Blood Uxczh0037-28-17 19:50:00* Test Item Value Reference Range Interpretation Comments White Blood Count (test code = 6690-2) 9.40 4.8-10.8 [facility] HospitalRed Blood Edrhm7026-56-70 19:50:00* Test Item Value Reference Range Interpretation Comments Red Blood Count (test code = 789-8) 4.16 3.6-5.1 [facility] HospitalHemoglobin2019-12-06 19:50:00* Test Item Value Reference Range Interpretation Comments Hemoglobin (test code = 39687-0) 11.3 12.0-16.0 L [facility] HospitalHematocrit2019-12-06 19:50:00* Test Item Value Reference Range Interpretation Comments Hematocrit (test code = 4544-3) 36.0 34.2-44.1 [facility] HospitalMean Corpuscular Fkzohl6847-90-35 19:50:00* Test Item Value Reference Range Interpretation Comments Mean Corpuscular Volume (test code = 787-2) 86.5 81-99 [facility] HospitalMean Corpuscular Cgyphsaxsj8879-68-83 19:50:00* Test Item Value Reference Range Interpretation Comments Mean Corpuscular Hemoglobin (test code = 785-6) 27.2 28-32 L [facility] HospitalMean Corpuscular Hemoglobin Concent 2019-06-30 19:50:00* Test Item Value Reference Range Interpretation Comments Mean Corpuscular Hemoglobin Concent (test code = 786-4) 31.4 31-35 [facility] HospitalRed Cell Distribution Hofnc2402-35-70 19:50:00* Test Item Value Reference Range Interpretation Comments Red Cell Distribution Width (test code = 47025-5) 12.8 11.7 -14.4 [facility] HospitalPlatelet Joljv3716-02-71 19:50:00* Test Item Value Reference Range Interpretation Comments Platelet Count (test code = 777-3) 305 140-360 [facility] HospitalNeutrophils (%) (Auto)2019-06-30 19:50:00 * Test Item Value Reference Range Interpretation Comments Neutrophils (%) (Auto) (test code = 70932-9) 72.7 38.7-80.0 [facility] HospitalLymphocytes (%) (Auto)2019-06-30 19:50:00 * Test Item Value Reference Range Interpretation Comments Lymphocytes (%) (Auto) (test code = 736-9) 14.7 18.0-39.1 L [facility] HospitalMonocytes (%) (Auto)2019-06-30 19:50:00* Test Item Value Reference Range Interpretation Comments Monocytes (%) (Auto) (test code = 5905-5) 9.7 4.4-11.3 [facility] HospitalEosinophils (%) (Auto)2019-06-30 19:50:00 * Test Item Value Reference Range Interpretation Comments Eosinophils (%) (Auto) (test code = 713-8) 1.3 0.0-6.0 [facility] HospitalBasophils (%) (Auto)2019-06-30 19:50:00* Test Item Value Reference Range Interpretation Comments Basophils (%) (Auto) (test code = 706-2) 1.2 0.0-1.0 H [facility] HospitalIM GRANULOCYTES %2019-06-30 19:50:00* Test Item Value Reference Range Interpretation Comments IM GRANULOCYTES % (test code = IM GRANULOCYTES %) 0.4 0.0- 1.0 [facility] HospitalNeutrophils # (Auto)2019-06-30 19:50:00* Test Item Value Reference Range Interpretation Comments Neutrophils # (Auto) (test code = 751-8) 6.8 2.1-6.9 [facility] HospitalLymphocytes # (Auto)2019-06-30 19:50:00* Test Item Value Reference Range Interpretation Comments Lymphocytes # (Auto) (test code = 51796-4) 1.4 1.0-3.2 [facility] HospitalMonocytes # (Auto)2019-06-30 19:50:00* Test Item Value Reference Range Interpretation Comments Monocytes # (Auto) (test code = 742-7) 0.9 0.2-0.8 H [facility] HospitalEosinophils # (Auto)2019-06-30 19:50:00* Test Item Value Reference Range Interpretation Comments Eosinophils # (Auto) (test code = 711-2) 0.1 0.0-0.4 [facility] HospitalBasophils # (Auto)2019-06-30 19:50:00* Test Item Value Reference Range Interpretation Comments Basophils # (Auto) (test code = 704-7) 0.1 0.0-0.1 [facility] HospitalAbsolute Immature Granulocyte (auto 2019-06-30 19:50:00* Test Item Value Reference Range Interpretation Comments Absolute Immature Granulocyte (auto (wilfrid t code = Absolute Immature Granulocyte (auto) 0.04 0-0.1 [facility] HospitalUrine color kwdptwminssrt2070-32-33 18:11:00* Test Item Value Reference Range Interpretation Comments Urine Color (test code = 5778-6) YELLOW YELLOW [facility] HospitalUrine bszajwi8726-50-34 18:11:00* Test Item Value Reference Range Interpretation Comments Urine Clarity (test code = 75915-4) SL CLOUDY CLEAR [facility] gravity of Urine by Test strip 2019-06-30 18:11:00* Test Item Value Reference Range Interpretation Comments Urine Specific [place] (test code = 5811-5) 1.010 1.010-1.02 5 [facility] HospitalUrine pH measurement by automated test esriq2608-35-96 18:11:00* Test Item Value Reference Range Interpretation Comments Urine pH (test code = 30102-0) 7 5-7 [facility] HospitalUrine leukocyte esterase detection by epiplsbr6011-31-98 18:11:00* Test Item Value Reference Range Interpretation Comments Urine Leukocyte Esterase (test code = 5799-2) NEGATIVE NEGATIVE [facility] HospitalUrine nitrite yaveovtkv3662-02-72 18:11:00* Test Item Value Reference Range Interpretation Comments Urine Nitrite (test code = 41298-6) NEGATIVE NEGATIVE [facility] HospitalUrine protein measurement by test strip (mass/volume)2019-06-30 18:11:00* Test Item Value Reference Range Interpretation Comments Urine Protein (test code = 5804-0) 1+ NEGATIVE [facility] HospitalUrine glucose bltlihnid8875-29-90 18:11:00* Test Item Value Reference Range Interpretation Comments Urine Glucose (UA) (test code = 2349-9) NEGATIVE NEGATIVE [facility] HospitalUrine ketones detection by automated test ucgvo2903-68-53 18:11:00* Test Item Value Reference Range Interpretation Comments Urine Ketones (test code = 79493-8) NEGATIVE NEGATIVE [facility] HospitalUrine urobilinogen measurement by test strip (mass/volume)2019-06-30 18:11:00* Test Item Value Reference Range Interpretation Comments Urine Urobilinogen (test code = 79317-2) 0.2 0.2-1 [facility] HospitalUrine total bilirubin measurement (mass/volume)2019-06-30 18:11:00* Test Item Value Reference Range Interpretation Comments Urine Bilirubin (test code = 1978-6) NEGATIVE NEGATIVE [facility] HospitalUrine erythrocytes ilfplrufa7339-49-34 18:11:00* Test Item Value Reference Range Interpretation Comments Urine Blood (test code = 83453-7) 1+ NEGATIVE [facility] HospitalAutomated urine sediment leukocyte count by microscopy (number/high power field)2019-06-30 18:11:00* Test Item Value Reference Range Interpretation Comments Urine WBC (test code = 5821-4) NONE 0-5 [facility] HospitalErythrocytes detection in urine sediment by light sltnrucyqa9537-67-94 18:11:00* Test Item Value Reference Range Interpretation Comments Urine RBC (test code = 21261-5) 6-10 0-5 [facility] HospitalBacteria detection in urine sediment by light sdzckvlxob5241-76-12 18:11:00* Test Item Value Reference Range Interpretation Comments Urine Bacteria (test code = 39361-6) MODERATE NONE [facility] HospitalEpithelial cells detection in urine sediment by light zbhhfbnyjk5384-96-83 18:11:00* Test Item Value Reference Range Interpretation Comments Urine Epithelial Cells (test code = 96049-7) MANY NONE [facility]lineerum or plasma sodium measurement (moles/volume)2019-06-30 18:09:00* Test Item Value Reference Range Interpretation Comments Sodium Level (test code = 2951-2) 133 136-145 [facility]lineerum or plasma potassium measurement (moles/volume)2019-06-30 18:09:00* Test Item Value Reference Range Interpretation Comments Potassium Level (test code = 2823-3) 3.9 3.5-5.1 [facility]lineerum or plasma chloride measurement (moles/volume)2019-06-30 18:09:00* Test Item Value Reference Range Interpretation Comments Chloride Level (test code = 2075-0) 97 98-107 [facility]lineerum or plasma carbon dioxide, total measurement (moles/volume)2019-06-30 18:09:00* Test Item Value Reference Range Interpretation Comments Carbon Dioxide Level (test code = 2028-9) 27 22-29 [facility]lineerum or plasma anion afk5281-47-89 18:09:00* Test Item Value Reference Range Interpretation Comments Anion Gap (test code = 69803-3) 12.9 8-16 [facility]lineerum or plasma urea nitrogen measurement (mass/volume)2019-06-30 18:09:00* Test Item Value Reference Range Interpretation Comments Blood Urea Nitrogen (test code = 3094-0) 13 7-26 [facility]lineerum or plasma creatinine measurement (mass/volume)2019-06-30 18:09:00* Test Item Value Reference Range Interpretation Comments Creatinine (test code = 2160-0) 0.77 0.57-1.11 [facility]lineerum or plasma urea nitrogen/creatinine mass jcrsw4500-13-59 18:09:00* Test Item Value Reference Range Interpretation Comments BUN/Creatinine Ratio (test code = 3097-3) 17 6-25 [facility] HospitalEstimated glomerular filtration rate (GFR) yoojzdvrbehqb1349-15-73 18:09:00* Test Item Value Reference Range Interpretation Comments Estimat Glomerular Filtration Rate (test code = 516526008) > 60 >60 Ranges were taken from the National Kidney Disease Education Program and the [facility] Kid[facility] Foundation literature.Reference ranges:60 or greater: Nsdsib26-75 ( for 3 consecutive months): Chronic kidney disease 15 or less: Kidney failureMemorial Hermann Cypress HospitalGlucose omnyrdrjyux7970-70-04 18:09:00* Test Item Value Reference Range Interpretation Comments Glucose Level (test code = BMP4056) 127 74-118 [facility] or plasma calcium measurement (mass/volume)2019-06-30 18:09:00* Test Item Value Reference Range Interpretation Comments Calcium Level (test code = 82869-8) 9.3 8.4-10.2 [facility] HospitalFluoroscopic procedure less than one hour tozjadai4465-96-63 18:09:00* Test Item Value Reference Range Interpretation Comments Lactic Acid Level (test code = Lactic Acid Level) 0.8 0.5- 2.0 [facility] or plasma total bilirubin measurement (mass/volume)2019-06-30 18:09:00* Test Item Value Reference Range Interpretation Comments Total Bilirubin (test code = 1975-2) 1.6 0.2-1.2 [facility] HospitalFluoroscopic procedure less than one hour omhjwgps0004-67-48 18:09:00* Test Item Value Reference Range Interpretation Comments Aspartate Amino Transf (AST/SGOT) (test code = Aspartate Amino Transf (AST/SGOT)) 31 5-34 [facility]lineerum or plasma alanine aminotransferase measurement (enzymatic activity/volume)2019-06-30 18:09:00* Test Item Value Reference Range Interpretation Comments Alanine Aminotransferase (ALT/SGPT) (test code = 1742-6) 29 0-55 [facility]lineerum or plasma protein measurement (mass/volume)2019-06-30 18:09:00* Test Item Value Reference Range Interpretation Comments Total Protein (test code = 2885-2) 7.3 6.5-8.1 [facility]erum or plasma albumin measurement (mass/volume)2019-06-30 18:09:00* Test Item Value Reference Range Interpretation Comments Albumin (test code = 1751-7) 3.1 3.5-5.0 [facility] HospitalPlasma globulin measurement (mass/volume) 2019-06-30 18:09:00* Test Item Value Reference Range Interpretation Comments Globulin (test code = 63821-7) 4.2 2.3-3.5 [facility]erum or plasma albumin/globulin mass rbcfe4745-32-48 18:09:00* Test Item Value Reference Range Interpretation Comments Albumin/Globulin Ratio (test code = 1759-0) 0.7 0.8-2.0 [facility] or plasma alkaline phosphatase measurement (enzymatic activity/volume)2019-06-30 18:09:00* Test Item Value Reference Range Interpretation Comments Alkaline Phosphatase (test code = 6768-6) 194 40-150 [facility] HospitalBlood jnkkvhe0894-77-50 18:09:00* Test Item Value Reference Range Interpretation Comments Blood Culture (test code = 82481068) NO GROWTH AFTER 5 DAYS, FINAL REPORT [facility] HospitalBacterial blood upwthnj8041-42-78 18:09:00* Test Item Value Reference Range Interpretation Comments Blood Culture (test code = 600-7) MICROCOCCUS SPECIES [facility] HospitalWhite Blood Bjcjm3875-55-83 04:44:00* Test Item Value Reference Range Interpretation Comments White Blood Count (test code = 6690-2) 8.02 4.8-10.8 [facility] HospitalRed Blood Bexej8929-72-71 04:44:00* Test Item Value Reference Range Interpretation Comments Red Blood Count (test code = 789-8) 4.26 3.6-5.1 [facility] HospitalHemoglobin2019-11-26 04:44:00* Test Item Value Reference Range Interpretation Comments Hemoglobin (test code = 69128-4) 11.7 12.0-16.0 L [facility] HospitalHematocrit2019-11-26 04:44:00* Test Item Value Reference Range Interpretation Comments Hematocrit (test code = 4544-3) 37.6 34.2-44.1 [facility] HospitalMean Corpuscular Ovocnu9203-18-64 04:44:00* Test Item Value Reference Range Interpretation Comments Mean Corpuscular Volume (test code = 787-2) 88.3 81-99 [facility] HospitalMean Corpuscular Hkjyfcgfdj6956-95-11 04:44:00* Test Item Value Reference Range Interpretation Comments Mean Corpuscular Hemoglobin (test code = 785-6) 27.5 28-32 L [facility] HospitalMean Corpuscular Hemoglobin Concent 2019-06-20 04:44:00* Test Item Value Reference Range Interpretation Comments Mean Corpuscular Hemoglobin Concent (test code = 786-4) 31.1 31-35 [facility] HospitalRed Cell Distribution Ouhfq2695-96-44 04:44:00* Test Item Value Reference Range Interpretation Comments Red Cell Distribution Width (test code = 76575-4) 13.0 11.7 -14.4 [facility] HospitalPlatelet Icugj8635-42-34 04:44:00* Test Item Value Reference Range Interpretation Comments Platelet Count (test code = 777-3) 412 140-360 H [facility] HospitalNeutrophils (%) (Auto)2019-06-20 04:44:00 * Test Item Value Reference Range Interpretation Comments Neutrophils (%) (Auto) (test code = 42784-3) 64.0 38.7-80.0 [facility] HospitalLymphocytes (%) (Auto)2019-06-20 04:44:00 * Test Item Value Reference Range Interpretation Comments Lymphocytes (%) (Auto) (test code = 736-9) 22.9 18.0-39.1 [facility] HospitalMonocytes (%) (Auto)2019-06-20 04:44:00* Test Item Value Reference Range Interpretation Comments Monocytes (%) (Auto) (test code = 5905-5) 6.9 4.4-11.3 [facility] HospitalEosinophils (%) (Auto)2019-06-20 04:44:00 * Test Item Value Reference Range Interpretation Comments Eosinophils (%) (Auto) (test code = 713-8) 4.1 0.0-6.0 [facility] (%) (Auto)2019-06-20 04:44:00* Test Item Value Reference Range Interpretation Comments Basophils (%) (Auto) (test code = 706-2) 1.1 0.0-1.0 H [facility] HospitalIM GRANULOCYTES %2019-06-20 04:44:00* Test Item Value Reference Range Interpretation Comments IM GRANULOCYTES % (test code = IM GRANULOCYTES %) 1.0 0.0- 1.0 [facility] HospitalNeutrophils # (Auto)2019-06-20 04:44:00* Test Item Value Reference Range Interpretation Comments Neutrophils # (Auto) (test code = 751-8) 5.1 2.1-6.9 [facility] HospitalLymphocytes # (Auto)2019-06-20 04:44:00* Test Item Value Reference Range Interpretation Comments Lymphocytes # (Auto) (test code = 14065-7) 1.8 1.0-3.2 [facility] HospitalMonocytes # (Auto)2019-06-20 04:44:00* Test Item Value Reference Range Interpretation Comments Monocytes # (Auto) (test code = 742-7) 0.6 0.2-0.8 [facility] HospitalEosinophils # (Auto)2019-06-20 04:44:00* Test Item Value Reference Range Interpretation Comments Eosinophils # (Auto) (test code = 711-2) 0.3 0.0-0.4 [facility] HospitalBasophils # (Auto)2019-06-20 04:44:00* Test Item Value Reference Range Interpretation Comments Basophils # (Auto) (test code = 704-7) 0.1 0.0-0.1 [facility] HospitalAbsolute Immature Granulocyte (auto 2019-06-20 04:44:00* Test Item Value Reference Range Interpretation Comments Absolute Immature Granulocyte (auto (wilfrid t code = Absolute Immature Granulocyte (auto) 0.08 0-0.1 [facility] Bfwxt2810-21-64 03:36:00* Test Item Value Reference Range Interpretation Comments Sodium Level (test code = 2951-2) 138 136-145 [facility] HospitalPotassium Zajih2175-69-97 03:36:00* Test Item Value Reference Range Interpretation Comments Potassium Level (test code = 2823-3) 4.1 3.5-5.1 [facility] HospitalChloride Pbgnp3504-34-13 03:36:00* Test Item Value Reference Range Interpretation Comments Chloride Level (test code = 2075-0) 102 98-107 [facility] HospitalCarbon Dioxide Pciqz3439-94-84 03:36:00* Test Item Value Reference Range Interpretation Comments Carbon Dioxide Level (test code = 2028-9) 29 22-29 [facility] HospitalAnion Icq2357-79-28 03:36:00* Test Item Value Reference Range Interpretation Comments Anion Gap (test code = 87886-0) 11.1 8-16 [facility] HospitalBlood Urea Yjzrkfqm8208-38-82 03:36:00* Test Item Value Reference Range Interpretation Comments Blood Urea Nitrogen (test code = 3094-0) 13 7-26 [facility] HospitalCreatinine2019-11-26 03:36:00* Test Item Value Reference Range Interpretation Comments Creatinine (test code = 2160-0) 0.77 0.57-1.11 [facility] HospitalBUN/Creatinine Kkrjw8005-52-83 03:36:00* Test Item Value Reference Range Interpretation Comments BUN/Creatinine Ratio (test code = 3097-3) 17 6- [facility] HospitalEstimat Glomerular Filtration Rate 2019-06-20 03:36:00* Test Item Value Reference Range Interpretation Comments Estimat Glomerular Filtration Rate (test code = 730822640) > 60 >60 Ranges were taken from the National Kidney Disease Education Program and the [facility] literature.Reference ranges:60 or greater: Incthb80-49 ( for 3 consecutive months): Chronic kidney disease 15 or less: Kidney failureMemorial Hermann Cypress HospitalGlucose Axiel3130-33-35 03:36:00* Test Item Value Reference Range Interpretation Comments Glucose Level (test code = ZWE9988) 117 74-118 [facility] HospitalCalcium Fhbyy4508-05-91 03:36:00* Test Item Value Reference Range Interpretation Comments Calcium Level (test code = 36938-8) 9.4 8.4-10.2 [facility] HospitalMRI MRCP VAK7215-73-03 16:42:00 [facility] [address] [address] Patient Name: RAVI CARRANZA MR #: [id number] : 1950 Age/Sex: 69/F Req #: [id number] Adm Physician: YUSRA SCHULTZ MD Ordered by: DEQUAN FUENTES MD Report #: [id number] Location: [facility] Room/Bed: [facility] Procedure: 1125-001 0 MRI/MRI MRCP [facility] Exam Date: Exam Time: REPORT STATUS: Signed [...] 5:08 PM Dictated By: JOHNNY CROSS MD 07 Transcribed By: DERRICK on 06/19/191707 COPY TO: DEQUAN FUENTES MD CHEST XRAY LINE UNCVJJXNB9769-42-36 13:00:[address] [address] Patient Name: RAVI CARRANZA MR #: [id number] : 1950 Age/Sex: 69/F Req #: [id number] Adm Physician: YUSRA SCHULTZ MD Ordered by: YUSRA SCHULTZ MD Report #: [id number] Location: MED/SURG3 Room/Bed: [facility] Procedure: 4704-8330 DX/CHEST XRAY LINE PLACEMENT Exam Date: Exam [...] By: DERRICK on 06/19/19 1301 COPY TO: YUSRA SCHULTZ MD Total Budgfaugo8775-30-12 07:02:00* Test Item Value Reference Range Interpretation Comments Total Bilirubin (test code = 1975-2) 0.4 0.2-1.2 [facility] HospitalAspartate Amino Transf (AST/SGOT) 2019-06-19 07:02:00* Test Item Value Reference Range Interpretation Comments Aspartate Amino Transf (AST/SGOT) (test code = Aspartate Amino Transf (AST/SGOT)) 41 5-34 H [facility] HospitalAlanine Aminotransferase (ALT/SGPT) 2019-06-19 07:02:00* Test Item Value Reference Range Interpretation Comments Alanine Aminotransferase (ALT/SGPT) (test code = 1742-6) 47 0-55 [facility] HospitalTotal Qgnlxys0402-77-96 07:02:00* Test Item Value Reference Range Interpretation Comments Total Protein (test code = 2885-2) 6.8 6.5-8.1 [facility] HospitalAlbumin2019-11-25 07:02:00* Test Item Value Reference Range Interpretation Comments Albumin (test code = 1751-7) 2.8 3.5-5.0 L [facility] HospitalGlobulin2019-11-25 07:02:00* Test Item Value Reference Range Interpretation Comments Globulin (test code = 38550-2) 4.0 2.3-3.5 H [facility] HospitalAlbumin/Globulin Bsmal0494-09-79 07:02:00 * Test Item Value Reference Range Interpretation Comments Albumin/Globulin Ratio (test code = 1759-0) 0.7 0.8-2.0 L [facility] HospitalAlkaline Hmlzzlxcnyk4104-33-64 07:02:00* Test Item Value Reference Range Interpretation Comments Alkaline Phosphatase (test code = 6768-6) 202 40-150 H [facility] HospitalUrine Nglrikp9979-07-12 06:39:00* Test Item Value Reference Range Interpretation Comments Urine Culture (test code = 630-4) No Result Data Provided [facility] HospitalUrine Baefmwx0750-06-19 06:39:00* Test Item Value Reference Range Interpretation Comments Urine Culture (test code = 630-4) No Result Data Provided [facility]linetool Occult Axkoe7820-65-41 10:15:00* Test Item Value Reference Range Interpretation Comments Stool Occult Blood (test code = 2335-8) NEGATIVE NEGATIVE [facility] Utczb1186-60-74 10:15:00* Test Item Value Reference Range Interpretation Comments Stool Occult Blood (test code = 2335-8) NEGATIVE NEGATIVE [facility] HospitalUrine AFE7415-29-96 09:35:00* Test Item Value Reference Range Interpretation Comments Urine WBC (test code = 5821-4) 6-10 0-5 H [facility] HospitalUrine MEL3774-43-47 09:35:00* Test Item Value Reference Range Interpretation Comments Urine RBC (test code = 36844-0) 0-5 0-5 [facility] HospitalUrine Nxjmezwf5729-46-36 09:35:00* Test Item Value Reference Range Interpretation Comments Urine Bacteria (test code = 28740-4) MODERATE NONE H [facility] HospitalUrine Epithelial Ezxbx1403-42-98 09:35:00 * Test Item Value Reference Range Interpretation Comments Urine Epithelial Cells (test code = 64582-7) FEW NONE [facility] HospitalUrine Riisu1157-35-58 09:19:00* Test Item Value Reference Range Interpretation Comments Urine Color (test code = 5778-6) YELLOW YELLOW [facility] HospitalUrine Uxdtywp6428-88-69 09:19:00* Test Item Value Reference Range Interpretation Comments Urine Clarity (test code = 85770-8) SL CLOUDY CLEAR [facility] HospitalUrine Specific Hrofcgs3230-59-27 09:19:00 * Test Item Value Reference Range Interpretation Comments Urine Specific [place] (test code = 5811-5) 1.015 1.010-1.02 5 [facility] HospitalUrine rB1391-19-86 09:19:00* Test Item Value Reference Range Interpretation Comments Urine pH (test code = 96682-9) 6 5-7 [facility] HospitalUrine Leukocyte Xmpioclo0183-20-71 09:19:00* Test Item Value Reference Range Interpretation Comments Urine Leukocyte Esterase (test code = 91085-7) NEGATIVE NEGATIV E [facility] HospitalUrine Xjbfwud4384-71-06 09:19:00* Test Item Value Reference Range Interpretation Comments Urine Nitrite (test code = 89078-6) NEGATIVE NEGATIVE [facility] HospitalUrine Ihrrcpg6119-52-09 09:19:00* Test Item Value Reference Range Interpretation Comments Urine Protein (test code = 31456-8) NEGATIVE NEGATIVE [facility] HospitalUrine Glucose (UA)2019-06-18 09:19:00* Test Item Value Reference Range Interpretation Comments Urine Glucose (UA) (test code = 87832-4) NEGATIVE NEGATIVE [facility] HospitalUrine Hyszdlw8640-16-51 09:19:00* Test Item Value Reference Range Interpretation Comments Urine Ketones (test code = 18081-8) NEGATIVE NEGATIVE [facility] HospitalUrine Bjagwgkpvtsc4024-82-42 09:19:00* Test Item Value Reference Range Interpretation Comments Urine Urobilinogen (test code = 91723-9) 0.2 0.2-1 [facility] HospitalUrine Puybbsneb8736-34-20 09:19:00* Test Item Value Reference Range Interpretation Comments Urine Bilirubin (test code = 1977-8) NEGATIVE NEGATIVE [facility] HospitalUrine Bbpwc1198-41-27 09:19:00* Test Item Value Reference Range Interpretation Comments Urine Blood (test code = 09995-3) NEGATIVE NEGATIVE [facility]lin[facility]ool gastrointestinal hemoglobin afniomffz9342-48-46 08:00:00* Test Item Value Reference Range Interpretation Comments Stool Occult Blood (test code = 2335-8) NEGATIVE NEGATIVE [facility] HospitalCT ABDOMEN/PELVIS YN8464-58-03 21:11:00 [facility] [address] [place] [address] Patient Name: RAVI CARRANZA MR #: [id number] : 1950 Age/Sex: 69/F Req #: [id number] Adm Physician: Ordered by: PATRIA HOYOS DO Report #: [id number] Location: ER Room/Bed: Procedure: 33 CT/CT ABDOMEN/PELVIS WO Exam Date: 06/16/19 [...] COPY TO: PATRIA HOYOS DO Bacterial urine gijkptq1093-52-42 21:10:00* Test Item Value Reference Range Interpretation Comments Urine Culture (test code = 630-4) ESCHERICHIA COLI-ESBL [facility] SINGLE (PORTABLE)2019 21:06:00 [address] [address] Patient Name: RAVI CARRANZA MR #: [id number] : 1950 Age/Sex: 69/F Req #: [id number] Adm Physician: Ordered by: PATRIA HOYOS DO Report #: [id number] Location: ER Room/Bed: Procedure: 80 DX/CHEST SINGLE (PORTABLE) Exam Date: 06/16/19 [...] By: DERRICK on 06/16/192105 COPY TO: PATRIA HOYOS,
--- NOTE | 2020-06-13 01:50 | NUR ---
PATIENT ROUNDS: PATIENT IS ASLEEP, CONNECTED TO CARDIAC MONITORING
[2020-06-13 05:10] VITALS: BP 126/75
== END 2020-06-13 05:22 | disposition home or self-care (01) ==
LOC: ER 20:41
DX: R53.1 Weakness (principal); R11.2 Nausea with vomiting, unspecified; T40.7X5A Adverse effect of cannabis (derivatives), initial encounter; I10 Essential (primary) hypertension
CPT/HCPCS: 36415; 70450; 71045; 80053; 80307; 81001; 82550; 82553; 84484; 85025; 93005; 99284; J7030; Q0162

== ENCOUNTER → 2020-10-08 | Day surgery (SDC) | payer MEDICARE ==
[~2020-10-08] MED LIST changes: +ACETAMINOPHEN325 M1 PO; +MIDAZOLAM HCL 2 MG/2 ML VIAL ONE; +OR PHACO EYE KIT ONE; +PREOP PHACO EYE KIT ONE
[2020-10-08 15:50] VITALS: BP 151/72
== END | disposition home or self-care (01) ==
LOC: OR 11:25
PROVIDERS: ATTEND Ophthalmology
DX: H25.11 Age-related nuclear cataract, right eye (principal); I10 Essential (primary) hypertension; K21.9 Gastro-esophageal reflux disease without esophagitis; R42 Dizziness and giddiness; R06.02 Shortness of breath; N39.0 Urinary tract infection, site not specified; Z88.6 Allergy status to analgesic agent; Z01.812 Encounter for preprocedural laboratory examination; Z20.822 Contact with and (suspected) exposure to COVID-19; Z86.16 Personal history of COVID-19; Z86.19 Personal history of other infectious and parasitic diseases
CPT/HCPCS: 66984; J2250; U0002; V2632

== ENCOUNTER → 2020-12-10 | Day surgery (SDC) | payer MEDICARE ==
[~2020-12-10] MED LIST changes: +FENTANYL CITRATE/PF 100MCG/2 ML INJ ONE
[2020-12-10 11:15] VITALS: BP 153/74
== END | disposition home or self-care (01) ==
LOC: OR 07:50
PROVIDERS: ATTEND Ophthalmology
DX: H25.12 Age-related nuclear cataract, left eye (principal); K57.92 Diverticulitis of intestine, part unspecified, without perforation or abscess without bleeding; K21.9 Gastro-esophageal reflux disease without esophagitis; Z90.49 Acquired absence of other specified parts of digestive tract; Z09 Encounter for follow-up examination after completed treatment for conditions other than malignant neoplasm; Z87.440 Personal history of urinary (tract) infections; Z01.812 Encounter for preprocedural laboratory examination; Z20.822 Contact with and (suspected) exposure to COVID-19; Z88.5 Allergy status to narcotic agent; J45.909 Unspecified asthma, uncomplicated; I10 Essential (primary) hypertension; I83.90 Asymptomatic varicose veins of unspecified lower extremity
CPT/HCPCS: 66984; J2250; J3010; U0002

== ENCOUNTER → 2021-01-08 | Outpatient (CLI) | payer MEDICARE ==
[~2021-01-08] MED LIST changes: -FENTANYL CITRATE/PF 100MCG/2 ML INJ ONE; -MIDAZOLAM HCL 2 MG/2 ML VIAL ONE; -OR PHACO EYE KIT ONE; -PREOP PHACO EYE KIT ONE
== END ==
LOC: MAMMO 09:41
PROVIDERS: ATTEND Family Medicine
DX: Z12.31 Encounter for screening mammogram for malignant neoplasm of breast (principal)
CPT/HCPCS: 77067

== ENCOUNTER 2021-05-13 11:50 | Emergency (ER) | payer MEDICARE ==
[~2021-05-13] VITALS: Ht 170.2 cm; Wt 83.9 kg
[2021-05-13] MEDS ORDERED: IBUPROFEN 400 MG TAB PO ONE (12:15)
[2021-05-13] MEDS ORDERED: IBUPROFEN400 MG PO (12:43)
== END 2021-05-13 12:49 | disposition home or self-care (01) ==
LOC: FSED 11:59
DX: S80.01XA Contusion of right knee, initial encounter (principal); M25.461 Effusion, right knee; W17.89XA Other fall from one level to another, initial encounter; I10 Essential (primary) hypertension
CPT/HCPCS: 99283

== ENCOUNTER 2021-07-31 10:22 | Emergency (ER) | payer MEDICARE ==
[~2021-07-31] VITALS: Ht 167.6 cm; Wt 82.2 kg
[~2021-07-31 10:22] MED LIST changes: +IBUPROFEN400 MG PO
[2021-07-31] MEDS ORDERED: SODIUM CHLORIDE 0.9% 1000ML 1,000 ML IV STA (11:03)
[2021-07-31] MEDS ORDERED: ONDANSETRON HCL INJ 2MG/ML 2ML 2 MG/ML VIAL IV ONE (11:15)
[2021-07-31] MEDS ORDERED: CEFTRIAXONE 1 GM VIAL IV ONE (11:15)
[2021-07-31] MEDS ORDERED: CEFTRIAXONE 1 GM in SODIUM CHLORIDE 0.9% 100 ML IV ONE (11:15)
[2021-07-31] MEDS ORDERED: KETOROLAC TROMETHAMINE 30 MG/ML VIAL IV ONE (11:15)
[2021-07-31] MEDS ORDERED: FAMOTIDINE 20 MG/2 ML VIAL IV ONE ×2 (11:15→11:38)
[2021-07-31] MEDS ORDERED: IOPAMIDOL 370 MG/ML 200 ML INFUS..BTL INJ ONE (11:28)
[2021-07-31] MEDS ORDERED: SODIUM CHLORIDE 0.9% 50ML 50 ML ONE (11:28)
[2021-07-31] MEDS ORDERED: KETOROLAC TROMETHAMINE 30 MG/ML VIAL ONE (11:37)
[2021-07-31] MEDS ORDERED: SODIUM CHLORIDE 0.9% 1000ML 1,000 ML ONE (11:37)
[2021-07-31] MEDS ORDERED: ONDANSETRON HCL INJ 2MG/ML 2ML 2 MG/ML VIAL ONE (11:37)
[2021-07-31] MEDS ORDERED: CEFTRIAXONE 1 GM VIAL ONE (11:37)
[2021-07-31] MEDS ORDERED: ACETAMINOPHEN500 MG PO (12:24)
[2021-07-31] MEDS ORDERED: ONDANSETRON ODT4 MG PO (12:24)
[2021-07-31] MEDS ORDERED: METRONIDAZOLE500 MG PO (12:24)
[2021-07-31] MEDS ORDERED: CIPRO500 MG PO (12:24)
[2021-07-31] MEDS ORDERED: LEVOFLOXACIN 500 MG TAB PO ONE (12:30)
[2021-07-31] MEDS ORDERED: LEVOFLOXACIN 500 MG TAB ONE (12:33)
== END 2021-07-31 12:38 | disposition home or self-care (01) ==
LOC: FSED 10:48
DX: R10.30 Lower abdominal pain, unspecified (principal); N39.0 Urinary tract infection, site not specified; K57.32 Diverticulitis of large intestine without perforation or abscess without bleeding; I10 Essential (primary) hypertension; K21.9 Gastro-esophageal reflux disease without esophagitis
CPT/HCPCS: 74177; 80053; 81003; 85025; 96374; 96375; 99284; J0696; J1885; J2405; J7030; Q9967

== ENCOUNTER → 2022-05-01 | Outpatient (CLI) | payer MEDICARE ==
[~2022-05-01] MED LIST changes: +ACETAMINOPHEN500 MG PO; +CIPRO500 MG PO; +METRONIDAZOLE500 MG PO; +ONDANSETRON ODT4 MG PO
== END ==
LOC: CT 14:35
PROVIDERS: ATTEND Family Medicine
DX: S06.0X0A Concussion without loss of consciousness, initial encounter (principal)
CPT/HCPCS: 70450

== ENCOUNTER → 2022-06-25 | Outpatient (CLI) | payer MEDICARE | LOC: DX 10:01 | PROVIDERS: ATTEND Family Medicine | DX: M85.88 Other specified disorders of bone density and structure, other site (principal); N95.9 Unspecified menopausal and perimenopausal disorder | CPT/HCPCS: 77080 ==

== ENCOUNTER 2022-11-01 15:32 | Observation (INO) | payer MEDICARE ==
[~2022-11-01] VITALS: Ht 165.1 cm; Wt 84.4 kg
[~2022-11-01 15:32] MED LIST changes: +BROMFED DM COU118 ML PO
[2022-11-01 15:59] LABS: BASOPHILS # (AUTO) 0.1 (0.0-0.1); BASOPHILS % 1.2 % (0.0-1.0); EOSINOPHILS # (AUTO) 0.2 (0.0-0.4); EOSINOPHILS % 2.3 % (0.0-6.0); HEMATOCRIT 37.1 % (34.2-44.1); HEMOGLOBIN 11.3 g/dL (12.0-16.0); LYMPHOCYTES # (AUTO) 1.5 (1.0-3.2); LYMPHOCYTES % 18.3 % (18.0-39.1); MEAN CORPUSCULAR HEMOGLOBIN 27.8 pg (28-32); MEAN CORPUSCULAR HGB CONC 30.5 g/dL (31-35); MEAN CORPUSCULAR VOLUME 91.2 fL (81-99); MONOCYTES # (AUTO) 0.6 (0.2-0.8); MONOCYTES % 7.5 % (4.4-11.3); NEUTROPHILS # (AUTO) 5.7 (2.1-6.9); NEUTROPHILS % 70.5 % (38.7-80.0); PLATELET COUNT 272 x10e3/uL (140-360); RED BLOOD COUNT 4.07 x10e6/uL (3.6-5.1); RED CELL DISTRIBUTION WIDTH 13.1 % (11.7-14.4)
[2022-11-01 16:13] LABS: ALANINE AMINOTRANSFERASE 31 IU/L (0-55); ALBUMIN 3.3 g/dL (3.5-5.0); ALBUMIN/GLOBULIN RATIO 0.9 (0.8-2.0); ALKALINE PHOSPHATASE 190 IU/L (40-150); ANION GAP 14.2 mmol/L (8-16); BLOOD UREA NITROGEN 22 mg/dL (7-26); BUN/CREATININE RATIO 16 (6-25); CALCIUM 8.7 mg/dL (8.4-10.2); CARBON DIOXIDE 22 mmol/L (22-29); CHLORIDE 110 mmol/L (98-107); CREATININE, SERUM 1.35 mg/dL (0.57-1.11); GLUCOSE 107 mg/dL (74-118); INR 0.86; MAGNESIUM 1.8 MG/DL (1.3-2.1); PARTIAL THROMBOPLASTIN TIME 33.4 seconds (23.8-35.5); POTASSIUM 4.2 mmol/L (3.5-5.1); PROTHROMBIN TIME 12.2 seconds (11.9-14.5); SODIUM 142 mmol/L (136-145)
[2022-11-01] MEDS ORDERED: ONDANSETRON HCL INJ 2MG/ML 2ML 2 MG/ML VIAL IV PRN (17:30)
[2022-11-01] MEDS: FAMOTIDINE 20 MG/2 ML VIAL IV SCH (18:06)
[2022-11-01] MEDS: ACETAMINOPHEN 325 MG TAB PO PRN (18:31)
[2022-11-01] MEDS ORDERED: HYDRALAZINE HCL 20 MG/ML VIAL IV STA ×2 (19:05→19:09)
[2022-11-01 20:00] VITALS: BP 153/66
[2022-11-01 20:40] VITALS: BP 153/66
[2022-11-01 21:00] VITALS: BP 153/66
[2022-11-01 23:54] LABS: CREATINE KINASE 59 IU/L (29-168)
[2022-11-02 01:28] VITALS: BP 158/69
[2022-11-02 05:08] VITALS: BP 134/67
[2022-11-02] MEDS: FAMOTIDINE 20 MG/2 ML VIAL IV SCH (05:55)
[2022-11-02 06:09] LABS: BASOPHILS # (AUTO) 0.1 (0.0-0.1); BASOPHILS % 1.9 % (0.0-1.0); EOSINOPHILS # (AUTO) 0.2 (0.0-0.4); EOSINOPHILS % 3.5 % (0.0-6.0); HEMOGLOBIN 11.7 g/dL (12.0-16.0); LYMPHOCYTES # (AUTO) 1.4 (1.0-3.2); LYMPHOCYTES % 24.4 % (18.0-39.1); MEAN CORPUSCULAR HEMOGLOBIN 28.5 pg (28-32); MEAN CORPUSCULAR HGB CONC 30.8 g/dL (31-35); MEAN CORPUSCULAR VOLUME 92.7 fL (81-99); MONOCYTES # (AUTO) 0.6 (0.2-0.8); MONOCYTES % 9.6 % (4.4-11.3); NEUTROPHILS # (AUTO) 3.4 (2.1-6.9); NEUTROPHILS % 59.9 % (38.7-80.0); PLATELET COUNT 256 x10e3/uL (140-360); RED CELL DISTRIBUTION WIDTH 12.9 % (11.7-14.4)
[2022-11-02 07:09] LABS: ALBUMIN 3.1 g/dL (3.5-5.0); ALBUMIN/GLOBULIN RATIO 0.9 (0.8-2.0); ANION GAP 13.1 mmol/L (8-16); CHOL/HDL RATIO 3.8 (3.0-3.6); CREATININE, SERUM 0.88 mg/dL (0.57-1.11); POTASSIUM 4.1 mmol/L (3.5-5.1)
[2022-11-02 07:34] LABS: CREATINE KINASE 49 IU/L (29-168)
[2022-11-02 08:29] VITALS: BP_SYST 128; BP_SYST 156; BP_DIAS 63; BP_DIAS 70
[2022-11-02 09:00] VITALS: BP 156/70
[2022-11-02] MEDS: ACETAMINOPHEN 325 MG TAB PO PRN (09:00)
[2022-11-02] MEDS ORDERED: HYDRALAZINE HCL 20 MG/ML VIAL IV PRN (09:30)
[2022-11-02] MEDS ORDERED: ENALAPRIL MALEATE 10 MG TAB PO SCH (10:15)
[2022-11-02] MEDS ORDERED: REGADENOSON 0.4 MG/5 ML SYR IV ONE (11:10)
[2022-11-02] MEDS ORDERED: AMLODIPINE BESYLATE 5 MG TAB PO SCH (13:00)
[2022-11-02 13:13] VITALS: BP 164/92
[2022-11-02 14:52] LABS: CREATINE KINASE 53 IU/L (29-168)
[2022-11-02] MEDS ORDERED: ONDANSETRON HCL 4 MG ORAL DISINTEGRATING TAB PO PRN (15:45)
[2022-11-02] MEDS ORDERED: AMLODIPINE BESYL5 MG PO (16:03)
[2022-11-02] MEDS ORDERED: FAMOTIDINE 20 MG TAB PO SCH (17:30)
[2022-11-03] MEDS ORDERED: PANTOPRAZOLE SOD 40 MG TABEC PO SCH (09:00)
== END 2022-11-02 16:47 | disposition home or self-care (01) ==
LOC: ER 15:41 → ERHOLD 17:45 → MED/SURG3 19:46
PROVIDERS: ADMIT Internal Medicine; ATTEND Internal Medicine
DX: R07.89 Other chest pain (principal); R06.02 Shortness of breath; I10 Essential (primary) hypertension; K21.9 Gastro-esophageal reflux disease without esophagitis; Z88.6 Allergy status to analgesic agent; Z79.899 Other long term (current) drug therapy; Z20.822 Contact with and (suspected) exposure to COVID-19; Z59.6 Low income
CPT/HCPCS: 36415 ×2; 71045; 78452; 80053 ×2; 80061; 82550 ×2; 82553 ×2; 83735; 83880; 84484 ×2; 85025 ×2; 85379; 85610; 85730; 93005; 93017; 99284; A9502; G0378 ×2; J0360; J2785; U0002

== ENCOUNTER 2022-11-14 21:37 | Emergency (ER) | payer MEDICARE ==
[~2022-11-14] VITALS: Ht 165.1 cm; Wt 84.4 kg
[~2022-11-14 21:37] MED LIST changes: +AMLODIPINE BESYL5 MG PO
[2022-11-14 22:46] VITALS: BP 150/69
== END 2022-11-14 22:47 | disposition home or self-care (01) ==
LOC: ER 21:47
DX: S62.664A Nondisplaced fracture of distal phalanx of right ring finger, initial encounter for closed fracture (principal); W23.2XXA Caught, crushed, jammed or pinched between a moving and stationary object, initial encounter; Y92.89 Other specified places as the place of occurrence of the external cause; I10 Essential (primary) hypertension; K21.9 Gastro-esophageal reflux disease without esophagitis; Z87.19 Personal history of other diseases of the digestive system
CPT/HCPCS: 99283

== ENCOUNTER 2024-11-25 18:21 | Emergency (ER) | payer MEDICARE ==
[~2024-11-25] VITALS: Ht 167.6 cm; Wt 81.0 kg
[~2024-11-25 18:21] MED LIST changes: +CYCLOBENZAPRINE10 MG PO; +IBUPROFEN200 MG PO; +TYLENOL325 MG PO
[2024-11-25 18:25] VITALS: PULSE 63; RESP 16; TEMP 98.2
[2024-11-25] MEDS: CLONIDINE HCL 0.1 MG TAB PO ONE (18:47)
[2024-11-25] MEDS ORDERED: AMLODIPINE BESY10 MG PO (19:12)
[2024-11-25 19:30] VITALS: BP 174/84; PULSE 64; RESP 16; TEMP 98.2; O2SAT 98
== END 2024-11-25 19:30 | disposition home or self-care (01) ==
LOC: FSED 18:33
DX: I16.0 Hypertensive urgency (principal); I12.9 Hypertensive chronic kidney disease with stage 1 through stage 4 chronic kidney disease, or unspecified chronic kidney disease; N18.9 Chronic kidney disease, unspecified; K21.9 Gastro-esophageal reflux disease without esophagitis; M19.09 Primary osteoarthritis, other specified site
CPT/HCPCS: 80053; 83880; 84484; 85025; 93005; 99283